=== PATIENT | male | born 1950 | race Caucasian/White ===

== ENCOUNTER 2018-03-22 18:07 | Emergency (ER) | payer OTHER ==
[2018-03-22] MEDS ORDERED: ONDANSETRON 4 MG/2 ML VIAL ONE (18:52)
[2018-03-22] MEDS ORDERED: MORPHINE 4 MG/ML SYR ONE (18:52)
--- NOTE | 2018-03-22 20:34 | EDPHYS ---
Physician Documentation [facility] Name: Brando Pizarro Age: 67 yrs Sex: Male : 1950 Arrival Date: 03/22/2018 Time: 18:11 Bed 5 Private MD: Nathen Yoon E ED Physician Abilio Danielson HPI: 03/22 19:00 This 67 yrs old Male presents to ER via EMS with complaints of Right Sided pm1 Jaw Pain. 19:00 The patient or guardian reports pain. The complaints affect the right jaw. Context of pm1 injury: resulted from Cancer. Onset: The symptoms/episode began/occurred 1 week(s) ago. Associated signs and symptoms: Pertinent negatives: shortness of breath, vomiting, dysphagia . Severity of symptoms: in the emergency department the symptoms are actually worse. The patient has experienced similar episodes in the past. The patient has been recently seen by a physician: Dr. Pat two days ago. Patient diagnosed with head and neck cancer two months ago. 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 MD Howard does not take his insurance so has seen Dr. Markham ENT, Dr. Guzman ENT, Dr. Ordoñez Oncology, Dr. Wayne Neurosurgery, and Dr Pat Oncology. Patient has pending immunotherapy with Dr. Ordoñez and Radiation therapy from Dr. Pat. Patient is presenting today with right jaw pain that started 1 week ago. He is currently taking methadone from Dr. Carrera for the right jaw pain. His went to work today so he missed a dose of his methadone. Patient without chest pain or shortness of breath, nausea, vomiting, or any chest pain equivalents. Historical: - Allergies: 18:13 Codeine; sg - PMHx: 18:13 Anxiety; Chronic pain; Diabetes - NIDDM; Hypertension; neuropathy; Cancer; sg - PSHx: 18:13 toe amputation; L shoulder repair; sg - Immunization history:: Adult Immunizations unknown. - Social history:: Smoking status: unknown. - Ebola Screening: : Patient negative for fever greater than or equal to 101.5 degrees Fahrenheit, and additional compatible Ebola Virus Disease symptoms Patient denies exposure to infectious person Patient denies travel to an Ebola-affected area in the 21 days before illness onset No symptoms or risks identified at this time. ROS: 19:00 Constitutional: Negative for fever, chills, and weight loss, Eyes: Negative for injury, pm1 pain, redness, and discharge. 19:00 Neck: Negative for injury, pain, and swelling, Cardiovascular: Negative for chest pain, palpitations, and edema, Respiratory: Negative for shortness of breath, cough, wheezing, and pleuritic chest pain, Abdomen/GI: Negative for abdominal pain, nausea, vomiting, diarrhea, and constipation, Back: Negative for injury and pain, : Negative for injury, bleeding, discharge, and swelling, MS/Extremity: Negative for injury and deformity, Skin: Negative for injury, rash, and discoloration, Neuro: Negative for headache, weakness, numbness, tingling, and seizure. 19:00 ENT: Positive for right jaw pain, Negative for drainage from ear(s), ear pain, sore throat, difficulty swallowing, difficulty handling secretions, hoarseness. Exam: 19:00 Constitutional: This is a well developed, well nourished patient who is awake, alert, pm1 and in no acute distress. Head/Face: Normocephalic, atraumatic. Eyes: Pupils equal round and reactive to light, extra-ocular motions intact. Lids and lashes normal. Conjunctiva and sclera are non-icteric and not injected. Cornea within normal limits. Periorbital areas with no swelling, redness, or edema. 19:00 Neck: Trachea midline, no thyromegaly or masses palpated, and no cervical lymphadenopathy. Supple, full range of motion without nuchal rigidity, or vertebral point tenderness. No Meningismus. Chest/axilla: Normal chest wall appearance and motion. Nontender with no deformity. No lesions are appreciated. Cardiovascular: Regular rate and rhythm with a normal S1 and S2. No gallops, murmurs, or rubs. Normal PMI, no JVD. No pulse deficits. Respiratory: Lungs have equal breath sounds bilaterally, clear to auscultation and percussion. No rales, rhonchi or wheezes noted. No increased work of breathing, no retractions or nasal flaring. Abdomen/GI: Soft, non-tender, with normal bowel sounds. No distension or tympany. No guarding or rebound. No evidence of tenderness throughout. Back: No spinal tenderness. No costovertebral tenderness. Full range of motion. Skin: Warm, dry with normal turgor. Normal color with no rashes, no lesions, and no evidence of cellulitis. MS/ Extremity: Pulses equal, no cyanosis. Neurovascular intact. Full, normal range of motion. 19:00 ENT: External ear(s): are unremarkable, Ear canal(s): are normal, TM's: are normal, Nose: is normal, Mouth: is normal, no drooling, (-) tongue elevation (-) trismus Posterior pharynx: is normal, airway is patent, no erythema, no exudate, no peritonsilar mass, no pooling of secretions, no swelling, no acute changes, Tenderness present to right periauricular area. Right jaw pain tenderness with lightly brushing back of hand against the skin and lam. 19:00 Neuro: Orientation: is normal, Motor: is normal, moves all fours, strength is 5/5 in all extremities. Vital Signs: 18:13 BP 147 / 73; Pulse 88; Resp 18; Pulse Ox 96% on R/A; sg 18:25 Temp 97.7; sg 18:38 BP 105 / 55; Pulse 70; Resp 17; Pulse Ox 100% on R/A; Weight 120.2 kg; Height 6 ft. 0 sg in. 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 pm1 20:18 Data reviewed: vital signs. Data interpreted: Pulse oximetry: on room air is 100 %. pm1 Interpretation: normal. Counseling: I had a detailed discussion with the patient and/or guardian regarding: the historical points, exam findings, and any diagnostic results supporting the discharge/admit diagnosis, the need for outpatient follow up, Oncologist - Dr. Ordoñez, to return to the emergency department if symptoms worsen or persist or if there are any questions or concerns that arise at home. 03/22 18:28 Order name: EKG; Complete Time: 18:29 pm1 03/22 18:28 Order name: EKG - Nurse/Tech; Complete Time: 18:31 pm1 03/22 18:28 Order name: IV Saline Lock; Complete Time: 18:31 pm1 Administered Medications: 18:45 Drug: morphine 4 mg Route: IVP; Site: right antecubital; sg 19:20 Follow up: Pain 9/10 Adult; Response: No adverse reaction; Pain is decreased ed1 18:45 Drug: Zofran 4 mg Route: IVP; Site: right antecubital; sg 19:20 Follow up: Response: No adverse reaction; Nausea is decreased ed1 Disposition: 03/22/18 20:33 Discharged to Home. Impression: Jaw pain. - Condition is Stable. - Discharge Instructions: Constipation, Adult, Metastatic Cancer. - Medication Reconciliation Form, Thank You Letter, Prescription Opioid Use form. - Follow up: Emergency Department; When: As needed; Reason: Worsening of condition. Follow up: Private Physician; When: 2 - 3 days; Reason: Recheck today's complaints, Continuance of care, Re-evaluation by your physician. - Problem is new. - Symptoms have improved. Addendum: 03/24/2018 07:14 Co-signature as Attending Physician, Abilio Danielson MD. r n Signatures: Fred Burnett RN RN Abilio Danielson MD MD rn Riggs, Erika, RN RN ed1 Travis Edgar, FERNANDA BRICK TESTER pm1 Corrections: (The following items were deleted from the chart) 03/22 20:56 20:33 03/22/2018 20:33 Discharged to Home. Impression: Jaw pain. Condition is Stable. ed1 Forms are Medication Reconciliation Form, Thank You Letter, Antibiotic Education, Prescription Opioid Use. Follow up: Emergency Department; When: As needed; Reason: Worsening of condition. Follow up: Private Physician; When: 2 - 3 days; Reason: Recheck today's complaints, Continuance of care, Re-evaluation by your physician. Problem is new. Symptoms have improved. pm1
--- NOTE | 2018-03-22 20:34 | ER ---
Nurse's Notes [facility] Name: Brando Pizarro Age: 67 yrs Sex: Male : 1950 Arrival Date: 03/22/2018 Time: 18:11 Bed 5 Private MD: Nathen Yoon E Diagnosis: Jaw pain Presentation: 03/22 18:15 Presenting complaint: EMS states: pt reports jaw pain that is a 22/10 on a pain scale, sg reports taking a methodone prior to EMS arrival for the pain, pt reports he has a cancer that has mets to the brain, eye and multiple other areas per pt, awaiting follow up appointment at [facility] for treatment care plan. Transition of care: patient was not received from another setting of care. Onset of symptoms was March 22, 2018. Risk Assessment: Do you want to hurt yourself or someone else? Patient reports no desire to harm self or others. Initial Sepsis Screen: Does the patient meet any 2 criteria? No. Patient's initial sepsis screen is negative. Does the patient have a suspected source of infection? No. Patient's initial sepsis screen is negative. Care prior to arrival: Glucose check: 258. 18:15 Method Of Arrival: EMS: [facility] sg 18:15 Acuity: YUMIKO 3 sg Historical: - Allergies: 18:13 Codeine; sg - PMHx: 18:13 Anxiety; Chronic pain; Diabetes - NIDDM; Hypertension; neuropathy; Cancer; sg - PSHx: 18:13 toe amputation; L shoulder repair; sg - Immunization history:: Adult Immunizations unknown. - Social history:: Smoking status: unknown. - Ebola Screening: : Patient negative for fever greater than or equal to 101.5 degrees Fahrenheit, and additional compatible Ebola Virus Disease symptoms Patient denies exposure to infectious person Patient denies travel to an Ebola-affected area in the 21 days before illness onset No symptoms or risks identified at this time. Screenin:14 Abuse screen: Denies threats or abuse. Denies injuries from another. Nutritional sv screening: No deficits noted. Tuberculosis screening: No symptoms or risk factors identified. Fall Risk None identified. Assessment: 18:17 General: Appears in no apparent distress. comfortable, well groomed, well developed, sg well nourished, Behavior is calm, cooperative, appropriate for age. Pain: Complains of pain in right jaw. Neuro: Level of Consciousness is awake, alert, obeys commands, Oriented to person, place, time, situation, Moves all extremities. Speech is normal, Facial symmetry appears normal, Reports seeing spots in the left and right eyes, has been going on now for several days. Cardiovascular: Patient's skin is warm and dry. Chest pain is denied. Respiratory: Airway is patent Respiratory effort is even, unlabored, Respiratory pattern is regular, symmetrical, Breath sounds are clear. GI: Abdomen is round obese, Reports nausea. : No signs and/or symptoms were reported regarding the genitourinary system. EENT: right eye noted to follow pen light slowly. Reports photophobia. Derm: Skin is pink, warm \\T\\ dry. Musculoskeletal: No deficits noted. 19:18 Reassessment: Patient appears in no apparent distress at this time. Patient and/or ed1 family updated on plan of care and expected duration. Pain level reassessed. Patient is alert, oriented x 3, equal unlabored respirations, skin warm/dry/pink. Pt states "My pain has lessened but it is still there. Also, do you think the doctor can give me something for constipation." Pt reports BM yesterday. Travis notified, no new orders received. 20:54 Reassessment: Patient appears in no apparent distress at this time. Patient and/or ed1 family updated on plan of care and expected duration. Pain level reassessed. Patient is alert, oriented x 3, equal unlabored respirations, skin warm/dry/pink. Patient states feeling better. Patient states symptoms have improved. Vital Signs: 18:13 BP 147 / 73; Pulse 88; Resp 18; Pulse Ox 96% on R/A; sg 18:25 Temp 97.7; sg 18:38 BP 105 / 55; Pulse 70; Resp 17; Pulse Ox 100% on R/A; Weight 120.2 kg; Height 6 ft. 0 sg in. 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 sg 18:11 Nathen Yoon MD is Private Physician. sg 18:12 Arm band placed on. sg 18:14 Travis Edgar NP is PHCP. pm1 18:14 Abilio Danielson MD is Attending Physician. pm1 18:14 Patient has correct armband on for positive identification. Bed in low position. sv court monitor on. Pulse ox on. NIBP on. Door closed. Head of bed elevated. 18:17 Triage completed. sg 18:30 Inserted saline lock: 20 gauge in right antecubital area, using aseptic technique. jb1 18:30 EKG done, by ED staff, reviewed by Travis Edgar NP. jb1 19:09 Es Bravo RN is Primary Nurse. ed1 20:54 No provider procedures requiring assistance completed. IV discontinued, intact, ed1 bleeding controlled, No redness/swelling at site. Pressure dressing applied. Administered Medications: 18:45 Drug: morphine 4 mg Route: IVP; Site: right antecubital; sg 19:20 Follow up: Pain 9/10 Adult; Response: No adverse reaction; Pain is decreased ed1 18:45 Drug: Zofran 4 mg Route: IVP; Site: right antecubital; sg 19:20 Follow up: Response: No adverse reaction; Nausea is decreased ed1 Outcome: 20:33 Discharge ordered by MD. pm1 20:54 Discharged to home ambulatory, with significant other. ed1 20:54 Condition: good 20:54 Discharge instructions given to patient, Instructed on discharge instructions, follow up and referral plans. Demonstrated understanding of instructions, follow-up care. 20:56 Patient left the ED. ed1 Signatures: Ravi Murphy jb1 Nallely Hall RN RN Fred Burnett RN RN Es Bravo RN RN ed1 Travis Edgar NP VASCULAR RADIOLOGIST pm1 Corrections: (The following items were deleted from the chart) 18:21 18:13 BP 147 / 73; Pulse 88bpm; Resp 18bpm; Pulse Ox 96% RA; sg sg 18:21 18:15 Care prior to arrival: None. sg sg
[2018-03-22 21:14] VITALS: BP 109/76; TEMP 97.2; O2SAT 99
--- NOTE | 2018-03-23 08:16 | EKG ---
Test Date: 2018-03-22 Test Time: 18:13:49 Boat Ride Operator: NAS MEASUREMENT RESULTS: Intervals: Rate: 74 VA: 164 QRSD: 112 QT: 428 QTc: 475 [place]: P: 32 VA: 164 QRS: -37 T: -74 INTERPRETIVE STATEMENTS: Normal sinus rhythm Left axis deviation ST & T wave abnormality, consider lateral ischemia Prolonged QT Abnormal ECG Compared to ECG 01/20/2016 07:44:28 ST (T wave) deviation now present Possible ischemia now present Ventricular premature complex(es) no longer present Electronically Signed On 03-23-18 08:09:11 SANITATION SUPERINTENDENT by Ralph Ya
== END 2018-03-22 20:56 | disposition home or self-care (01) ==
LOC: ER 18:07
DX: R68.84 Jaw pain (principal); C79.89 Secondary malignant neoplasm of other specified sites
CPT/HCPCS: 93005; 96374; 96375; 99284; J2405

== ENCOUNTER 2018-03-26 08:13 | Emergency (ER) | payer OTHER ==
[2018-03-26] MEDS ORDERED: NA CHLORIDE 0.9% 1,000 ML ONE (09:08)
[2018-03-26] MEDS ORDERED: FENTANYL CITR 100 MCG/2 ML ONE (09:18)
[2018-03-26] MEDS ORDERED: ONDANSETRON 4 MG/2 ML VIAL ONE (09:18)
--- NOTE | 2018-03-26 10:44 | ER ---
Nurse's Notes [facility] Name: Brando Pizarro Age: 67 yrs Sex: Male : 1950 Arrival Date: 03/26/2018 Time: 08:16 Bed 6 Private MD: Nathen Yoon E Diagnosis: Headache Presentation: 03/26 08:17 Presenting complaint: Patient states: "I am having head pain where my brain cancer is aa5 and back pain". Pt states "my pain pills were working and now they are not". Pt also reports vomiting. Pt reports being seen here a few days ago. 08:17 Method Of Arrival: Wheelchair aa5 08:17 Transition of care: patient was not received from another setting of care. Onset of aa5 symptoms was March 2018. Care prior to arrival: None. 08:17 Acuity: YUMIKO 3 aa5 10:57 Risk Assessment: Do you want to hurt yourself or someone else? Patient reports no bp desire to harm self or others. Initial Sepsis Screen: Does the patient meet any 2 criteria? No. Patient's initial sepsis screen is negative. Does the patient have a suspected source of infection? No. Patient's initial sepsis screen is negative. Triage Assessment: 08:24 General: Appears in no apparent distress. uncomfortable, Behavior is cooperative, bp appropriate for age, anxious. Pain: Complains of pain in head and back. Historical: - Allergies: 08:18 Codeine; aa5 - PMHx: 08:18 Anxiety; Chronic pain; Diabetes - NIDDM; Hypertension; neuropathy; Brain Cancer; aa5 - PSHx: 08:18 toe amputation; L shoulder repair; aa5 - Immunization history:: Adult Immunizations up to date. - Ebola Screening: : No symptoms or risks identified at this time. - Social history:: Smoking status: Patient/guardian denies using tobacco. Screenin:25 Abuse screen: Denies threats or abuse. Denies injuries from another. Nutritional bp screening: No deficits noted. Tuberculosis screening: No symptoms or risk factors identified. Fall Risk None identified. Assessment: 08:30 General: Appears in no apparent distress. uncomfortable, Behavior is cooperative, bp appropriate for age, anxious. Pain: Complains of pain in back and head. Neuro: Level of Consciousness is awake, alert, obeys commands, Oriented to person, place, time, situation, Appropriate for age. Cardiovascular: No deficits noted. Respiratory: No deficits noted. Airway Respiratory effort is even, unlabored, Respiratory pattern is regular, symmetrical. GI: No signs and/or symptoms were reported involving the gastrointestinal system. : No signs and/or symptoms were reported regarding the genitourinary system. EENT: No deficits noted. Derm: No deficits noted. Musculoskeletal: Circulation, motion, and sensation intact. Range of motion: intact in all extremities. 10:56 Reassessment: PT D/C HOME VIA W/C WITH FAMILY, DX WITH HEADACHE. bp Vital Signs: 08:31 BP 120 / 61; Pulse 75; Resp 16; Temp 97.6; Pulse Ox 100% on R/A; bp 09:30 BP 101 / 58; Pulse 70; Resp 14; Pulse Ox 96% ; bp 10:20 BP 109 / 75; Pulse 72; Resp 18; Pulse Ox 99% on R/A; ca1 ED Course: 08:16 Patient arrived in ED. mr 08:16 Nathen Yoon MD is Private Physician. mr 08:18 Dennis Marshall, JYOTHI is Primary Nurse. bp 08:18 Arm band placed on. aa5 08:24 Triage completed. aa5 08:25 Patient has correct armband on for positive identification. Bed in low position. Call bp light in reach. Side rails up X2. Adult w/ patient. 08:26 Travis Edgar NP is PHCP. pm1 08:26 Stevie Ochoa MD is Attending Physician. pm1 09:05 Inserted saline lock: 20 gauge in right antecubital area, using aseptic technique. bp Blood collected. 10:56 No provider procedures requiring assistance completed. IV discontinued, intact, bp bleeding controlled, No redness/swelling at site. Pressure dressing applied. Administered Medications: 09:04 Drug: NS 0.9% 1000 ml Route: IV; Rate: 1000 ml; Site: right antecubital; bp 10:00 Follow up: IV Status: Completed infusion; IV Intake: 1000ml bp 09:11 Drug: fentaNYL (PF) 50 mcg Route: IVP; Site: right antecubital; bp 10:56 Follow up: Response: Pain is decreased bp 09:11 Drug: Zofran 4 mg Route: IVP; Site: right antecubital; bp 10:56 Follow up: Response: No adverse reaction bp Intake: 10:00 IV: 1000ml; Total: 1000ml. bp Outcome: 10:44 Discharge ordered by . pm1 10:57 Discharged to home via wheelchair, with family. bp 10:57 Condition: stable 10:57 Discharge instructions given to patient, family, Instructed on discharge instructions, follow up and referral plans. medication usage, Demonstrated understanding of instructions, follow-up care, medications, Prescriptions given X 1. 10:58 Patient left the ED. bp Signatures: Lian Bunch mr HymanThu, RN RN aa5 Benton Pearl RN RN la1 Travis Edgar, FOUNDRY PATTERNMAKER FOUNDRY PATTERNMAKER pm1 Dennis Marshall RN RN bp Radha Welch RN RN ca1 Corrections: (The following items were deleted from the chart) 08:24 08:17 Presenting complaint: Patient states: "I am having head pain where my brain aa5 cancer is and back pain". Pt states "my pain pills were working and now they are not". Pt also reports vomiting. aa5 09:49 08:31 BP 120 / 61; Pulse 75bpm; Resp 16bpm; Pulse Ox 100% RA; la1 bp
--- NOTE | 2018-03-26 10:44 | EDPHYS ---
Physician Documentation [facility] Name: Brando Pizarro Age: 67 yrs Sex: Male : 1950 Arrival Date: 03/26/2018 Time: 08:16 Bed 6 Private MD: Nathen Yoon E ED Physician Stevie Ochoa HPI: 03/26 09:05 This 67 yrs old Male presents to ER via Wheelchair with complaints of Pain pm1 All Over. 09:05 The patient complains of pain to the right jaw and right base of the skull and right pm1 side of neck. The patient describes the headache as aching, constant. Onset: The symptoms/episode began/occurred 3 day(s) ago, and became worse this morning. Associated signs and symptoms: Pertinent negatives: dizziness, fever, nausea, neck stiffness, paresthesias, Photophobia rash, vomiting, weakness. Severity of symptoms: in the emergency department the pain is actually worse. Headache History: The patient has had previous headaches and this one is similar to previous episodes. The symptoms are alleviated by methadone the symptoms are aggravated by nothing. The patient has experienced similar episodes in the past, chronically. The patient has been recently seen at the [facility] Emergency Department, this week, for similar complaints. Patient with metastatic neck and head cancer and is taking methadone for his pain. Patient reports methadone has not been working for his pain for the past 3 days. Historical: - Allergies: 08:18 Codeine; aa5 - PMHx: 08:18 Anxiety; Chronic pain; Diabetes - NIDDM; Hypertension; neuropathy; Brain Cancer; aa5 - PSHx: 08:18 toe amputation; L shoulder repair; aa5 - Immunization history:: Adult Immunizations up to date. - Ebola Screening: : No symptoms or risks identified at this time. - Social history:: Smoking status: Patient/guardian denies using tobacco. ROS: 09:05 Constitutional: Negative for fever, chills, and weight loss, Eyes: Negative for injury, pm1 pain, redness, and discharge, ENT: Negative for injury, pain, and discharge, Cardiovascular: Negative for chest pain, palpitations, and edema. 09:05 Respiratory: Negative for shortness of breath, cough, wheezing, and pleuritic chest pain, Abdomen/GI: Negative for abdominal pain, nausea, vomiting, diarrhea, and constipation, Back: Negative for injury and pain, : Negative for injury, bleeding, discharge, and swelling, MS/Extremity: Negative for injury and deformity, Skin: Negative for injury, rash, and discoloration. 09:05 Neck: Positive for pain at rest, of the right trapezius, Negative for stiffness. 09:05 Neuro: Positive for headache, Negative for dizziness, numbness, tingling, weakness. Exam: 09:05 Constitutional: This is a well developed, well nourished patient who is awake, alert, pm1 and in no acute distress. Eyes: Pupils equal round and reactive to light, extra-ocular motions intact. Lids and lashes normal. Conjunctiva and sclera are non-icteric and not injected. Cornea within normal limits. Periorbital areas with no swelling, redness, or edema. ENT: Nares patent. No nasal discharge, no septal abnormalities noted. Tympanic membranes are normal and external auditory canals are clear. Oropharynx with no redness, swelling, or masses, exudates, or evidence of obstruction, uvula midline. Mucous membranes moist. Chest/axilla: Normal chest wall appearance and motion. Nontender with no deformity. No lesions are appreciated. Cardiovascular: Regular rate and rhythm with a normal S1 and S2. No gallops, murmurs, or rubs. No pulse deficits. Respiratory: Lungs have equal breath sounds bilaterally, clear to auscultation and percussion. No rales, rhonchi or wheezes noted. No increased work of breathing, no retractions or nasal flaring. Abdomen/GI: Soft, non-tender, with normal bowel sounds. No distension or tympany. No guarding or rebound. No evidence of tenderness throughout. Back: No spinal tenderness. No costovertebral tenderness. Full range of motion. Skin: Warm, dry with normal turgor. Normal color with no rashes, no lesions, and no evidence of cellulitis. MS/ Extremity: Pulses equal, no cyanosis. Neurovascular intact. Full, normal range of motion. 09:05 Head/face: Noted is no obvious of injury or deformity except tenderness, of the right ear and right jaw. 09:05 Neck: External neck: tenderness, of the right trapezius, C-spine: vertebral tenderness, is not appreciated. 09:05 Neuro: Orientation: is normal, Mentation: is normal, Motor: moves all fours, strength is normal, strength is 5/5 in all extremities, Sensation: is normal, no obvious gross deficits. Vital Signs: 08:31 BP 120 / 61; Pulse 75; Resp 16; Temp 97.6; Pulse Ox 100% on R/A; bp 09:30 BP 101 / 58; Pulse 70; Resp 14; Pulse Ox 96% ; bp 10:20 BP 109 / 75; Pulse 72; Resp 18; Pulse Ox 99% on R/A; ca1 MDM: 08:50 Patient medically screened. pm1 10:40 Data reviewed: vital signs. Data interpreted: Pulse oximetry: on room air is 99 %. pm1 Interpretation: normal. Counseling: I had a detailed discussion with the patient and/or guardian regarding: the historical points, exam findings, and any diagnostic results supporting the discharge/admit diagnosis, the need for outpatient follow up, Oncology, to return to the emergency department if symptoms worsen or persist or if there are any questions or concerns that arise at home. 10:40 ED course: Patient's pain improved with fentanyl. Patient feels ready to go home pm1 because pain at prior baseline level. Requested to have lactulose for constipation related to methadone. 03/26 08:59 Order name: IV Saline Lock; Complete Time: 09:04 pm1 Administered Medications: 09:04 Drug: NS 0.9% 1000 ml Route: IV; Rate: 1000 ml; Site: right antecubital; bp 10:00 Follow up: IV Status: Completed infusion; IV Intake: 1000ml bp 09:11 Drug: fentaNYL (PF) 50 mcg Route: IVP; Site: right antecubital; bp 10:56 Follow up: Response: Pain is decreased bp 09:11 Drug: Zofran 4 mg Route: IVP; Site: right antecubital; bp 10:56 Follow up: Response: No adverse reaction bp Disposition: 11:40 Co-signature as Attending Physician, Stevie Ochoa MD I agree with the assessment and 4 plan of care. Disposition: 03/26/18 10:44 Discharged to Home. Impression: Headache. - Condition is Stable. - Discharge Instructions: Constipation, Adult, General Headache Without Cause. - Prescriptions for Lactulose 10 gram/15 mL Oral Solution - take 30 milliliter by ORAL route once daily; 300 milliliter. - Medication Reconciliation Form, Thank You Letter, Prescription Opioid Use form. - Follow up: Emergency Department; When: As needed; Reason: Worsening of condition. Follow up: Private Physician; When: 2 - 3 days; Reason: Recheck today's complaints, Continuance of care, Re-evaluation by your physician. - Problem is new. - Symptoms have improved. Signatures: Thu Hyman RN RN aa5 Travis Edgar NP ASSISTANT PRESS OPERATOR pm1 Dennis Marshall RN RN bp Stevie Ochoa MD MD tw4 Corrections: (The following items were deleted from the chart) 10:58 10:44 03/26/2018 10:44 Discharged to Home. Impression: Headache. Condition is Stable. bp Forms are Medication Reconciliation Form, Thank You Letter, Antibiotic Education, Prescription Opioid Use. Follow up: Emergency Department; When: As needed; Reason: Worsening of condition. Follow up: Private Physician; When: 2 - 3 days; Reason: Recheck today's complaints, Continuance of care, Re-evaluation by your physician. Problem is new. Symptoms have improved. pm1
[2018-03-26 11:05] VITALS: TEMP 97.6
[2018-03-26 11:08] VITALS: BP 109/75; O2SAT 99
== END 2018-03-26 10:58 | disposition home or self-care (01) ==
LOC: ER 08:13
DX: R51 Headache (principal); I10 Essential (primary) hypertension; Z88.5 Allergy status to narcotic agent; Z85.841 Personal history of malignant neoplasm of brain
CPT/HCPCS: J2405; J3010; J7030

== ENCOUNTER 2018-04-03 10:32 | Observation (INO) | payer OTHER ==
--- NOTE | 2018-04-03 11:37 | ER ---
Nurse's Notes [facility] Name: Brando Pizarro Age: 67 yrs Sex: Male : 1950 Arrival Date: 04/03/2018 Time: 10:35 Bed 8 Private MD: Nathen Yoon E Diagnosis: Gastrointestinal hemorrhage, unspecified-upper;Weakness;Anemia, unspecified;Elevated white blood cell count;Pressure ulcer of buttock;Unspecified combined systolic (congestive) and diastolic (congestive) heart failure Presentation: 04/03 10:37 Presenting complaint: Patient states: low HBG-7.8 on Tuesday, lethargic, pale, SOB with sv exertion, generalized weakness. Transition of care: patient was not received from another setting of care. Onset of symptoms was March 31, 2018. Care prior to arrival: None. 10:37 Method Of Arrival: Wheelchair sv 10:37 Acuity: YUMIKO 3 sv 10:40 Note Pt is on immunotherapy. sv 10:50 Risk Assessment: Do you want to hurt yourself or someone else? Patient reports no ca1 desire to harm self or others. 10:50 Initial Sepsis Screen: Does the patient meet any 2 criteria? No. Patient's initial ca1 sepsis screen is negative. Does the patient have a suspected source of infection? Yes: Skin breakdown/wound. Historical: - Allergies: 10:40 Codeine; sv - PMHx: 10:40 Anxiety; brain cancer; Cancer; Chronic pain; Diabetes - NIDDM; Hypertension; neuropathy;sv - PSHx: 10:40 toe amputation; L shoulder repair; sv - Immunization history:: Adult Immunizations not up to date. - Social history:: Smoking status: Patient/guardian denies using tobacco. - Family history:: not pertinent. - Ebola Screening: : Patient denies exposure to infectious person Patient denies travel to an Ebola-affected area in the 21 days before illness onset. Screenin:50 Abuse screen: Denies threats or abuse. Denies injuries from another. Nutritional ca1 screening: No deficits noted. Tuberculosis screening: No symptoms or risk factors identified. Fall Risk Fall in past 12 months (25 points). IV access (20 points). Assessment: 10:50 General: Appears in no apparent distress. ill, Behavior is calm, cooperative, ca1 appropriate for age. Pain: Complains of pain in head Pain does not radiate. Pain currently is 7 out of 10 on a pain scale. Neuro: Level of Consciousness is awake, alert, obeys commands, Oriented to person, place, time, situation. Cardiovascular: Heart tones S1 S2 present Capillary refill is > 3 seconds. Respiratory: Airway is patent Trachea midline Respiratory effort is even, unlabored, Respiratory pattern is regular, symmetrical, Breath sounds are clear bilaterally. GI: Abdomen is flat, non-distended, Bowel sounds present X 4 quads. Abd is soft and non tender X 4 quads. : No signs and/or symptoms were reported regarding the genitourinary system. EENT: No signs and/or symptoms were reported regarding the EENT system. Derm: Skin is intact, Skin is pale, Skin temperature is warm. Musculoskeletal: Circulation, motion, and sensation intact. 11:49 Reassessment: Patient appears in no apparent distress at this time. Patient and/or ca1 family updated on plan of care and expected duration. Pain level reassessed. Patient is alert, oriented x 3, equal unlabored respirations, skin warm/dry/pink. at bedside. 12:30 Reassessment: Patient appears in no apparent distress at this time. Patient is alert, ca1 oriented x 3, equal unlabored respirations, skin warm/dry/pink. Patient complains of Headache and pain at bedsore. Notified provider. 13:10 Reassessment: Received call from blood bank stated they found unknown antibody and aa5 stated need for blood draw send off. Blood will be drawn by laborer heading. Dr. Howard notified and transfusion on hold. . 13:13 Reassessment: Wound dressing done. ca1 13:13 Derm: Decubitus located on sacrum approximately 1cm is stage I is draining none noted. ca1 14:01 Reassessment: 2nd set of blood cultures drawn and sent to lab. RBC consent form signed aa5 by patient (see pt's chart). 14:01 Neuro: Level of Consciousness is awake, alert, obeys commands, Oriented to person, aa5 place, time, situation. Respiratory: Airway is patent Respiratory effort is even, unlabored, Respiratory pattern is regular, symmetrical. Derm: Skin is dry, Skin is pale, Skin temperature is warm. 14:03 Reassessment: Patient complains of headache, informed provider. ca1 Vital Signs: 10:39 BP 123 / 65; Pulse 79; Resp 20; Temp 98.2; Pulse Ox 99% ; Weight 108.86 kg; Height 6 sv ft. 0 in. (182.88 cm); Pain 6/10; 11:30 BP 127 / 70; Pulse 76; Resp 18; Pulse Ox 98% on R/A; ca1 12:50 BP 118 / 69; Pulse 76; Resp 21; Pulse Ox 100% on R/A; ca1 13:00 BP 120 / 66; Pulse 75; Resp 19; Pulse Ox 95% on R/A; ca1 14:00 BP 125 / 69; Pulse 79; Resp 19; Pulse Ox 96% on R/A; ca1 14:42 BP 121 / 58; Pulse 74; Resp 19; Pulse Ox 98% on R/A; ca1 10:39 Body Mass Index 32.55 (108.86 kg, 182.88 cm) sv ED Course: 10:35 Patient arrived in ED. mr 10:36 Nathen Yoon MD is Private Physician. mr 10:39 Triage completed. sv 10:40 Arm band placed on. sv 10:43 Radha Welch, JYOTHI is Primary Nurse. ca1 10:50 Patient has correct armband on for positive identification. Placed in gown. Bed in low ca1 position. Call light in reach. Side rails up X2. monitoring coordinator on. Pulse ox on. NIBP on. Warm blanket given. 10:52 Jonah Howard MD is Attending Physician. julian 11:15 EKG done, by plating technician. reviewed by Jonah Howard MD. at1 11:26 Inserted saline lock: 20 gauge in right antecubital area, using aseptic technique. em1 Blood collected. 11:26 Initial lab(s) drawn, by ct, sent to lab. em1 11:30 Inserted saline lock: 20 gauge in left antecubital area, using aseptic technique. Blood ca1 collected. 11:34 Lolita Wayne MD is Hospitalizing Provider. julian 12:09 X-ray completed. Portable x-ray completed in exam room. Patient tolerated procedure jw2 well. 12:12 XRAY Chest (1 view) In Process Unspecified. EDMS 13:00 Notified ED physician of a critical lab result(s). Trop=0.76. iw 14:37 No provider procedures requiring assistance completed. Patient admitted, IV remains in ca1 place. Administered Medications: 11:35 Drug: ProTONIX 80 mg Route: IVP; Site: left antecubital; ca1 13:17 Follow up: Response: No adverse reaction ca1 11:50 Drug: ProTONIX 8 mg/hr Route: IV; Rate: 25 ml/hr; Site: left antecubital; ca1 13:16 Follow up: IV Status: Infusion continued upon admission ca1 12:40 Drug: fentaNYL (PF) 50 mcg Route: IVP; Site: right antecubital; ca1 14:03 Follow up: Response: No adverse reaction; Pain is unchanged, physician notified ca1 12:42 Drug: Zofran 4 mg Route: IVP; Site: right antecubital; ca1 14:34 Follow up: Response: No adverse reaction; Nausea is decreased ca1 12:45 Drug: Lasix 40 mg Route: IVP; Site: right antecubital; ca1 14:35 Follow up: Urine output 800 ml; Response: No adverse reaction ca1 14:05 Drug: fentaNYL (PF) 50 mcg Route: IVP; Site: right antecubital; ca1 15:01 Follow up: Response: No adverse reaction; Pain is decreased ca1 14:10 Drug: Cefepime 1 grams Route: IVPB; Rate: 200 ml/hr; Infused Over: 30 mins; Site: right ca1 antecubital; 14:35 Follow up: Response: No adverse reaction; IV Status: IVP per pharmacy protocol. ca1 14:20 Drug: vancoMYCIN 1 grams Route: IVPB; Infused Over: 2 hrs; Site: right antecubital; ca1 14:35 Follow up: Response: No adverse reaction; IV Status: Infusion continued upon admission ca1 Output: 14:35 Urine: 800ml; Total: 800ml. ca1 Outcome: 11:35 Decision to Hospitalize by Provider. julian 14:59 Admitted to Med/surg accompanied by tech, via stretcher, room 207, with chart, Report ca1 called to Kaelyn Jones RN 14:59 Condition: stable 14:59 Instructed on the need for admit. 15:09 Patient left the ED. ca1 Signatures: Dispatcher [employer] EDNallely Sorensen RN RN sv Anderson, Corey, MD MD cha Rivera, Lian mr Kennedi Rodriguez RN RN iw Martinez, Eric em1 Thu Hyman RN RN aa5 Swathi Conrad, toggler EKG Tat1 Sammie Wadsworth jw2 Radha Welch RN RN ca1 Corrections: (The following items were deleted from the chart) 14:16 14:01 Reassessment: Patient is alert, oriented x 3, equal unlabored respirations, skin aa5 warm/dry/pink. 2nd set of blood cultures drawn and sent to lab. RBC consent form signed by patient (see pt's chart). aa5 14:52 13:13 Reassessment: Wound dressing done. ca1 ca1
--- NOTE | 2018-04-03 11:37 | EDPHYS ---
Physician Documentation [facility] Name: Brando Pizarro Age: 67 yrs Sex: Male : 1950 Arrival Date: 04/03/2018 Time: 10:35 Bed 8 Private MD: Nathen Yoon E ED Physician Jonah Howard HPI: 04/03 11:28 This 67 yrs old Male presents to ER via Wheelchair with complaints of julian Abnormal Lab Results. 11:28 The patient presents to the emergency department with rectal bleeding, a moderate julian amount, melena, with multiple such episodes. Onset: The symptoms/episode began/occurred 3 day(s) ago. Abdominal pain: none is appreciated. Modifying factors: The symptoms are alleviated by nothing, the symptoms are aggravated by nothing. weakness. The patient presents with generalized weakness. Modifying factors: The symptoms are alleviated by closing eyes, lying down. Severity of symptoms: At their worst the symptoms were moderate in the emergency department the symptoms are unchanged. Historical: - Allergies: 10:40 Codeine; sv - PMHx: 10:40 Anxiety; brain cancer; Cancer; Chronic pain; Diabetes - NIDDM; Hypertension; neuropathy;sv - PSHx: 10:40 toe amputation; L shoulder repair; sv - Immunization history:: Adult Immunizations not up to date. - Social history:: Smoking status: Patient/guardian denies using tobacco. - Family history:: not pertinent. - Ebola Screening: : Patient denies exposure to infectious person Patient denies travel to an Ebola-affected area in the 21 days before illness onset. ROS: 11:28 Constitutional: Negative for fever, chills, and weight loss, Eyes: Negative for injury, julian pain, redness, and discharge, ENT: Negative for injury, pain, and discharge, Neck: Negative for injury, pain, and swelling, Cardiovascular: Negative for chest pain, palpitations, and edema, Respiratory: Negative for shortness of breath, cough, wheezing, and pleuritic chest pain, Abdomen/GI: Negative for abdominal pain, nausea, vomiting, diarrhea, and constipation, : Negative for injury, bleeding, discharge, and swelling, Neuro: Negative for headache, weakness, numbness, tingling, and seizure, Psych: Negative for depression, anxiety, suicide ideation, homicidal ideation, and hallucinations, Allergy/Immunology: Negative for hives, rash, and allergies, Endocrine: Negative for neck swelling, polydipsia, polyuria, polyphagia, and marked weight changes, Hematologic/Lymphatic: Negative for swollen nodes, abnormal bleeding, and unusual bruising. 11:28 Abdomen/GI: Positive for black/tarry stool, rectal bleeding. 11:28 Back: Positive for 11:28 Skin: Positive for pallor. Exam: 11:28 Constitutional: This is a well developed, well nourished patient who is awake, alert, julian and in no acute distress. Head/Face: Normocephalic, atraumatic. ENT: Nares patent. No nasal discharge, no septal abnormalities noted. Tympanic membranes are normal and external auditory canals are clear. Oropharynx with no redness, swelling, or masses, exudates, or evidence of obstruction, uvula midline. Mucous membranes moist. Neck: Trachea midline, no thyromegaly or masses palpated, and no cervical lymphadenopathy. Supple, full range of motion without nuchal rigidity, or vertebral point tenderness. No Meningismus. Chest/axilla: Normal chest wall appearance and motion. Nontender with no deformity. No lesions are appreciated. Cardiovascular: Regular rate and rhythm with a normal S1 and S2. No gallops, murmurs, or rubs. Normal PMI, no JVD. No pulse deficits. Respiratory: Lungs have equal breath sounds bilaterally, clear to auscultation and percussion. No rales, rhonchi or wheezes noted. No increased work of breathing, no retractions or nasal flaring. Back: No spinal tenderness. No costovertebral tenderness. Full range of motion. Male : Normal genitalia with no discharge or lesions. MS/ Extremity: Pulses equal, no cyanosis. Neurovascular intact. Full, normal range of motion. Neuro: Awake and alert, GCS 15, oriented to person, place, time, and situation. Cranial nerves II-XII grossly intact. Motor strength 5/5 in all extremities. Sensory grossly intact. Cerebellar exam normal. Normal gait. Psych: Awake, alert, with orientation to person, place and time. Behavior, mood, and affect are within normal limits. 11:28 Abdomen/GI: Inspection: abdomen appears normal, Bowel sounds: normal, Palpation: abdomen is soft and non-tender, Rectal exam: rectal tone normal, Stool: guaiac positive, black, hemorrhoid(s), are not appreciated, mass, is not appreciated, swelling, is not appreciated, tenderness, is not appreciated, Liver: no appreciated palpable abnormalities, Hernia: not appreciated. Vital Signs: 10:39 BP 123 / 65; Pulse 79; Resp 20; Temp 98.2; Pulse Ox 99% ; Weight 108.86 kg; Height 6 sv ft. 0 in. (182.88 cm); Pain 6/10; 11:30 BP 127 / 70; Pulse 76; Resp 18; Pulse Ox 98% on R/A; ca1 12:50 BP 118 / 69; Pulse 76; Resp 21; Pulse Ox 100% on R/A; ca1 13:00 BP 120 / 66; Pulse 75; Resp 19; Pulse Ox 95% on R/A; ca1 14:00 BP 125 / 69; Pulse 79; Resp 19; Pulse Ox 96% on R/A; ca1 14:42 BP 121 / 58; Pulse 74; Resp 19; Pulse Ox 98% on R/A; ca1 10:39 Body Mass Index 32.55 (108.86 kg, 182.88 cm) sv MDM: 10:52 Patient medically screened. [facility] 12:35 Data reviewed: vital signs, nurses notes, lab test result(s), EKG, radiologic studies, julian plain films. 04/03 11:12 Order name: Occult Blood--Ancillary; Complete Time: 14:06 04/03 11:27 Order name: Basic Metabolic Panel; Complete Time: 14:06 [facility] 04/03 11:27 Order name: CBC with Diff; Complete Time: 12:30 [facility] 04/03 11:27 Order name: LFT's; Complete Time: 14:06 [facility] 04/03 11:27 Order name: Magnesium; Complete Time: 14:06 [facility] 04/03 11:27 Order name: NT PRO-BNP; Complete Time: 14:06 [facility] 04/03 11:27 Order name: PT-INR; Complete Time: 12:53 [facility] 04/03 11:27 Order name: Troponin (emerg Dept Use Only); Complete Time: 14:06 [facility] 04/03 11:27 Order name: Lipase; Complete Time: 14:06 [facility] 04/03 11:27 Order name: Type And Screen [facility] 04/03 11:31 Order name: Platelet Function Analysis; Complete Time: 14:06 [facility] 04/03 12:24 Order name: Antibody Identification [facility] 04/03 12:34 Order name: Blood Culture Adult (2) [facility] 04/03 12:34 Order name: Procalcitonin [facility] 04/03 11:27 Order name: XRAY Chest (1 view); Complete Time: 12:30 [facility] 04/03 11:27 Order name: EKG; Complete Time: 11:28 [facility] 04/03 11:27 Order name: Cardiac monitoring; Complete Time: 11:28 [facility] 04/03 12:34 Order name: Lactate [facility] 04/03 12:36 Order name: ABO/RH no charge; Complete Time: 12:53 [facility] 04/03 12:47 Order name: Wound Culture [facility] 04/03 12:49 Order name: CONS Physician Consult [facility] 04/03 13:05 Order name: Sendout Antibody ID [facility] 04/03 11:27 Order name: EKG - Nurse/Tech; Complete Time: 11:28 [facility] 04/03 11:27 Order name: IV Saline Lock; Complete Time: 11:50 [facility] 04/03 11:27 Order name: Labs collected and sent; Complete Time: 11:50 [facility] 04/03 11:27 Order name: O2 Per Protocol; Complete Time: 11:28 [facility] 04/03 11:27 Order name: O2 Sat Monitoring; Complete Time: 11:28 [facility] 04/03 11:27 Order name: IV - Large Bore; Complete Time: 11:53 [facility] 04/03 12:34 Order name: Wound dressing; Complete Time: 13:11 [facility] Administered Medications: 11:35 Drug: ProTONIX 80 mg Route: IVP; Site: left antecubital; ca1 13:17 Follow up: Response: No adverse reaction ca1 11:50 Drug: ProTONIX 8 mg/hr Route: IV; Rate: 25 ml/hr; Site: left antecubital; ca1 13:16 Follow up: IV Status: Infusion continued upon admission ca1 12:40 Drug: fentaNYL (PF) 50 mcg Route: IVP; Site: right antecubital; ca1 14:03 Follow up: Response: No adverse reaction; Pain is unchanged, physician notified ca1 12:42 Drug: Zofran 4 mg Route: IVP; Site: right antecubital; ca1 14:34 Follow up: Response: No adverse reaction; Nausea is decreased ca1 12:45 Drug: Lasix 40 mg Route: IVP; Site: right antecubital; ca1 14:35 Follow up: Urine output 800 ml; Response: No adverse reaction ca1 14:05 Drug: fentaNYL (PF) 50 mcg Route: IVP; Site: right antecubital; ca1 15:01 Follow up: Response: No adverse reaction; Pain is decreased ca1 14:10 Drug: Cefepime 1 grams Route: IVPB; Rate: 200 ml/hr; Infused Over: 30 mins; Site: right ca1 antecubital; 14:35 Follow up: Response: No adverse reaction; IV Status: IVP per pharmacy protocol. ca1 14:20 Drug: vancoMYCIN 1 grams Route: IVPB; Infused Over: 2 hrs; Site: right antecubital; ca1 14:35 Follow up: Response: No adverse reaction; IV Status: Infusion continued upon admission ca1 Disposition: 04/03/18 11:35 Hospitalization ordered by Lolita Wayne for Inpatient Admission. Preliminary diagnosis are Gastrointestinal hemorrhage, unspecified - upper, Weakness, Anemia, unspecified, Elevated white blood cell count, Pressure ulcer of buttock, Unspecified combined systolic (congestive) and diastolic (congestive) heart failure. - Bed requested for Telemetry/MedSurg (Inpatient). - Status is Inpatient Admission. ca1 - Condition is Fair. - Problem is new. - Symptoms have improved. UTI on Admission? No Signatures: Dispatcher [employer] EDMS Kirsten Preston Stephanie, JYOTHI RN Jonah Hernandez MD MD cha Acob, Cheryl, RN RN ca1 Corrections: (The following items were deleted from the chart) 12:36 11:35 Hospitalization Ordered by Lolita Wayne MD for Inpatient Admission. Preliminary julian diagnosis is Gastrointestinal hemorrhage, unspecified - upper; Weakness. Bed requested for Telemetry/MedSurg (Inpatient). Status is Inpatient Admission. Condition is Fair. Problem is new. Symptoms have improved. UTI on Admission? No. julian 12:54 12:36 04/03/2018 11:35 Hospitalization Ordered by Lolita Wayne MD for Inpatient julian Admission. Preliminary diagnosis is Gastrointestinal hemorrhage, unspecified - upper; Weakness; Anemia, unspecified; Elevated white blood cell count; Pressure ulcer of buttock. Bed requested for Telemetry/MedSurg (Inpatient). Status is Inpatient Admission. Condition is Fair. Problem is new. Symptoms have improved. UTI on Admission? No. julian 13:38 12:54 04/03/2018 11:35 Hospitalization Ordered by Lolita Wayne MD for Inpatient bd Admission. Preliminary diagnosis is Gastrointestinal hemorrhage, unspecified - upper; Weakness; Anemia, unspecified; Elevated white blood cell count; Pressure ulcer of buttock; Unspecified combined systolic (congestive) and diastolic (congestive) heart failure. Bed requested for Telemetry/MedSurg (Inpatient). Status is Inpatient Admission. Condition is Fair. Problem is new. Symptoms have improved. UTI on Admission? No. julian 15:09 13:38 04/03/2018 11:35 Hospitalization Ordered by Lolita Wayne MD for Inpatient ca1 Admission. Preliminary diagnosis is Gastrointestinal hemorrhage, unspecified - upper; Weakness; Anemia, unspecified; Elevated white blood cell count; Pressure ulcer of buttock; Unspecified combined systolic (congestive) and diastolic (congestive) heart failure. Bed requested for Telemetry/MedSurg (Inpatient). Status is Inpatient Admission. Condition is Fair. Problem is new. Symptoms have improved. UTI on Admission? No. bd
[2018-04-03] MEDS ORDERED: PANTOPRAZOLE 40 MG INJ ONE (11:41)
[2018-04-03] MEDS ORDERED: PANTOPRAZOLE INJ 80 MG in NA CHLORIDE 0.9% 250 ML IV ONE (11:45)
[2018-04-03 12:10] LABS: Absolute Lymphocytes (CBC) 4.6 K/uL (0.7-4.9); Absolute Neutrophil 8.7 K/uL (1.8-8.0); Basophils % 0.6 % (0-1.3); Eosinophils % 0.9 % (0-4.4); Lymphocytes % 31.8 % (15.3-44.8); MPV 8.7 fL (7.6-11.3); Monocytes % 7.1 % (3.3-12.3); RBC Red Blood Cell Count 2.98 M/uL (4.33-5.43)
--- NOTE | 2018-04-03 12:23 | RAD REPORT ---
EXAM DESCRIPTION: RAD - Chest Single View - 04/03/2018 12:11 pm CLINICAL HISTORY: COUGH Chest pain. COMPARISON: Chest Single View dated 08/07/2015; CHEST PA AND LAT 2 VIEW dated 06/12/2014; CHEST SINGLE V IEW dated 01/16/2014; CHEST SINGLE VIEW dated 01/16/2014 FINDINGS: Portable technique limits examination quality. Mild interstitial pulmonary edema is present. Trace pleural fluid is present bilaterally. The heart i s moderately enlarged in size. No displaced fractures. IMPRESSION: Mild to moderate CHF versus volume overload pattern.
[2018-04-03 12:38] LABS: Protime INR 1.23
[2018-04-03] MEDS ORDERED: ONDANSETRON 4 MG/2 ML VIAL ONE (12:53)
[2018-04-03] MEDS ORDERED: FENTANYL CITR 100 MCG/2 ML ONE (12:53)
[2018-04-03] MEDS ORDERED: FUROSEMIDE 40 MG/4 ML VIAL ONE (12:53)
[2018-04-03 12:54] LABS: Albumin 2.6 g/dL (3.4-5.0); Bilirubin Direct 0.1 mg/dL (0-0.2); Bilirubin Total 0.3 mg/dL (0.2-1.0); Magnesium 1.8 mg/dL (1.8-2.4); Potassium 4.5 mmol/L (3.5-5.1); Protein, Total 6.5 g/dL (6.4-8.2)
[2018-04-03 13:00] LABS: Troponin (Emerg Dept Use Only) 0.76 ng/mL (0.0-0.045)
[2018-04-03] MEDS ORDERED: CEFEPIME/SWI 1gm 1 GM/10 ML SYR IV ONE (13:15)
[2018-04-03] MEDS ORDERED: VANCOMYCIN 1 GM/250 ML BAG ONE (14:32)
[2018-04-03] MEDS ORDERED: ACETAMINOPHEN 500 MG TAB PO PRN (15:39)
[2018-04-03] MEDS ORDERED: ONDANSETRON 4 MG/2 ML VIAL IV PRN (15:39)
[2018-04-03] MEDS ORDERED: NA CHLORIDE 0.9% 1,000 ML IV SCH (15:39)
[2018-04-03 15:56] VITALS: O2SAT 97; BMI 32.5
[2018-04-03] MEDS ORDERED: INFLUENZA VACCINE (for 3y+) 0.5 ML DOSE IMVAC ONE (16:00)
[2018-04-03 16:18] VITALS: TEMP 98.2
[2018-04-03 16:25] VITALS: BP 121/58
--- NOTE | 2018-04-03 17:30 | P.SSS ---
Patient History Date of Service: 04/03/18 History of Present Illness: 67-year-old male with significant past medical history of diabetes PAD PVD hypertension hyperlipidemia who presented to the ED complaining of having generalized weakness. Was seen by primary care doctor's office had lab work done which was consistent with hemoglobin of 7.8 thus was sent over to the hospital for further workup. Patient stated that he has been just feeling dizzy for past couple of days and has noted that he had this redness in his rectal area for past couple of days as well. No fever chills noted at the house. Aside from dizziness no other complaints to offer. In the ER patient was found to have hemoglobin of 8.4 along with rectal cellulitis. Patient was admitted to the hospital for observation. And GI consultation GI saw the patient here in the hospital and agreed with discharge home with outpatient workup along with oral antibiotics for perirectal cellulitis Allergies codeine Allergy (Mild, Verified 04/03/18 15:43) Nausea/Vomiting Home Medications: Alprazolam 1 mg PO BEDTIME 01/15/14 Clopidogrel Bisulfate [Clopidogrel] 75 mg PO DAILY 01/15/14 Glimepiride 4 mg PO BID 01/15/14 Metformin HCl 1 mg PO BID 01/15/14 Simvastatin 20 mg PO BEDTIME 01/15/14 Amlodipine [Norvasc*] 10 mg PO DAILY 10/25/15 Lisinopril/Hydrochlorothiazide [Zestoretic 20-25 mg Tablet] 1 each PO DAILY Clindamycin HCl 300 mg PO DAILY #10 capsule 04/03/18 - Past Medical/Surgical History Has patient received pneumonia vaccine in the past: No Diabetic: Yes -: Diabetes -: htn -: cholesterol -: anxiety -: arthritis lower back -: carotid artery stent -: knee sx -: right great toe amputation 09/30/15 -: left 2nd toe amputation -: right 4th toe amputation - Family History Mother -: Diabetes Father -: Other (see notes) Notes: heart failure - Social History Smoking Status: Former smoker Alcohol use: Yes CD- Drugs: No Caffeine use: Yes Place of Residence: Home Review of Systems 10-point ROS is otherwise unremarkable Physical Examination - Vital Signs Temperature: 98.2 F Blood Pressure: 121/58 Pulse: 74 Respirations: 19 - Physical Exam General: Alert, In no apparent distress HEENT: Atraumatic, PERRLA, Mucous membr. moist/pink, EOMI, Sclerae nonicteric Neck: Supple, 2+ carotid pulse no bruit, No LAD, Without JVD or thyroid abnormality Respiratory: Clear to auscultation bilaterally, Normal air movement Cardiovascular: Regular rate/rhythm, Normal S1 S2 Gastrointestinal: Normal bowel sounds, No tenderness Musculoskeletal: No tenderness Integumentary: Skin breakdown Neurological: Normal speech, Normal strength at 5/5 x4 extr, Normal tone Lymphatics: No axilla or inguinal lymphadenopathy - Studies Laboratory Data (last 24 hrs) 04/03/18 11:15: PT 14.6 H, INR 1.23 04/03/18 11:15: WBC 14.5 H, Hgb 8.3 L, Hct 26.0 L, Plt Count 467 H 04/03/18 11:15: Sodium 144, Potassium 4.5, BUN 16, Creatinine 1.13, Glucose 89, Magnesium 1.8, Total Bilirubin 0.3, AST 13 L, ALT 21, Alkaline Phosphatase 90, Lipase 134 Microbiology Data (last 24 hrs): 04/03/18 11:12 Stool Occult Blood - Final - Diagnosis (Problem(s)) (1) Anemia Current Visit: Yes Status: Acute Plan: Acute anemia most likely secondary to iron deficiency versus acute blood -hemoglobin the PCPs office 7.8 hemoglobin here in the hospital in 8.4. -GI consultants recommended outpatient EGD and colonoscopy -patient remained stable while here in the hospital negative for hematemesis for stool occult blood -Dc home to follow up with PCP in about 1-2 days post discharge and GI in about 1-2 days post discharge to schedule for a EGD and colonoscopy. (2) Rectal cellulitis Current Visit: Yes Status: Acute Plan: rectal cellulitis wound cultures pending at this time. Will discharge home on clindamycin followup with wound cultures post discharge by PCP (3) Diabetes mellitus Current Visit: No Status: Chronic Qualifiers: Diabetes mellitus type: type 2 Diabetes mellitus termite exterminator insulin use: without termite exterminator use Diabetes mellitus complication status: without complication Qualified Code(s): E11.9 - Type 2 diabetes mellitus without complications (4) Hyperlipidemia Onset Date: 01/16/14 Current Visit: No Status: Chronic Qualifiers: Hyperlipidemia type: unspecified Qualified Code(s): E78.5 - Hyperlipidemia , unspecified (5) Hypertension Onset Date: 01/16/14 Current Visit: No Status: Chronic Qualifiers: Hypertension type: essential hypertension (6) Obesity (BMI 30.0-34.9) Current Visit: No Status: Chronic (7) PAD (peripheral artery disease) Current Visit: No Status: Chronic (8) PVD (peripheral vascular disease) Onset Date: 10/27/15 Current Visit: No Status: Chronic - Disposition Disposition: ROUTINE DISCHARGE Condition: GOOD Diet: Regular Activity: Ad denisse
--- NOTE | 2018-04-03 20:51 | EKG ---
Test Date: 2018-04-03 Test Time: 11:01:57 Headwaiter/Headwaitress: SHAW MEASUREMENT RESULTS: Intervals: Rate: 75 WI: 166 QRSD: 118 QT: 412 QTc: 460 [place]: P: 26 WI: 166 QRS: 70 T: -79 INTERPRETIVE STATEMENTS: Normal sinus rhythm Low voltage QRS Cannot rule out Anterior infarct, age undetermined ST & T wave abnormality, consider lateral ischemia Abnormal ECG Compared to ECG 03/22/2018 18:13:49 Low QRS voltage now present Myocardial infarct finding now present Left-axis deviation no longer present Prolonged QT interval no longer present ST (T wave) deviation still present Possible ischemia still present Electronically Signed On 04-03-18 20:48:02 HERBARIUM CURATOR by Ralph Ya
== END 2018-04-03 19:39 | disposition home or self-care (01) ==
LOC: ER 10:32 → ERHOLD 13:01 → 2ND 14:57
PROVIDERS: ADMIT Family Medicine; ATTEND Family Medicine
DX: D64.9 Anemia, unspecified (principal); K61.1 Rectal abscess; E11.9 Type 2 diabetes mellitus without complications; E78.5 Hyperlipidemia, unspecified; I10 Essential (primary) hypertension; I73.9 Peripheral vascular disease, unspecified; Z89.411 Acquired absence of right great toe; Z89.422 Acquired absence of other left toe(s); Z89.421 Acquired absence of other right toe(s); Z87.891 Personal history of nicotine dependence; E66.9 Obesity, unspecified; Z68.32 Body mass index [BMI] 32.0-32.9, adult
CPT/HCPCS: 36415; 71045; 80048; 80076; 82272; 83605 ×2; 83690; 83735; 83880; 84145; 84484; 85025; 85576 ×2; 85610; 86850; 86870; 86900; 86901; 86922 ×2; 87040 ×2; 87070; 87077 ×2; 87186 ×2; 87205 ×2; 93005; 96365; 96367; 96375; 99285; C9113 ×2; G0378 ×2; J0692; J1940; J2405; J3010; J3370; J7030

== ENCOUNTER 2018-08-30 16:38 | Inpatient (IN) | payer OTHER ==
[2018-08-30 18:23] LABS: Absolute Lymphocytes (CBC) 0.8 K/uL (0.7-4.9); Basophils % 0.7 % (0-1.3); Eosinophils % 0.3 % (0-4.4); Hematocrit 34.3 % (39.6-49.0); Lymphocytes % 7.8 % (15.3-44.8); MPV 8.6 fL (7.6-11.3); Monocytes % 13.6 % (3.3-12.3); RBC Red Blood Cell Count 4.54 M/uL (4.33-5.43)
[2018-08-30] MEDS ORDERED: FENTANYL CITR 100 MCG/2 ML ONE (18:25)
[2018-08-30] MEDS ORDERED: ACETAMINOPHEN 500 MG TAB ONE (18:26)
[2018-08-30] MEDS ORDERED: CLINDAMYCIN 600MG/D5W 600 MG/50 ML BAG IV ONE (18:26)
[2018-08-30] MEDS ORDERED: ONDANSETRON 4 MG/2 ML VIAL ONE (18:26)
--- NOTE | 2018-08-30 18:40 | P.HP ---
Certification for Inpatient Patient admitted to: Inpatient With expected LOS: >2 Midnights Patient will require the following post-hospital care: None Practitioner: I am a practitioner with admitting privileges, knowledge of patient current condition, hospital course, and medical plan of care. Services: Services provided to patient in accordance with Admission requirements found in Title 42 Section 412.3 of the Code of Federal Regulations Patient History Date of Service: 08/30/18 Primary Care Provider: Dr. Yoon; Surgery-Dr. Montanez Reason for admission: Left foot cellulitis History of Present Illness: 67-year-old male presented to the emergency room with worsening left foot cellulitis. [facility]. Patient seen yesterday for chronic left lateral 5th metatarsal region ulcer at the clinic. It was debrided by surgery. Patient was placed on antibiotic therapy. He was told that if he had more pain, erythema and swelling that he would require hospital admission for IV antibiotic therapy. This morning he noted increasing fever, pain to the region. Increased swelling and erythema noted. Patient has prior amputations to several toes bilaterally. In the ER patient evaluated. CBC, BMP and x-ray pending at this time. Due to worsening symptoms and possible underlying gangrene patient was admitted for IV treatment. Case was discussed with surgery by the ER physician. Patient placed on antibiotic therapy. When I saw the patient ER, he appeared stable. Patient with underlying diabetes , hypertension, peripheral vascular disease. 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 Chemotherapy currently on hold due to chronic wound. Allergies codeine Allergy (Mild, Verified 04/03/18 15:43) Nausea/Vomiting Home medications list reviewed: Yes Home Medications: Alprazolam 1 mg PO BEDTIME 01/15/14 Clopidogrel Bisulfate [Clopidogrel] 75 mg PO DAILY 01/15/14 Glimepiride 4 mg PO DAILY 01/15/14 Metformin HCl 1 mg PO DAILY 01/15/14 Carvedilol [Coreg] 6.25 mg PO BID 08/30/18 Hydrocodone 10/APAP 325 [[place] 10/325] 1 tab PO SEECOM PRN 08/30/18 Methadone HCl [Dolophine] 10 mg PO DIRECTED PRN 08/30/18 Metolazone [Zaroxolyn] 2.5 mg PO SEECOM 08/30/18 PARoxetine HCl [Paxil] 20 mg PO DAILY 08/30/18 Pantoprazole [Protonix Tab] 40 mg PO BID 08/30/18 Torsemide [Demadex] 20 mg PO DAILY 08/30/18 - Past Medical/Surgical History Diabetic: Yes -: Diabetes mellitus type 2, [id number] -: Squamous cell head/neck cancer -: Hypertension -: Hyperlipidemia -: GERD -: Peripheral vascular disease -: Carotid arterial disease -: carotid artery stent -: knee sx -: right great toe amputation 09/30/15 -: left 2nd toe amputation -: right 4th toe amputation Psychosocial/ Personal History: Patient is - Family History Family History: Reviewed- Non-Contributory - Family History Mother -: Diabetes Father -: Other (see notes) Notes: heart failure - Social History Smoking Status: Former smoker Alcohol use: No CD- Drugs: No Caffeine use: Yes Place of Residence: Home Review of Systems General: Fever, Chills, As per HPI Eyes: Unremarkable ENT: Unremarkable Respiratory: Unremarkable Cardiovascular: Unremarkable Gastrointestinal: Unremarkable Genitourinary: Unremarkable Musculoskeletal: Pedal edema, As per HPI Integumentary: As per HPI Neurological: Unremarkable Lymphatics: Unremarkable Physical Examination - Physical Exam General: Alert, In no apparent distress, Oriented x3, Cooperative HEENT: Atraumatic, Normocephalic, PERRLA, Mucous membr. moist/pink Neck: Supple Respiratory: Clear to auscultation bilaterally, Normal air movement Cardiovascular: Normal pulses, Regular rate/rhythm Gastrointestinal: Normal bowel sounds, Soft and benign, Non-distended, No tenderness, No masses, No rebound, No guarding Musculoskeletal: Other (Pain to the left foot noted.) Integumentary: Other (Erythema, swelling noted to the left 5th digit and metatarsal region. Ulcer noted to the distal metatarsal region. Area around the size of a quarter.) Neurological: Normal speech, Normal strength at 5/5 x4 extr, Normal tone, Normal affect Assessment and Plan - Plan Impression: Left foot cellulitis with diabetic foot ulcer to the 5th metatarsal region likely gangrene with possible osteomyelitis Diabetes mellitus type 2, non-insulin dependent Hypertension Peripheral vascular disease Carotid arterial disease GERD Plan: Patient will be admitted for IV antibiotic treatment. Will start cefepime and vancomycin. Blood cultures to be obtained. Patient will have x-ray and MRI of the lower extremity to further evaluate. Patient had recent vascular study done at [facility]. He reports severe PVD. Will get results of this. Surgery is aware of the patient. Patient may require surgical intervention. Await further recommendation. Will monitor Accu-Cheks. Will provide sliding scale. Will restart blood pressure medication. Will start DVT prophylaxis- Lovenox. Will continue with Plavix. Will continue to reassess. Will provide medication for pain. Discharge Plan: Home Plan to discharge in: Greater than 2 days - Advance Directives Does patient have a Living Will: No Does patient have a Durable POA for Healthcare: No - Code Status/Comfort Care Code Status Assessed: Yes (Patient is full code) Time Spent Managing Pts Care (In Minutes): 55
[2018-08-30 18:43] LABS: Potassium 3.7 mmol/L (3.5-5.1)
--- NOTE | 2018-08-30 18:43 | RAD REPORT ---
EXAM DESCRIPTION: RAD - Foot Left 3 View - 08/30/2018 6:32 pm CLINICAL HISTORY: Left Foot pain FINDINGS: Ulceration involves the soft tissue of the lateral forefoot. Air within the soft tissues m ay be related to the ulceration or infection. No bony destructive lesion is seen. Amputation involves second phalanx Large plantar calcaneal spur
--- NOTE | 2018-08-30 18:46 | EDPHYS ---
Physician Documentation [facility] Name: Brando Pizarro Age: 67 yrs Sex: Male : 1950 Arrival Date: 08/30/2018 Time: 16:40 Bed 30 Private MD: Nathen Yoon E; Sinha, Anil ED Physician Bebo Sheth HPI: 08/30 17:51 This 67 yrs old Male presents to ER via Wheelchair with complaints of Wound jr8 Check. 17:51 Patient presents to ED for recheck of: cellulitis. The affected area is on the left jr8 foot. Previous treatment: Previous recheck: the patient's last recheck was 1 day(s) ago. Progress: The patient reports increased fever, pain, redness. The patient has experienced similar episodes in the past, a few times. The patient has been recently seen by a physician:. Patient has been undergoing treatment for chronic left foot wound. Stated that surgeon started to noticed beginning of gangrene. Started running fever today and told to come to ED . Historical: - Allergies: 16:46 Codeine; aj - Home Meds: 17:13 alprazolam 1 mg Oral tab as needed [Active]; carvedilol 6.25 mg oral tab 1 tab every 12 ca1 hours [Active]; pantoprazole 40 mg oral TbEC 1 tab 2 times per day [Active]; spironolactone 50 mg Oral tab 1 tab once daily [Active]; torsemide 20 mg oral tab 1 tab once daily [Active]; clopidogrel 75 mg oral tab 1 tab once daily [Active]; glimepiride 4 mg oral tab 1 tab once daily [Active]; metformin 1,000 mg oral tab 1 tab daily [Active]; metolazone 2.5 mg oral tab 1 tab Twice a week, Tuesday and Tuesday AM [Active]; methadone 10 mg Oral tab as needed [Active]; hydrocodone-acetaminophen 10-325 mg Oral tab as needed [Active]; paroxetine HCl 20 mg oral tab 1 tab as needed [Active]; Senokot S Oral [Active]; Centrum Silver oral oral [Active]; magnesium oxide 500 mg Oral cap [Active]; 17:16 Cipro 500 mg Oral tab 1 tab every 12 hours [Active]; doxycycline hyclate 100 mg Oral ca1 tab 1 tab every 12 hours [Active]; - PMHx: 17:13 Anxiety; brain cancer; Cancer; Chronic pain; Diabetes - NIDDM; Hypertension; neuropathy;ca1 - PSHx: 17:13 toe amputation; L shoulder repair; ca1 - Immunization history:: Last tetanus immunization: up to date Flu vaccine is not up to date. - Social history:: Smoking status: Patient/guardian denies using tobacco, the patient reports quitting approximately 4 years ago. - Ebola Screening: : Patient negative for fever greater than or equal to 101.5 degrees Fahrenheit, and additional compatible Ebola Virus Disease symptoms Patient denies exposure to infectious person Patient denies travel to an Ebola-affected area in the 21 days before illness onset. ROS: 17:59 Eyes: Negative for injury, pain, redness, and discharge, ENT: Negative for injury, jr8 pain, and discharge, Neck: Negative for injury, pain, and swelling, Cardiovascular: Negative for chest pain, palpitations, and edema, Respiratory: Negative for shortness of breath, cough, wheezing, and pleuritic chest pain, Abdomen/GI: Negative for abdominal pain, nausea, vomiting, diarrhea, and constipation, Back: Negative for injury and pain, MS/Extremity: Negative for injury and deformity, Neuro: Negative for headache, weakness, numbness, tingling, and seizure. 17:59 Skin: Positive for erythema, ulceration, of the left foot. Exam: 17:59 Eyes: Pupils equal round and reactive to light, extra-ocular motions intact. Lids and jr8 lashes normal. Conjunctiva and sclera are non-icteric and not injected. Cornea within normal limits. Periorbital areas with no swelling, redness, or edema. ENT: Nares patent. No nasal discharge, no septal abnormalities noted. Tympanic membranes are normal and external auditory canals are clear. Oropharynx with no redness, swelling, or masses, exudates, or evidence of obstruction, uvula midline. Mucous membranes moist. Neck: Trachea midline, no thyromegaly or masses palpated, and no cervical lymphadenopathy. Supple, full range of motion without nuchal rigidity, or vertebral point tenderness. No Meningismus. Cardiovascular: Regular rate and rhythm with a normal S1 and S2. No gallops, murmurs, or rubs. Normal PMI, no JVD. No pulse deficits. Respiratory: Lungs have equal breath sounds bilaterally, clear to auscultation and percussion. No rales, rhonchi or wheezes noted. No increased work of breathing, no retractions or nasal flaring. Abdomen/GI: Soft, non-tender, with normal bowel sounds. No distension or tympany. No guarding or rebound. No evidence of tenderness throughout. Back: No spinal tenderness. No costovertebral tenderness. Full range of motion. MS/ Extremity: Pulses equal, no cyanosis. Neurovascular intact. Full, normal range of motion. Neuro: Awake and alert, GCS 15, oriented to person, place, time, and situation. Cranial nerves II-XII grossly intact. Motor strength 5/5 in all extremities. Sensory grossly intact. Cerebellar exam normal. Normal gait. 17:59 Skin: Patient has foul smelling open wound to lateral left foot. Previous amputations noted. Mild erythema surrounds the wound . Vital Signs: 16:46 BP 121 / 57; Pulse 82; Resp 19; Temp 100.8; Pulse Ox 97% on R/A; Weight 92.99 kg; aj Height 6 ft. 0 in. (182.88 cm); 17:15 BP 118 / 54; Pulse 68; Resp 16 S; Pulse Ox 98% on R/A; ca1 18:21 BP 118 / 52; Pulse 67; Resp 18 S; Temp 99.1(O); Pulse Ox 98% on R/A; ca1 19:32 BP 116 / 62; Pulse 61; Resp 17 S; Temp 99(O); Pulse Ox 98% on R/A; ca1 20:42 BP 113 / 63; Pulse 62; Resp 19 S; Temp 98.9(O); Pulse Ox 99% on R/A; ca1 16:46 Body Mass Index 27.80 (92.99 kg, 182.88 cm) aj MDM: 17:18 Patient medically screened. 8 18:01 Data reviewed: vital signs, nurses notes, lab test result(s), radiologic studies, plain jr8 films. Data interpreted: Pulse oximetry: on room air is 97 %. Interpretation: normal. 18:44 Counseling: I had a detailed discussion with the patient and/or guardian regarding: the jr8 historical points, exam findings, and any diagnostic results supporting the discharge/admit diagnosis, lab results, radiology results, the need for further work-up and treatment in the hospital. ED course: Dr. Montanez consulted and wants patient admitted to medicine and will see patient in the AM . 08/30 17:40 Order name: CBC with Diff; Complete Time: 18:45 8 08/30 17:40 Order name: Basic Metabolic Panel; Complete Time: 18:45 8 08/30 17:40 Order name: Blood Culture Adult (2) 8 08/30 17:59 Order name: XRAY Foot LEFT 3 View; Complete Time: 18:45 8 08/30 17:40 Order name: IV; Complete Time: 18:10 jr8 Administered Medications: 18:30 Drug: Tylenol 1000 mg Route: PO; ca1 21:05 Follow up: Response: No adverse reaction; Pain is decreased ca1 19:00 Drug: vancoMYCIN 1 grams Route: IVPB; Infused Over: 2 hrs; Site: left antecubital; ca1 19:52 Follow up: Response: No adverse reaction; IV Status: Infusion continued upon admission ca1 20:43 Follow up: IV Status: Infusion continued upon admission ca1 21:04 Follow up: IV Status: Completed infusion ca1 19:00 Drug: NS 0.9% 1000 ml Route: IV; Rate: 75 ml/hr; Site: left antecubital; ca1 19:52 Follow up: IV Status: Infusion continued upon admission ca1 20:43 Follow up: IV Status: Infusion continued upon admission ca1 19:01 Not Given (Patient Refused): fentaNYL (PF) 50 mcg IVP once ca1 19:01 Not Given (Patient Refused): Zofran 4 mg IVP once; over 2 minutes ca1 21:04 Drug: Clindamycin 600 mg Route: IVPB; Infused Over: 30 mins; Site: left antecubital; ca1 21:04 Follow up: IV Status: Infusion continued upon admission ca1 Disposition: 08/31 10:24 Co-signature as Attending Physician, Bebo Sheth MD I agree with the assessment and kdr plan of care. Disposition: 08/30/18 18:45 Hospitalization ordered by Guero Akbar for Inpatient Admission. Preliminary diagnosis are Unspecified open wound, left foot, Cellulitis of left lower limb. - Bed requested for Telemetry/MedSurg (Inpatient). - Status is Inpatient Admission. fc - Condition is Stable. - Problem is new. - Symptoms are unchanged. UTI on Admission? No Signatures: Dispatcher [employer] EDMS Swathi Henry, RN RN Bebo Sheth MD MD [facility] Marina Vargas RN RN Matty Vuong PA PA jr8 Evelin Garcia RN RN Radha Welch RN RN ca1 Corrections: (The following items were deleted from the chart) 08/30 19:12 18:45 Hospitalization Ordered by Guero Akbar DO for Inpatient Admission. Preliminary diagnosis is Unspecified open wound, left foot; Cellulitis of left lower limb. Bed requested for Telemetry/MedSurg (Inpatient). Status is Inpatient Admission. Condition is Stable. Problem is new. Symptoms are unchanged. UTI on Admission? No. jr8 21:27 19:12 08/30/2018 18:45 Hospitalization Ordered by Guero Akbar DO for Inpatient Admission. Preliminary diagnosis is Unspecified open wound, left foot; Cellulitis of left lower limb. Bed requested for Telemetry/MedSurg (Inpatient). Status is Inpatient Admission. Condition is Stable. Problem is new. Symptoms are unchanged. UTI on Admission? No. cg
--- NOTE | 2018-08-30 18:46 | ER ---
Nurse's Notes [facility] Name: Brando Pizarro Age: 67 yrs Sex: Male : 1950 Arrival Date: 08/30/2018 Time: 16:40 Bed 30 Private MD: Nathen Yoon E; Rudy Montanez Diagnosis: Unspecified open wound, left foot;Cellulitis of left lower limb Presentation: 08/30 16:45 Presenting complaint: Patient states: Wound to right foot for 1 month that is getting aj worse, reports fever. Care prior to arrival: None. 16:45 Acuity: YUMIKO 3 aj 17:03 Transition of care: patient was not received from another setting of care. Onset of ca1 symptoms was August 30, 2018 at 13:00. Risk Assessment: Do you want to hurt yourself or someone else? Patient reports no desire to harm self or others. Initial Sepsis Screen: Does the patient meet any 2 criteria? No. Patient's initial sepsis screen is negative. Does the patient have a suspected source of infection? No. Patient's initial sepsis screen is negative. 17:03 Method Of Arrival: Wheelchair ca1 Triage Assessment: 16:46 General: Appears in no apparent distress. comfortable, Behavior is calm, cooperative, aj appropriate for age. Pain: Complains of pain in left foot. Respiratory: Airway is patent Respiratory effort is even, unlabored, Respiratory pattern is regular, symmetrical. Derm: Skin is intact, is healthy with good turgor, Skin is pink, warm \T\ dry. normal, Wound noted left foot Wound is patient reports purulent drainage which has increased to left foot wound. Historical: - Allergies: 16:46 Codeine; aj - Home Meds: 17:13 alprazolam 1 mg Oral tab as needed [Active]; carvedilol 6.25 mg oral tab 1 tab every 12 ca1 hours [Active]; pantoprazole 40 mg oral TbEC 1 tab 2 times per day [Active]; spironolactone 50 mg Oral tab 1 tab once daily [Active]; torsemide 20 mg oral tab 1 tab once daily [Active]; clopidogrel 75 mg oral tab 1 tab once daily [Active]; glimepiride 4 mg oral tab 1 tab once daily [Active]; metformin 1,000 mg oral tab 1 tab daily [Active]; metolazone 2.5 mg oral tab 1 tab Twice a week, Tuesday and Tuesday AM [Active]; methadone 10 mg Oral tab as needed [Active]; hydrocodone-acetaminophen 10-325 mg Oral tab as needed [Active]; paroxetine HCl 20 mg oral tab 1 tab as needed [Active]; Senokot S Oral [Active]; Centrum Silver oral oral [Active]; magnesium oxide 500 mg Oral cap [Active]; 17:16 Cipro 500 mg Oral tab 1 tab every 12 hours [Active]; doxycycline hyclate 100 mg Oral ca1 tab 1 tab every 12 hours [Active]; - PMHx: 17:13 Anxiety; brain cancer; Cancer; Chronic pain; Diabetes - NIDDM; Hypertension; neuropathy;ca1 - PSHx: 17:13 toe amputation; L shoulder repair; ca1 - Immunization history:: Last tetanus immunization: up to date Flu vaccine is not up to date. - Social history:: Smoking status: Patient/guardian denies using tobacco, the patient reports quitting approximately 4 years ago. - Ebola Screening: : Patient negative for fever greater than or equal to 101.5 degrees Fahrenheit, and additional compatible Ebola Virus Disease symptoms Patient denies exposure to infectious person Patient denies travel to an Ebola-affected area in the 21 days before illness onset. Screenin:02 Abuse screen: Denies threats or abuse. Denies injuries from another. Nutritional ca1 screening: No deficits noted. Tuberculosis screening: No symptoms or risk factors identified. Fall Risk Fall in past 12 months (25 points). Ambulatory Aid- Crutches/Cane/Walker (15 pts). Assessment: 17:02 General: Appears in no apparent distress. comfortable, Behavior is calm, cooperative, ca1 appropriate for age. General: Reports fever for 0-12 hours. Pain: Complains of pain in left foot Pain currently is 9 out of 10 on a pain scale. Pain began 1 day ago. Neuro: Level of Consciousness is awake, alert, obeys commands, Oriented to person, place, time, situation. Cardiovascular: Heart tones S1 S2 present Capillary refill < 3 seconds Patient's skin is warm and dry. Respiratory: Airway is patent Respiratory effort is even, unlabored, Respiratory pattern is regular, symmetrical, Breath sounds are clear bilaterally. GI: Abdomen is flat, non-distended, Bowel sounds present X 4 quads. Abd is soft and non tender X 4 quads. : No deficits noted. No signs and/or symptoms were reported regarding the genitourinary system. EENT: No deficits noted. No signs and/or symptoms were reported regarding the EENT system. Derm: Skin is healthy with good turgor, Skin is pink, warm \T\ dry. Wound noted ball of left foot. Musculoskeletal: Circulation, motion, and sensation intact. Capillary refill < 3 seconds, Range of motion: intact in all extremities. 18:15 Reassessment: Dr. Akbar at bedside. ca1 18:15 Reassessment: Patient appears in no apparent distress at this time. Patient and/or ca1 family updated on plan of care and expected duration. Pain level reassessed. Patient is alert, oriented x 3, equal unlabored respirations, skin warm/dry/pink. 19:03 Reassessment: Patient appears in no apparent distress at this time. Patient is alert, ca1 oriented x 3, equal unlabored respirations, skin warm/dry/pink. Pt eating dinner with significant other. 19:49 Reassessment: Patient appears in no apparent distress at this time. Patient is alert, ca1 oriented x 3, equal unlabored respirations, skin warm/dry/pink. 19:49 Reassessment: Called for report. ER nurse has to hang phone to give report to EMS for ca1 another pt. 20:35 Reassessment: Patient appears in no apparent distress at this time. Patient and/or ca1 family updated on plan of care and expected duration. Pain level reassessed. Patient is alert, oriented x 3, equal unlabored respirations, skin warm/dry/pink. Dressing 4x4 and kerlix on affected leg. Vital Signs: 16:46 BP 121 / 57; Pulse 82; Resp 19; Temp 100.8; Pulse Ox 97% on R/A; Weight 92.99 kg; aj Height 6 ft. 0 in. (182.88 cm); 17:15 BP 118 / 54; Pulse 68; Resp 16 S; Pulse Ox 98% on R/A; ca1 18:21 BP 118 / 52; Pulse 67; Resp 18 S; Temp 99.1(O); Pulse Ox 98% on R/A; ca1 19:32 BP 116 / 62; Pulse 61; Resp 17 S; Temp 99(O); Pulse Ox 98% on R/A; ca1 20:42 BP 113 / 63; Pulse 62; Resp 19 S; Temp 98.9(O); Pulse Ox 99% on R/A; ca1 16:46 Body Mass Index 27.80 (92.99 kg, 182.88 cm) aj ED Course: 16:40 Patient arrived in ED. as 16:40 Nathen Yoon MD is Private Physician. as 16:40 Rudy Montanez MD is Private Physician. as 16:45 Triage completed. aj 16:46 Arm band placed on left wrist. Patient placed in an exam room. aj 16:48 Radha Welch, JYOTHI is Primary Nurse. ca1 17:02 Patient has correct armband on for positive identification. Bed in low position. Call ca1 light in reach. Side rails up X 1. Pulse ox on. NIBP on. Door closed. Lights dimmed. 17:18 Matty Vuong PA is PHCP. jr8 17:18 Bebo Sheth MD is Attending Physician. jr8 18:05 Initial lab(s) drawn, by ar, sent to lab. First set of blood cultures drawn by me. lt1 18:09 Inserted saline lock: 20 gauge in left antecubital area, using aseptic technique. lt1 18:10 Basic Metabolic Panel Sent. lt1 18:10 CBC with Diff Sent. lt1 18:31 XRAY Foot LEFT 3 View In Process Unspecified. EDMS 18:39 Second set of blood cultures drawn by ar. lt1 18:42 Blood Culture Adult (2) Sent. lt1 18:44 Guero Akbar DO is Hospitalizing Provider. jr8 19:50 No provider procedures requiring assistance completed. Patient admitted, IV remains in ca1 place. Administered Medications: 18:30 Drug: Tylenol 1000 mg Route: PO; ca1 21:05 Follow up: Response: No adverse reaction; Pain is decreased ca1 19:00 Drug: vancoMYCIN 1 grams Route: IVPB; Infused Over: 2 hrs; Site: left antecubital; ca1 19:52 Follow up: Response: No adverse reaction; IV Status: Infusion continued upon admission ca1 20:43 Follow up: IV Status: Infusion continued upon admission ca1 21:04 Follow up: IV Status: Completed infusion ca1 19:00 Drug: NS 0.9% 1000 ml Route: IV; Rate: 75 ml/hr; Site: left antecubital; ca1 19:52 Follow up: IV Status: Infusion continued upon admission ca1 20:43 Follow up: IV Status: Infusion continued upon admission ca1 19:01 Not Given (Patient Refused): fentaNYL (PF) 50 mcg IVP once ca1 19:01 Not Given (Patient Refused): Zofran 4 mg IVP once; over 2 minutes ca1 21:04 Drug: Clindamycin 600 mg Route: IVPB; Infused Over: 30 mins; Site: left antecubital; ca1 21:04 Follow up: IV Status: Infusion continued upon admission ca1 Outcome: 18:45 Decision to Hospitalize by Provider. jrSonya 20:41 Admitted to Tele accompanied by tech, via wheelchair, room 409, with chart, Report ca1 called to Cristina Pratt RN 20:41 Condition: stable 20:41 Instructed on the need for admit. 21:27 Patient left the ED. fc Signatures: Dispatcher [employer] Swathi Tariq RN RN aj Chretien, Felicia, RN RN Eulalia Douglas Josh, PA PA jr8 Radha Welch RN RN ca1 Sabrina Scruggs lt1 Corrections: (The following items were deleted from the chart) 19:51 19:32 BP 116 / 62; Pulse 58bpm; Resp 17bpm; Spontaneous; Pulse Ox 98% RA; Temp 99F ca1 Oral; ca1 20:37 17:02 Derm: Skin is intact, is healthy with good turgor, Skin is pink, warm \T\ dry. ca1 ca1
[2018-08-30] MEDS ORDERED: VANCOMYCIN 1.75 GM in NA CHLORIDE 0.9% 500 ML IVPB SCH (19:00)
[2018-08-30] MEDS ORDERED: NA CHLORIDE 0.9% 1,000 ML ONE (19:04)
[2018-08-30] MEDS: INSULIN -REGULAR HUMAN 50 UNIT/0.5 ML ML SQ SCH (21:30)
[2018-08-30] MEDS ORDERED: TRAMADOL HCL 50 MG TAB PO PRN (21:30)
[2018-08-30] MEDS ORDERED: CEFEPIME 1 GM/VIAL IV SCH (21:30)
[2018-08-30] MEDS ORDERED: ONDANSETRON 4 MG/2 ML VIAL IV PRN (21:30)
[2018-08-30] MEDS ORDERED: ACETAMINOPHEN 500 MG TAB PO PRN (21:30)
[2018-08-30] MEDS ORDERED: VANCOMYCIN 1 GM/VIAL ONE (22:15)
[2018-08-30] MEDS ORDERED: NA CHLORIDE 0.9% 500 ML ONE (22:22)
[2018-08-30] MEDS: MORPHINE 2 MG/ML SYR IV PRN (22:23)
[2018-08-30] MEDS ORDERED: CEFEPIME 1 GM/100 ML BAG IV ONE (22:30)
[2018-08-30] MEDS: VANCOMYCIN 1.75 GM in NA CHLORIDE 0.9% 500 ML IVPB SCH (23:00)
[2018-08-30 23:21] LABS: Urine Appearance CLEAR; Urine Bilirubin NEGATIVE (NEG); Urine Blood NEGATIVE (NEG); Urine Color YELLOW; Urine Glucose NEGATIVE (NEG); Urine Protein NEGATIVE (NEG); Urine Urobilinogen 0.2 mg/dL (0.2-1.0)
[2018-08-30 23:24] LABS: Urine Microscopic Reflex NO UMIC
[2018-08-31] MEDS: HYDROCODONE/APAP 7.5/325 MG TAB PO PRN ×3 (00:59→12:35)
[2018-08-31 02:31] VITALS: BMI 27.8
[2018-08-31] MEDS: MORPHINE 2 MG/ML SYR IV PRN ×2 (03:42→11:24)
[2018-08-31 05:27] LABS: Absolute Lymphocytes (CBC) 0.6 K/uL (0.7-4.9); Basophils % 0.7 % (0-1.3); Eosinophils % 1.3 % (0-4.4); Hematocrit 32.3 % (39.6-49.0); Lymphocytes % 6.7 % (15.3-44.8); MPV 8.6 fL (7.6-11.3); Monocytes % 13.9 % (3.3-12.3); RBC Red Blood Cell Count 4.27 M/uL (4.33-5.43)
[2018-08-31 05:41] LABS: Magnesium 1.6 mg/dL (1.8-2.4); Potassium 3.5 mmol/L (3.5-5.1)
[2018-08-31] MEDS ORDERED: MAGNESIUM SULFATE 1 gm IVPB 1 GM/100 ML BAG IV ONE (05:46)
[2018-08-31] MEDS ORDERED: POTASSIUM CL SA 10 MEQ TAB PO ONE (05:47)
[2018-08-31] MEDS: PANTOPRAZOLE 40MG TABLET PO SCH (06:23)
[2018-08-31] MEDS: SENOSIDES 8.6 MG TAB PO PRN ×2 (06:23→18:20)
[2018-08-31] MEDS: INSULIN -REGULAR HUMAN 50 UNIT/0.5 ML ML SQ SCH ×4 (07:30→20:33)
[2018-08-31] MEDS ORDERED: NA CHLORIDE 0.9% 250 ML IV ONE (07:51)
[2018-08-31] MEDS: CARVEDILOL 6.25 MG TAB PO SCH ×2 (08:00→16:49)
[2018-08-31] MEDS: CLOPIDOGREL 75 MG TABLET PO SCH (09:00)
[2018-08-31] MEDS: TORSEMIDE 20 MG TAB PO SCH (09:00)
[2018-08-31] MEDS ORDERED: VANCOMYCIN 1 GM in NA CHLORIDE 0.9% 500 ML IVPB SCH (09:00)
[2018-08-31] MEDS: SPIRONOLACTONE 25 MG TABLET PO SCH (09:00)
[2018-08-31] MEDS: COLLAGENASE 30 GM OINTMENT TOP SCH (11:23)
[2018-08-31] MEDS: ENOXAPARIN 40 MG/0.4 ML SQ SCH (11:24)
[2018-08-31] MEDS: CEFEPIME/SWI 1gm 10 ML IV SCH ×2 (11:24→20:27)
[2018-08-31] MEDS: VANCOMYCIN 1.75 GM in NA CHLORIDE 0.9% 500 ML IVPB SCH ×2 (11:28→22:33)
--- NOTE | 2018-08-31 11:42 | RAD REPORT ---
EXAM DESCRIPTION: MRIFoot Left Wo Cont08/31/2018 11:10 am CLINICAL HISTORY: Left foot pain and swelling COMPARISON: August 30, 2018 x-ray TECHNIQUE: Axial, sagittal and coronal magnetic resonance imaging of the left foot was obtained. FINDINGS: Lateral soft tissue ulceration involves the forefoot. Abnormal signal is present within the fifth metatarsal head consistent with osteomyelitis. Air is present within the adjacent soft tissues. IMPRESSION: Osteomyelitis involving the fifth metatarsal Air within the adjacent soft tissues may indicate additional infection
--- NOTE | 2018-08-31 11:51 | RAD REPORT ---
EXAM DESCRIPTION: US - Upper Lower Extrem Art Multi - 08/31/2018 10:34 am CLINICAL HISTORY: Soft tissue wound pending surgery, peripheral arterial disease, leg pain COMPARISON: None. TECHNIQUE: Velocity values and waveforms were obtained along the length of each lower extremity. Vis ual inspection of the lower extremity arterial tree performed. FINDINGS: No occlusion or focal flow restricting lesion identifiable. There is significant lower ext remity peripheral arterial atherosclerotic calcifications in each leg. Monophasic waveform patterns were seen along the length of each lower extremity suggesting patient guzman s significant disease in the iliac vasculature as well. Right common femoral artery peak velocity value was 165 cm/second. Superficial femoral artery velocit ies range from 46-107 cm/second. The popliteal artery velocity was 87 cm/second. Right posterior tibi al artery velocity reached 179 cm/second with a dorsalis pedis artery velocity value of 37 cm/second. Left common femoral artery velocity was 93 cm/second. Left superficial femoral artery velocities were significantly elevated with values ranging from 114-219 cm/second. Left popliteal artery velocity wa s 76 cm/second with the posterior tibial and dorsalis pedis artery values ranging from 41-49 cm/secon d. IMPRESSION: Significant bilateral lower extremity peripheral arterial disease is present and the pat ient likely has significant iliac atherosclerotic disease as well. No occluded stent or occluded artery. No focal flow restricting lesion identifiable. Atherosclerotic changes in velocity values indicate the most significant disease is in the left super ficial femoral artery.
--- NOTE | 2018-08-31 14:36 | CON ---
Date of Consultation: 08/30/2018 Reason: Cellulitis of the left leg. History Of Present Illness: The patient is a 67-year-old gentleman, whom I saw in the wound healing center on Tuesday with cellulitis of the left leg. He had a necrotic wound, which we debrided, and c ultures were sent, and he was started on oral antibiotics, Cipro and doxy, and he was advised that sh ould he have fever to contact us and be admitted for IV antibiotics as I was concerned that oral anti biotic may not be enough for the patient. He started having fevers yesterday. He contacted us at [facility], and I was contacted and advised the patient to go to the emergency room. He had a workup done. He does have cellulitis with elevated procalcitonin, and he was admitted for IV a ntibiotics, and I was consulted. He has no purulent discharge. He feels better today. No more feve rs today, but he had fever yesterday up to 101 and 102. No groin pain. He did have some arterial Do ppler done in April in [place], the result of which we do not know, but he was told that he had ve ry poor circulation. No sore throat, runny nose, cough, headaches, or dizziness. No chest pain. Review of Systems: Otherwise unremarkable. Past Medical History: Medical history is significant for diabetes; squamous cell cancer of the head and neck, he is being treated with immunotherapy right now; hypertension; hyperlipidemia; GERD; carot id arterial disease; peripheral vascular disease. Past Surgical History: Carotid artery stent placement, knee surgery, right great toe amputation, lef t second toe amputation, right fourth toe amputation. Allergies: CODEINE. Social History: The patient used to smoke in the past, does not anymore. Does not drink alcohol. Family History: Significant for diabetes and heart disease. Physical Examination: Vital Signs: Currently stable. He is afebrile. General: He is awake, alert, oriented x3. Head and Neck: Cranial nerves 2 through 12 grossly within normal limits. No neck masses. No JVD. Throat clear. Neck is supple. Chest: Clear. Heart: S1, S2. Abdomen: Soft. Extremities: Diminished dorsalis pedis and posterior tibial pulses. The left fifth toe appears to b e a little blue. There is a wound on the plantar aspect of the fifth metatarsal head, approximately 3 x 4 cm, half of it has more necrosis of the soft tissue. There is no purulent discharge. There is surrounding erythema, warmth, edema in the foot and in the leg as well. Laboratory Data: White count is 8.2. There is a left shift. Chemistry shows procalcitonin of 0.73. Magnesium is low, being replaced. Glucose is elevated. His x-ray of the foot shows no bony involv ement. Ulceration is seen in the lateral forefoot. Air within the soft tissue may be related to the ulceration or infection. No bony destructive lesion is seen. A large plantar calcaneal spur. Assessment: A 67-year-old gentleman with severe peripheral vascular disease, cellulitis, and possibl e bone infection of left lower extremity with severe peripheral vascular disease. Recommendations: We will await MRI results as well as arterial Doppler results. We will hold the Pl avix, and we will proceed with debridement of the necrotic tissue. Possibly the patient needs an amp utation of the fifth toe. We will await the Doppler studies before making that determination. Plan of care was discussed in detail with the patient and . /MODL Voice ID: [id number] Report ID: [id number]
--- NOTE | 2018-08-31 14:57 | P.PN ---
Subjective Date of Service: 08/31/18 Primary Care Provider: Dr. Yoon; Surgery-Dr. Montanez Chief Complaint: Left foot cellulitis Subjective: Other (Patient stable this morning.) Physical Examination - Vital Signs Temperature: 97.0 F Blood Pressure: 97/47 Pulse: 58 Respirations: 18 Pulse Ox (%): 98 - Physical Exam General: Alert, In no apparent distress, Oriented x3, Cooperative HEENT: Atraumatic Neck: Supple Respiratory: Clear to auscultation bilaterally, Normal air movement Cardiovascular: Normal pulses, Regular rate/rhythm Gastrointestinal: Normal bowel sounds, Soft and benign, Non-distended Neurological: Other (No significant change to the left lower extremity) - Studies Laboratory Data (last 24 hrs) 08/30/18 18:05: Sodium 130 L, Potassium 3.7, BUN 17, Creatinine 0.94, Glucose 123 H 08/30/18 18:05: WBC 10.6, Hgb 11.2 L, Hct 34.3 L, Plt Count 244 Medications List Reviewed: Yes Assessment & Plan Discharge Plan: Home Plan to discharge in: Greater than 2 days Physician Review Additional Text: Impression: Left foot cellulitis with diabetic foot ulcer to the 5th metatarsal region likely gangrene with osteomyelitis Diabetes mellitus type 2, non-insulin dependent Hypertension Peripheral vascular disease, severe Carotid arterial disease GERD Plan: MRI shows osteomyelitis of the 5th metatarsal region. Arterial Doppler shows severe PVD without obstruction. Surgery plans for 5th metatarsal head amputation tomorrow. Continue with his medications for diabetes, hypertension. Plavix currently on hold in preparation for surgery. Continue to adjust medication. Continue to monitor lab closely. Hold blood pressure medication if systolic less than 120. Will provide medication for pain. Will reassess tomorrow. Time Spent Managing Pts Care (In Minutes): 55
[2018-08-31] MEDS ORDERED: GLUCAGON 1 MG/VIAL IM PRN (16:21)
[2018-08-31] MEDS ORDERED: D50W 25 GM/50 ML SYRINGE IV PRN (16:21)
[2018-08-31] MEDS ORDERED: BISACODYL 10 MG RECTAL SUPP PR ONE (21:54)
[2018-09-01 05:08] LABS: Absolute Lymphocytes (CBC) 0.7 K/uL (0.7-4.9); Basophils % 0.6 % (0-1.3); Hematocrit 31.9 % (39.6-49.0); Lymphocytes % 8.3 % (15.3-44.8); MPV 8.5 fL (7.6-11.3); Monocytes % 12.7 % (3.3-12.3); RBC Red Blood Cell Count 4.22 M/uL (4.33-5.43)
[2018-09-01 05:15] LABS: BUN Blood Urea Nitrogen 12 mg/dL (7-18); Bicarbonate 28 mmol/L (21-32); Glucose Level 125 mg/dL (74-106); Magnesium 1.6 mg/dL (1.8-2.4); Potassium 3.3 mmol/L (3.5-5.1); Sodium Level 135 mmol/L (136-145)
[2018-09-01] MEDS: PANTOPRAZOLE 40MG TABLET PO SCH (05:20)
[2018-09-01] MEDS ORDERED: MAGNESIUM SULFATE 1 gm IVPB 1 GM/100 ML BAG IV ONE ×3 (06:06→12:00)
[2018-09-01] MEDS: INSULIN -REGULAR HUMAN 50 UNIT/0.5 ML ML SQ SCH ×4 (07:30→21:00)
[2018-09-01] MEDS: CARVEDILOL 6.25 MG TAB PO SCH ×2 (08:00→16:48)
[2018-09-01] MEDS ORDERED: NA CHLORIDE 0.9% 1,000 ML ONE (08:30)
[2018-09-01] MEDS: ENOXAPARIN 40 MG/0.4 ML SQ SCH (09:00)
[2018-09-01] MEDS: KCL 20 MEQ/100 mL IVPB 20 MEQ/100 ML BAG IV SCH ×2 (09:00→11:00)
[2018-09-01] MEDS: COLLAGENASE 30 GM OINTMENT TOP SCH (09:00)
[2018-09-01] MEDS: SPIRONOLACTONE 25 MG TABLET PO SCH (09:00)
[2018-09-01] MEDS: TORSEMIDE 20 MG TAB PO SCH (09:00)
[2018-09-01] MEDS ORDERED: BUPIVACAINE 0.5% PF 10 ML VIAL ONE (09:01)
[2018-09-01] MEDS: CEFEPIME/SWI 1gm 10 ML IV SCH ×2 (09:15→21:36)
[2018-09-01] MEDS ORDERED: MIDAZOLAM HCL 2 MG/2 ML INJ ONE (09:20)
[2018-09-01] MEDS ORDERED: PROPOFOL 200 MG/20 ML VIAL IV ONE (09:22)
[2018-09-01] MEDS ORDERED: LIDOCAINE 2% MPF 5 ML VIAL ONE (09:22)
--- NOTE | 2018-09-01 09:52 | P.OP ---
Preoperative diagnosis: Osteo L 5th Toe and infected wound L Foot Postoperative diagnosis: Same Primary procedure: L 5th Toe T-M Amputation, Excision Of Infected wound Anesthesia: Gen Estimated blood loss: min Specimen: L 5th Toe and infected wound Findings: as above Complications: None Transferred to: Recovery Room Condition: Good
[2018-09-01] MEDS ORDERED: COLLAGENASE 30 GM OINTMENT TOP ONE (09:58)
[2018-09-01] MEDS ORDERED: KETOROLAC 30 MG/ML INJ ONE (09:58)
--- NOTE | 2018-09-01 10:43 | P.PN ---
Subjective Date of Service: 09/01/18 Primary Care Provider: Dr. Yoon; Surgery-Dr. Montanez Chief Complaint: Left foot cellulitis Subjective: Doing well (Patient NPO for surgery today) Physical Examination - Vital Signs Temperature: 98.2 F Blood Pressure: 120/53 Pulse: 58 Respirations: 16 Pulse Ox (%): 97 - Physical Exam General: Alert, In no apparent distress, Oriented x3, Cooperative HEENT: Atraumatic Neck: Supple Respiratory: Clear to auscultation bilaterally, Normal air movement Cardiovascular: Normal pulses, Regular rate/rhythm Gastrointestinal: Normal bowel sounds, Soft and benign, Non-distended - Studies Medications List Reviewed: Yes Assessment & Plan Discharge Plan: Home Plan to discharge in: Greater than 2 days Physician Review Additional Text: Impression: Left foot cellulitis with diabetic foot ulcer to the 5th metatarsal region likely gangrene with osteomyelitis Diabetes mellitus type 2, non-insulin dependent Hypertension Peripheral vascular disease, severe Carotid arterial disease GERD Plan: Left foot cellulitis with diabetic foot ulcer to the 5th metatarsal region likely gangrene with osteomyelitis, recent wound culture positive for Klebsiella : Patient NPO for surgical intervention. Patient likely to have amputation of 5th metatarsal. Await recommendations by surgery. Continue IV antibiotic therapy at this time. Will have physical therapy assess patient likely tomorrow. Will need to determine if patient will require long-term IV antibiotic therapy after surgery or oral medication. Will discuss plan of care after surgery with surgeon. Diabetes mellitus type 2, non-insulin dependent: Continue sliding scale. Will monitor and adjust appropriately. Hypertension: Continue with medication. Will monitor and adjust appropriately. Peripheral vascular disease, severe: Restart Plavix if okay with surgery. Carotid arterial disease: Continue as above. GERD: Continue with medication. Time Spent Managing Pts Care (In Minutes): 55
[2018-09-01] MEDS: POTASSIUM 25 MEQ EFFERV TAB PO ONE ×2 (12:05→12:48)
[2018-09-01] MEDS: VANCOMYCIN 1.75 GM in NA CHLORIDE 0.9% 500 ML IVPB SCH ×2 (12:44→23:00)
[2018-09-01] MEDS ORDERED: POTASSIUM CL SA 10 MEQ TAB PO ONE (14:25)
--- NOTE | 2018-09-01 20:35 | OP ---
Date of Procedure: 09/01/2018 Surgeon: Rudy Montanez MD Preoperative Diagnoses: Osteomyelitis left fifth toe transmetatarsal region and infected wound, left foot. Postoperative Diagnoses: Osteomyelitis left fifth toe transmetatarsal region and infected wound, lef t foot. Procedure: Left fifth toe transmetatarsal amputation and excision of infected wound, left foot, 4 x 4 cm to subcutaneous tissue. Estimated Blood Loss: Minimal. Specimen: Necrotic tissue and left fifth toe. Finding: As above. Anesthesia: General. Complications: None. Disposition: The patient tolerated the procedure in stable condition, was taken to Recovery in good general condition. Procedure In Detail: The patient was brought to the OR and placed in supine position. General anest hesia was begun. The patient was prepped and draped in usual sterile fashion. Marcaine 0.5% was inf iltrated locally and then 15 blade sharp dissection proceeded around the base of the left fifth toe a nd to include the infected ulcer that was approximately 4 x 4 cm down through the subcutaneous tissue until the midshaft of the fifth metatarsal bone was identified and freed from surrounding tissue wit h sharp and blunt dissection. Then, a bone cutter was used to excise the bone and then sent to Patho logy. Cultures done. Wound irrigated. Bleeding controlled with cautery. Rongeur used to smooth ou t the rough edges and rasp used as well and then collagenase, wet-to-dry, normal saline, dressing julian nge applied. The patient tolerated the procedure well in stable condition, taken to Recovery in good gen eral condition. /MODL Voice ID: [id number] Report ID: [id number]
[2018-09-02] MEDS ORDERED: MELATONIN 3 MG TABLET PO ONE ×2 (00:30→22:50)
[2018-09-02] MEDS: PANTOPRAZOLE 40MG TABLET PO SCH (05:37)
[2018-09-02 06:10] LABS: Absolute Lymphocytes (CBC) 0.6 K/uL (0.7-4.9); Basophils % 1.1 % (0-1.3); Eosinophils % 1.5 % (0-4.4); Hematocrit 32.1 % (39.6-49.0); Lymphocytes % 10.3 % (15.3-44.8); MPV 8.2 fL (7.6-11.3); RBC Red Blood Cell Count 4.17 M/uL (4.33-5.43)
[2018-09-02 06:17] LABS: BUN Blood Urea Nitrogen 13 mg/dL (7-18); Bicarbonate 29 mmol/L (21-32); Glucose Level 176 mg/dL (74-106); Magnesium 1.9 mg/dL (1.8-2.4); Potassium 3.8 mmol/L (3.5-5.1); Sodium Level 139 mmol/L (136-145)
[2018-09-02] MEDS: INSULIN -REGULAR HUMAN 50 UNIT/0.5 ML ML SQ SCH ×4 (07:30→21:00)
[2018-09-02] MEDS: COLLAGENASE 30 GM OINTMENT TOP SCH (09:00)
[2018-09-02] MEDS ORDERED: POTASSIUM CL SA 10 MEQ TAB PO ONE (09:00)
[2018-09-02] MEDS: CEFEPIME/SWI 1gm 10 ML IV SCH ×2 (09:24→21:16)
[2018-09-02] MEDS: ENOXAPARIN 40 MG/0.4 ML SQ SCH (09:24)
[2018-09-02] MEDS: SENOSIDES 8.6 MG TAB PO PRN (09:25)
[2018-09-02] MEDS: TORSEMIDE 20 MG TAB PO SCH (09:25)
[2018-09-02] MEDS: CLOPIDOGREL 75 MG TABLET PO SCH (09:25)
[2018-09-02] MEDS: SPIRONOLACTONE 25 MG TABLET PO SCH (09:26)
[2018-09-02] MEDS: CARVEDILOL 6.25 MG TAB PO SCH ×2 (09:26→17:19)
[2018-09-02] MEDS ORDERED: FLEET ENEMA ADULT PR PRN (09:30)
[2018-09-02] MEDS ORDERED: MAGNESIUM CITRATE 300 ML BOT PO SCH (10:00)
[2018-09-02] MEDS: VANCOMYCIN 1.75 GM in NA CHLORIDE 0.9% 500 ML IVPB SCH ×2 (10:39→23:00)
--- NOTE | 2018-09-02 11:21 | P.PN ---
Subjective Date of Service: 09/02/18 Primary Care Provider: Dr. Yoon; Surgery-Dr. Montanez Chief Complaint: Left foot cellulitis Subjective: Other (Patient reports constipation.) Physical Examination - Vital Signs Temperature: 97.6 F Blood Pressure: 142/63 Pulse: 61 Respirations: 20 Pulse Ox (%): 7 - Physical Exam General: Alert, In no apparent distress, Oriented x3, Cooperative HEENT: Atraumatic Neck: Supple Respiratory: Clear to auscultation bilaterally, Normal air movement Cardiovascular: Normal pulses, Regular rate/rhythm Gastrointestinal: Normal bowel sounds, Soft and benign, Non-distended, No masses , No rebound, No guarding Musculoskeletal: Other (Bandage in place to the left lower extremity) Neurological: Normal speech, Normal strength at 5/5 x4 extr, Normal tone, Normal affect - Studies Medications List Reviewed: Yes Assessment & Plan Discharge Plan: Home Plan to discharge in: 48 Hours Physician Review Additional Text: Impression: Left foot cellulitis with diabetic foot ulcer to the 5th metatarsal region secondary to osteomyelitis, status post left 5th toe amputation with excision of infected wound Diabetes mellitus type 2, non-insulin dependent Hypertension Peripheral vascular disease, severe Carotid arterial disease GERD Constipation Anemia likely iron deficiency Plan: Left foot cellulitis with diabetic foot ulcer to the 5th metatarsal region secondary to osteomyelitis, status post left 5th toe amputation with excision of infected wound, recent wound culture positive for Klebsiella: Continue with IV antibiotic therapy. Case discussed at length with surgery yesterday and today. Will continue with current wound care. Will have physical therapy ambulate patient and make recommendations. On Tuesday social work will help arrange for wound VAC and follow up with surgery as an outpatient. Patient can be discharged on Tuesday with oral antibiotic therapy if okay with surgery. Diabetes mellitus type 2, non-insulin dependent: Continue sliding scale. Will monitor and adjust appropriately. Hypertension: Continue with medication. Will monitor and adjust appropriately. Peripheral vascular disease, severe: Restart Plavix. Carotid arterial disease: Continue as above. GERD: Continue with medication. Constipation: Will provide Mag citrate. Will give enema p.r. in if required. Anemia likely iron deficiency.: Will check iron and B12 studies. Patient may require iron supplementation. Time Spent Managing Pts Care (In Minutes): 55
--- NOTE | 2018-09-02 12:39 | PN ---
Date of Progress Note: 09/02/2018 Subjective: Patient is awake, alert, complaining of constipation. No pain with his foot. Vital sig ns stable, afebrile. Dressings clean, dry, and intact. Cultures are pending. White count is normal . H and H are stable. Assessment: Status post left fifth toe transmetatarsal amputation and excision of infected wound. Recommendations: Continue wound care and antibiotics as ordered. Check cultures. Adjust antibiotic s accordingly. As far as constipation is concerned, medical management at this point. /MODL Voice ID: [id number] Report ID: [id number]
[2018-09-02 20:18] VITALS: O2SAT 98
[2018-09-03] MEDS: MORPHINE 2 MG/ML SYR IV PRN (01:34)
[2018-09-03 05:32] LABS: Absolute Lymphocytes (CBC) 0.7 K/uL (0.7-4.9); Basophils % 1.4 % (0-1.3); Eosinophils % 1.6 % (0-4.4); Hematocrit 32.4 % (39.6-49.0); Monocytes % 13.1 % (3.3-12.3); RBC Red Blood Cell Count 4.33 M/uL (4.33-5.43)
[2018-09-03 06:14] LABS: BUN Blood Urea Nitrogen 11 mg/dL (7-18); Bicarbonate 31 mmol/L (21-32); Glucose Level 136 mg/dL (74-106); Magnesium 1.6 mg/dL (1.8-2.4); Potassium 3.4 mmol/L (3.5-5.1); Sodium Level 140 mmol/L (136-145); Transferrin 207 mg/dL (200-360)
[2018-09-03] MEDS: PANTOPRAZOLE 40MG TABLET PO SCH (06:25)
[2018-09-03] MEDS ORDERED: ALPRAZOLAM 1 MG TABLET PO PRN (07:15)
[2018-09-03] MEDS: INSULIN -REGULAR HUMAN 50 UNIT/0.5 ML ML SQ SCH ×2 (07:30→11:30)
[2018-09-03] MEDS ORDERED: METOLAZONE 2.5 MG TABLET PO SCH (09:00)
[2018-09-03] MEDS: ENOXAPARIN 40 MG/0.4 ML SQ SCH (09:00)
[2018-09-03] MEDS ORDERED: POTASSIUM CL SA 10 MEQ TAB PO ONE ×2 (09:00)
[2018-09-03] MEDS ORDERED: MAGNESIUM SULFATE 1 gm IVPB 1 GM/100 ML BAG IV ONE (09:00)
[2018-09-03] MEDS: CARVEDILOL 6.25 MG TAB PO SCH (09:22)
[2018-09-03] MEDS: CLOPIDOGREL 75 MG TABLET PO SCH (09:23)
[2018-09-03] MEDS: TORSEMIDE 20 MG TAB PO SCH (09:23)
[2018-09-03] MEDS: SPIRONOLACTONE 25 MG TABLET PO SCH (09:23)
[2018-09-03] MEDS: CEFEPIME/SWI 1gm 10 ML IV SCH (09:24)
[2018-09-03] MEDS: COLLAGENASE 30 GM OINTMENT TOP SCH (09:25)
--- NOTE | 2018-09-03 10:31 | P.DS ---
Admission Date: 08/30/18 Discharge Date: 09/03/18 Primary Care Provider: Dr. Yoon; Surgery-Dr. Montanez Disposition: DC HOME/HOME HEALTH CARE Discharge Condition: GOOD Reason for Admission: Left foot cellulitis Consultations: Surgery-Dr. Montanez Procedures: MRI foot: FINDINGS: Lateral soft tissue ulceration involves the forefoot. Abnormal signal is present within the fifth metatarsal head consistent with osteomyelitis. Air is present within the adjacent soft tissues. IMPRESSION: Osteomyelitis involving the fifth metatarsal Air within the adjacent soft tissues may indicate additional infection Arterial doppler: FINDINGS: No occlusion or focal flow restricting lesion identifiable. There is significant lower extremity peripheral arterial atherosclerotic calcifications in each leg. Monophasic waveform patterns were seen along the length of each lower extremity suggesting patient has significant disease in the iliac vasculature as well. Right common femoral artery peak velocity value was 165 cm/second. Superficial femoral artery velocities range from 46-107 cm/second. The popliteal artery velocity was 87 cm/second. Right posterior tibial artery velocity reached 179 cm /second with a dorsalis pedis artery velocity value of 37 cm/second. Left common femoral artery velocity was 93 cm/second. Left superficial femoral artery velocities were significantly elevated with values ranging from 114-219 cm/second. Left popliteal artery velocity was 76 cm/second with the posterior tibial and dorsalis pedis artery values ranging from 41-49 cm/second. IMPRESSION: Significant bilateral lower extremity peripheral arterial disease is present and the patient likely has significant iliac atherosclerotic disease as well. No occluded stent or occluded artery. No focal flow restricting lesion identifiable. Atherosclerotic changes in velocity values indicate the most significant disease is in the left superficial femoral artery. Surgery: Date of procedure: 09/01/2018 Surgeon: Dr. Montanez Preop diagnosis: Osteomyelitis left 5th toe an infected left foot wound Postop diagnosis: Same Prior in procedure: Left 5th toe(toe/metatarsal) amputation, excision of infected wound Specimen sent for pathology. Medical Problem List: Left foot cellulitis with diabetic foot ulcer to the 5th metatarsal region secondary to osteomyelitis, status post left 5th toe amputation with excision of infected wound Diabetes mellitus type 2, non-insulin dependent Hypertension Severe bilateral lower extremity peripheral arterial disease most significant to left superficial femoral artery Carotid arterial disease GERD Chronic Constipation Anemia with iron deficiency History of head/neck cancer Chronic pain Depression with anxiety Brief History of Present Illness: 67-year-old male presented to the emergency room with worsening left foot cellulitis. [facility] by surgery. Patient seen yesterday for chronic left lateral 5th metatarsal region ulcer at the clinic. It was debrided by surgery. Patient was placed on antibiotic therapy. He was told that if he had more pain, erythema and swelling that he would require hospital admission for IV antibiotic therapy. This morning he noted increasing fever, pain to the region. Increased swelling and erythema noted. Patient has prior amputations to several toes bilaterally. In the ER patient evaluated. CBC, BMP and x-ray pending at this time. Due to worsening symptoms and possible underlying gangrene patient was admitted for IV treatment. Case was discussed with surgery by the ER physician. Patient placed on antibiotic therapy. When I saw the patient ER, he appeared stable. Patient with underlying diabetes , hypertension, peripheral vascular disease. 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 Chemotherapy currently on hold due to chronic wound. Hospital Course: Patient presented with left foot cellulitis and chronic wound to the 5th metatarsal region. Patient recently had it debrided with [facility]. No improvement noted. Patient was admitted for IV antibiotic treatment and further evaluation. MRI shows osteomyelitis of the metatarsal region. Arterial Doppler shows significant bilateral lower extremity peripheral arterial disease. Surgery recommended intervention- amputation. Patient had 5th toe and metatarsal amputation with excision of infected wound. Patient tolerated procedure well. Wound culture positive for Klebsiella. Patient able to ambulate well. Wound VAC was to be arranged on Tuesday but patient preferred to go home. This was discussed in detail with surgery who agrees with discharge today. Wound VAC likely to be arranged as an outpatient. At discharge he will continue with current wound care. Patient will follow up with surgery at the [facility] in 1 week. Patient will continue with Augmentin 875 mg 1 pill twice daily for 10 days. Fall precaution in place. Patient with diabetes mellitus type 2, non-insulin dependent. This has remained stable. At discharge he will continue with glimepiride 4 mg daily and metformin 1000 mg daily. Recommendation is to maintain blood sugars less than 140 fasting and less than 200 meals. Further adjustment can be done by his PCP. Patient with hypertension. This has remained stable. At discharge he will continue with carvedilol 6.25 mg 1 pill twice daily. Patient will also continue with his other medications including Zaroxolyn 2.5 mg as scheduled, Aldactone 50 mg daily and Demadex 2 mg daily. Recommend to maintain blood pressures less 150/80. Further adjustment can be done by his PCP. Patient with severe bilateral lower extremity peripheral vascular disease. Patient will continue with Plavix 75 mg daily. Recommend to follow up with cardiology as an outpatient to further evaluate. Patient may require future intervention. Patient with GERD. Patient will continue with Protonix 40 mg 1 pill twice daily. Patient with depression and anxiety. At discharge he will continue with his medications of Paxil 20 mg daily and alprazolam 1 mg at bedtime. Further adjustment can be done by his PCP. Patient with underlying head and neck cancer. Patient takes chronic pain medication for this. Patient seen by oncology as an outpatient. Recommend follow up with oncology. Patient will continue with hydrocodone and methadone as directed. Patient to follow up with oncology/pain management to further address. Patient with chronic constipation. This is likely from has chronic pain medication. Patient may continue with medication over the counter as needed. Patient may continue with stool softener daily. Patient with chronic anemia related to iron deficiency. Patient will continue with multi vitamin daily. Vital Signs/Physical Exam: Temp Pulse Resp BP Pulse Ox 97.1 F 60 17 165/70 H 90 L 09/03/18 08:00 09/03/18 09:29 09/03/18 08:00 09/03/18 09:29 09/03/18 08:00 General: Alert, In no apparent distress, Oriented x3, Cooperative HEENT: Atraumatic Neck: Supple Respiratory: Clear to auscultation bilaterally, Normal air movement Cardiovascular: Normal pulses, Regular rate/rhythm Gastrointestinal: Normal bowel sounds, Soft and benign, Non-distended Integumentary: Other (Status post left metatarsal toe amputation. Bandage in the) Neurological: Normal speech, Normal strength at 5/5 x4 extr, Normal tone, Normal affect Laboratory Data at Discharge: WBC 5.8 K/uL (4.3-10.9) 09/03/18 05:14 Hgb 11.0 g/dL (13.6-17.9) L 09/03/18 05:14 Hct 32.4 % (39.6-49.0) L 09/03/18 05:14 Plt Count 242 K/uL (152-406) 09/03/18 05:14 Sodium 140 mmol/L (136-145) 09/03/18 05:14 Potassium 3.4 mmol/L (3.5-5.1) L 09/03/18 05:14 BUN 11 mg/dL (7-18) 09/03/18 05:14 Creatinine 0.69 mg/dL (0.55-1.3) 09/03/18 05:14 Glucose 136 mg/dL (74-106) H 09/03/18 05:14 Magnesium 1.6 mg/dL (1.8-2.4) L 09/03/18 05:14 Home Medications: Alprazolam 1 mg PO BEDTIME 01/15/14 Clopidogrel Bisulfate [Clopidogrel] 75 mg PO DAILY 01/15/14 Glimepiride 4 mg PO DAILY 01/15/14 Metformin HCl 1 mg PO DAILY 01/15/14 Carvedilol [Coreg*] 6.25 mg PO BID 08/30/18 Hydrocodone 10/APAP 325 [Alpha 10/325*] 1 tab PO SEECOM PRN 08/30/18 Magnesium Oxide [Magnesium] 500 mg PO DAILY 08/30/18 Methadone HCl [Methadone HCl*] 10 mg PO DIRECTED PRN 08/30/18 Metolazone [Zaroxolyn] 2.5 mg PO SEECOM 08/30/18 Multivit-Min/FA/Lycopen/Lutein [Centrum Silver Men Tablet] 1 each PO DAILY 08/30 PARoxetine HCl [Paxil*] 20 mg PO DAILY 08/30/18 Pantoprazole [Protonix Tab*] 40 mg PO BID 08/30/18 Senosides [Senokot*] 1 tab PO BID PRN 08/30/18 Spironolactone 50 mg PO DAILY 08/30/18 Torsemide [Demadex*] 20 mg PO DAILY 08/30/18 Amoxicillin/Potassium Clav [Augmentin 875-125 Tablet] 1 each PO BID #20 tablet 09/03/18 Collagenase [Santyl Ointment*] 1 appl TOP DAILY #1 tube 09/03/18 New Medications: Amoxicillin/Potassium Clav [Augmentin 875-125 Tablet] 1 each PO BID #20 tablet Collagenase [Santyl Ointment*] 1 appl TOP DAILY #1 tube Patient Discharge Instructions: 1. Recommend follow up with PCP in 1 week to follow up this hospitalization. 2. Patient presented with left foot cellulitis and chronic wound to the 5th metatarsal region. Patient recently had it debrided with surgery-[facility]. No improvement noted. Patient was admitted for IV antibiotic treatment and further evaluation. MRI shows osteomyelitis of the metatarsal region. Arterial Doppler shows significant bilateral lower extremity peripheral arterial disease. Surgery recommended intervention-amputation. Patient had 5th toe and metatarsal amputation with excision of infected wound. Patient tolerated procedure well. Wound culture positive for Klebsiella. Patient able to ambulate well. Wound VAC was to be arranged on Tuesday but patient preferred to go home. This was discussed in detail with surgery who agrees with discharge today. Wound VAC likely to be arranged as an outpatient. At discharge he will continue with current wound care. Patient will follow up with surgery [facility] the [facility] in 1 week. Patient will continue with Augmentin 875 mg 1 pill twice daily for 10 days[address] Fall precaution in place. 3. Patient with diabetes mellitus type 2, non-insulin dependent. This has remained stable. At discharge he will continue with glimepiride 4 mg daily and metformin 1000 mg daily. Recommendation is to maintain blood sugars less than 140 fasting and less than 200 meals. Further adjustment can be done by his PCP. 4. Patient with hypertension. This has remained stable. At discharge he will continue with carvedilol 6.25 mg 1 pill twice daily. Patient will also continue with his other medications including Zaroxolyn 2.5 mg as scheduled, Aldactone 50 mg daily and Demadex 2 mg daily. Recommend to maintain blood pressures less 150/ 80. Further adjustment can be done by his PCP. 5. Patient with severe bilateral lower extremity peripheral vascular disease. Patient will continue with Plavix 75 mg daily. Recommend to follow up with cardiology as an outpatient to further evaluate. Patient may require future intervention. 6. Patient with GERD. Patient will continue with Protonix 40 mg 1 pill twice daily. 7. Patient with depression and anxiety. At discharge he will continue with his medications of Paxil 20 mg daily and alprazolam 1 mg at bedtime. Further adjustment can be done by his PCP. 8. Patient with underlying head and neck cancer. Patient takes chronic pain medication for this. Patient seen by oncology as an outpatient. Recommend follow up with oncology. Patient will continue with hydrocodone and methadone as directed. Patient to follow up with oncology/pain management to further address. 9. Patient with chronic constipation. This is likely from has chronic pain medication. Patient may continue with medication over the counter as needed. Patient may continue with stool softener daily. 10. Patient with chronic anemia related to iron deficiency. Patient will continue with multi vitamin daily. Diet: ADA Activity: Fall precautions Time spent managing pt's care (in minutes): 55
[2018-09-03] MEDS ORDERED: VANCOMYCIN 1.75 GM in NA CHLORIDE 0.9% 500 ML IVPB SCH (17:00)
[2018-09-03] MEDS ORDERED: ALPRAZOLAM 1 MG TABLET PO SCH (21:00)
[2018-09-06 14:38] VITALS: BP 124/58; TEMP 97.6
== END 2018-09-03 12:22 | disposition home health service (06) | DRG 617 ==
LOC: ER 16:38 → ERHOLD 18:21 → 4TH 20:46
PROVIDERS: ADMIT Family Medicine; ATTEND Family Medicine
PROC: 0Y6Y0Z0 Detachment at Left 5th Toe, Complete, Open Approach (ICD-10-PCS; principal; 2018-09-01 09:00)
DX: E11.69 Type 2 diabetes mellitus with other specified complication (principal); M86.9 Osteomyelitis, unspecified; L03.116 Cellulitis of left lower limb; B96.1 Klebsiella pneumoniae [K. pneumoniae] as the cause of diseases classified elsewhere; E11.51 Type 2 diabetes mellitus with diabetic peripheral angiopathy without gangrene; E11.628 Type 2 diabetes mellitus with other skin complications; E11.621 Type 2 diabetes mellitus with foot ulcer; L97.529 Non-pressure chronic ulcer of other part of left foot with unspecified severity; C44.92 Squamous cell carcinoma of skin, unspecified; E11.40 Type 2 diabetes mellitus with diabetic neuropathy, unspecified; I10 Essential (primary) hypertension; D50.9 Iron deficiency anemia, unspecified; K21.9 Gastro-esophageal reflux disease without esophagitis; E78.5 Hyperlipidemia, unspecified; F41.9 Anxiety disorder, unspecified; G89.29 Other chronic pain; K59.09 Other constipation; F41.8 Other specified anxiety disorders; Z87.891 Personal history of nicotine dependence; Z89.422 Acquired absence of other left toe(s); Z89.421 Acquired absence of other right toe(s); Z89.411 Acquired absence of right great toe; Z88.5 Allergy status to narcotic agent
CPT/HCPCS: 36415; 80048; 80202; 81003; 82607; 82728; 82962; 83036; 83540; 83735; 84132; 84145; 84466; 85025; 87040; 87070; 87075; 87077; 87185; 87186; 87205; 88305; 88311; 93923; 96365; 96375; 97163; 99285; J0692; J1650; J2250; J2270; J2405; J2704; J3010; J3475; J3590; J7030

== ENCOUNTER 2019-06-30 11:49 | Emergency (ER) | payer OTHER ==
--- NOTE | 2019-06-30 12:56 | ER ---
Nurse's Notes [facility] Name: Brando Pizarro Age: 68 yrs Sex: Male : 1950 Arrival Date: 06/30/2019 Time: 11:51 Bed 4 Private MD: Nathen Yoon E Diagnosis: Acute upper respiratory infection, unspecified;Zoster [herpes zoster]-left back, hip, groin Presentation: 06/29 12:02 Chief complaint: Patient states: Rash to left side of groin area for 2 days. Fever 101 ll1 last night. + weakness. No cough/travel. sent him in. Coronavirus screen: Proceed with normal triage. Patient denies a cough. Patient denies shortness of breath or difficulty breathing. Patient reports a measured and/or subjective temperature greater than 100.4F. Patient denies travel on a cruise ship or to a country the [facility] currently lists as an affected area. Patient denies contact with known and/or suspected case of COVID-19. Ebola Screen: Patient denies travel to an Ebola-affected area in the 21 days before illness onset. Initial Sepsis Screen: Does the patient meet any 2 criteria? Temp <36.0*C (96.8*F)) or > 38.3*C (100.9*F). No. Patient's initial sepsis screen is negative. Risk Assessment: Do you want to hurt yourself or someone else? Patient reports no desire to harm self or others. Onset of symptoms was June 29, 2019. 12:02 Method Of Arrival: Ambulatory ll1 12:02 Acuity: YUMIKO 3 ll1 Historical: - Allergies: 12:04 Codeine; ll1 - PMHx: 12:04 brain cancer; neuropathy; Hypertension; Diabetes - NIDDM; Cancer; Chronic pain; Anxiety;ll1 - PSHx: 12:04 L shoulder repair; ll1 - Social history:: Patient/guardian denies using alcohol, street drugs, tobacco products. Screenin:12 Abuse screen: Denies threats or abuse. Nutritional screening: No deficits noted. em Tuberculosis screening: No symptoms or risk factors identified. Fall Risk None identified. Assessment: 12:15 General: Appears in no apparent distress. uncomfortable, Behavior is calm, cooperative, em appropriate for age, Reports fever for 2-3 days. Pain: Complains of pain in left gluteus kim, left femoral area and left hip Pain currently is 9 out of 10 on a pain scale. Neuro: Level of Consciousness is awake, alert, obeys commands, Oriented to person, place, time, situation, Appropriate for age. Cardiovascular: Capillary refill < 3 seconds Patient's skin is warm and dry. Respiratory: Airway is patent Respiratory effort is even, unlabored, Respiratory pattern is regular, symmetrical, Denies shortness of breath. Derm: Rash noted that is red, vesicular, on left gluteus kim, left femoral area and left hip. Musculoskeletal: Capillary refill < 3 seconds, Range of motion: intact in all extremities. Vital Signs: 12:02 BP 141 / 68; Pulse 63; Resp 18; Temp 98.8; Pulse Ox 99% ; Pain 9/10; ll1 ED Course: 11:51 Patient arrived in ED. am2 11:51 Nathen Yoon MD is Private Physician. am2 11:54 Jonah Howard MD is Attending Physician. [facility] 11:58 Tima Sandra, JYOTHI is Primary Nurse. em 12:03 Triage completed. ll1 12:04 Arm band placed on Patient placed in an exam room, on a stretcher. ll1 12:12 Patient has correct armband on for positive identification. Bed in low position. Call em light in reach. 12:54 Nathen Yoon MD is Referral Physician. [facility] 13:09 No provider procedures requiring assistance completed. Patient did not have IV access em during this emergency room visit. Administered Medications: 13:06 Drug: Valtrex 1000 mg Route: PO; em 13:09 Follow up: Response: Medication administered at discharge. em 13:06 Drug: Gabapentin 300 mg Route: PO; em 13:09 Follow up: Response: Medication administered at discharge. em 13:06 Drug: Doxycycline 100 mg Route: PO; em 13:09 Follow up: Response: Medication administered at discharge. em Outcome: 12:56 Discharge ordered by . [facility] 13:09 Discharged to home ambulatory. em 13:09 Condition: good 13:09 Discharge instructions given to patient, Instructed on discharge instructions, follow up and referral plans. medication usage, Demonstrated understanding of instructions, follow-up care, medications, Prescriptions given X 3. 13:10 Patient left the ED. em Signatures: Jonah Howard MD MD cha Munoz, Edgar, RN RN Swathi Jackson am2 Nancie Brandt, RN RN ll1
--- NOTE | 2019-06-30 12:57 | EDPHYS ---
Physician Documentation [facility] Name: Brando Pizarro Age: 68 yrs Sex: Male : 1950 Arrival Date: 06/30/2019 Time: 11:51 Bed 4 Private MD: Nathen Yoon E ED Physician Jonah Howard HPI: 06/29 12:46 This 68 yrs old Male presents to ER via Ambulatory with complaints of Fever, julian General Weakness, Rash. 12:46 The patient reports fever, that was measured at 101 degrees Fahrenheit. Onset: The julian symptoms/episode began/occurred 2 day(s) ago. Modifying factors: there are no obvious modifying factors. Associated signs and symptoms: Pertinent positives: cough, with clear sputum. Severity of symptoms: At their worst the symptoms were mild in the emergency department the symptoms are unchanged. The patient has not experienced similar symptoms in the past. Historical: - Allergies: 12:04 Codeine; ll1 - PMHx: 12:04 brain cancer; neuropathy; Hypertension; Diabetes - NIDDM; Cancer; Chronic pain; Anxiety;ll1 - PSHx: 12:04 L shoulder repair; ll1 - Social history:: Patient/guardian denies using alcohol, street drugs, tobacco products. ROS: 12:48 Constitutional: Negative for fever, chills, and weight loss, Eyes: Negative for injury, julian pain, redness, and discharge, ENT: Negative for injury, pain, and discharge, Neck: Negative for injury, pain, and swelling, Cardiovascular: Negative for chest pain, palpitations, and edema, Abdomen/GI: Negative for abdominal pain, nausea, vomiting, diarrhea, and constipation, Back: Negative for injury and pain, : Negative for injury, bleeding, discharge, and swelling, Skin: Negative for injury, rash, and discoloration, Neuro: Negative for headache, weakness, numbness, tingling, and seizure, Psych: Negative for depression, anxiety, suicide ideation, homicidal ideation, and hallucinations, Allergy/Immunology: Negative for hives, rash, and allergies, Endocrine: Negative for neck swelling, polydipsia, polyuria, polyphagia, and marked weight changes. 12:48 Respiratory: Positive for cough, with no reported sputum. 12:48 MS/extremity: Positive for pain, rash, of the left hip, left gluteal fold, left inner thigh and left upper thigh. Exam: 12:48 Constitutional: This is a well developed, well nourished patient who is awake, alert, julian and in no acute distress. Head/Face: Normocephalic, atraumatic. Eyes: Pupils equal round and reactive to light, extra-ocular motions intact. Lids and lashes normal. Conjunctiva and sclera are non-icteric and not injected. Cornea within normal limits. Periorbital areas with no swelling, redness, or edema. ENT: Nares patent. No nasal discharge, no septal abnormalities noted. Tympanic membranes are normal and external auditory canals are clear. Oropharynx with no redness, swelling, or masses, exudates, or evidence of obstruction, uvula midline. Mucous membranes moist. Neck: Trachea midline, no thyromegaly or masses palpated, and no cervical lymphadenopathy. Supple, full range of motion without nuchal rigidity, or vertebral point tenderness. No Meningismus. Chest/axilla: Normal chest wall appearance and motion. Nontender with no deformity. No lesions are appreciated. Cardiovascular: Regular rate and rhythm with a normal S1 and S2. No gallops, murmurs, or rubs. Normal PMI, no JVD. No pulse deficits. Respiratory: Lungs have equal breath sounds bilaterally, clear to auscultation and percussion. No rales, rhonchi or wheezes noted. No increased work of breathing, no retractions or nasal flaring. Abdomen/GI: Soft, non-tender, with normal bowel sounds. No distension or tympany. No guarding or rebound. No evidence of tenderness throughout. Back: No spinal tenderness. No costovertebral tenderness. Full range of motion. Male : Normal genitalia with no discharge or lesions. Neuro: Awake and alert, GCS 15, oriented to person, place, time, and situation. Cranial nerves II-XII grossly intact. Motor strength 5/5 in all extremities. Sensory grossly intact. Cerebellar exam normal. Normal gait. Psych: Awake, alert, with orientation to person, place and time. Behavior, mood, and affect are within normal limits. 12:48 Skin: rash a moderate rash is noted, zoster, on the left hip, left gluteal fold, left inner thigh and left upper thigh. Vital Signs: 12:02 BP 141 / 68; Pulse 63; Resp 18; Temp 98.8; Pulse Ox 99% ; Pain 9/10; ll1 MDM: 11:54 Patient medically screened. [facility] 12:49 Data reviewed: vital signs, nurses notes. [facility] 12:53 Differential diagnosis: impetigo, viral Infection, bacterial infection, bronchitis, julian pneumonia. Differential Diagnosis: Bronchitis Influenza Viral Syndrome Pneumonia Other shingles. 12:59 ED course: dw case with oncologist, no labs, treat with vatrex, gabapentin and [facility] doxycycline. will see this week. 06/29 12:46 Order name: PO challenge; Complete Time: 12:48 julian Administered Medications: 13:06 Drug: Valtrex 1000 mg Route: PO; em 13:09 Follow up: Response: Medication administered at discharge. em 13:06 Drug: Gabapentin 300 mg Route: PO; em 13:09 Follow up: Response: Medication administered at discharge. em 13:06 Drug: Doxycycline 100 mg Route: PO; em 13:09 Follow up: Response: Medication administered at discharge. em Disposition: 06/30/19 12:56 Discharged to Home. Impression: Acute upper respiratory infection, unspecified, Zoster [herpes zoster] - left back, hip, groin. - Condition is Stable. - Discharge Instructions: Shingles, Upper Respiratory Infection, Adult, Shingles, [id number], Upper Respiratory Infection, Adult, [id number], Cough, Adult, [id number], Cough, Adult. - Prescriptions for gabapentin 300 mg Oral capsule - take 1 capsule by ORAL route 2 times per day; 30 capsule. Valtrex 1 g Oral Tablet - take 1 tablet by ORAL route every 8 hours for 7 days; 21 tablet. Doxycycline Hyclate 100 mg Oral Tablet - take 1 tablet by ORAL route every 12 hours; 20 tablet. - Medication Reconciliation Form, Thank You Letter, Antibiotic Education, Prescription Opioid Use form. - Follow up: Private Physician; When: 2 - 3 days; Reason: Recheck today's complaints, Continuance of care, Re-evaluation by your physician. Follow up: Nathen Yoon MD; When: 2 - 3 days; Reason: Recheck today's complaints, Continuance of care, Re-evaluation by your physician. - Problem is new. - Symptoms have improved. Signatures: Jonah Howard MD MD cha Munoz, Edgar RN RN Rikki, Lynsay, RN RN ll1 Corrections: (The following items were deleted from the chart) 13:10 12:56 06/30/2019 12:56 Discharged to Home. Impression: Acute upper respiratory em infection, unspecified; Zoster [herpes zoster] - left back, hip, groin. Condition is Stable. Forms are Medication Reconciliation Form, Thank You Letter, Antibiotic Education, Prescription Opioid Use. Follow up: Private Physician; When: 2 - 3 days; Reason: Recheck today's complaints, Continuance of care, Re-evaluation by your physician. Follow up: Nathen Yoon; When: 2 - 3 days; Reason: Recheck today's complaints, Continuance of care, Re-evaluation by your physician. Problem is new. Symptoms have improved. julian
[2019-06-30] MEDS ORDERED: VALACYCLOVIR 500 MG TAB ONE (13:09)
[2019-06-30] MEDS ORDERED: GABAPENTIN 300 MG CAP ONE (13:09)
[2019-06-30] MEDS ORDERED: DOXYCYCLINE 100 MG CAP PO ONE (13:09)
[2019-06-30 13:24] VITALS: BP 141/68; TEMP 98.8; O2SAT 99
== END 2019-06-30 13:10 | disposition home or self-care (01) ==
LOC: ER 11:49
DX: B02.9 Zoster without complications (principal); J06.9 Acute upper respiratory infection, unspecified; I10 Essential (primary) hypertension; Z88.5 Allergy status to narcotic agent; Z85.841 Personal history of malignant neoplasm of brain
CPT/HCPCS: 99283

== ENCOUNTER 2020-07-20 17:56 | Inpatient (IN) | payer OTHER ==
[2020-07-20 18:56] LABS: Absolute Lymphocytes (CBC) 0.6 K/uL (0.7-4.9); Basophils % 0.6 % (0-1.3); Hematocrit 31.3 % (39.6-49.0); Lymphocytes % 4.3 % (15.3-44.8); MPV 8.4 fL (7.6-11.3)
[2020-07-20 18:59] LABS: Protime INR 1.28
[2020-07-20 19:04] LABS: Albumin 3.1 g/dL (3.4-5.0); Bilirubin Direct 0.3 mg/dL (0-0.2); Bilirubin Total 0.6 mg/dL (0.2-1.0); CKMB Creatine Kinase MB 2.6 ng/mL (0.3-3.6); Magnesium 1.6 mg/dL (1.8-2.4); Potassium 3.7 mmol/L (3.5-5.1); Protein, Total 6.8 g/dL (6.4-8.2); Troponin (Emerg Dept Use Only) 0.11 ng/mL (0.0-0.045)
[2020-07-20] MEDS ORDERED: METHYLPREDNISOLONE 125 MG INJ ONE (19:04)
--- NOTE | 2020-07-20 19:04 | RAD REPORT ---
EXAM DESCRIPTION: RAD - Chest Single View - 07/20/2020 6:39 pm CLINICAL HISTORY: CONGESTION, shortness of breath COMPARISON: March 2018 TECHNIQUE: AP portable chest image was obtained 07/20/2020 6:39 pm . FINDINGS: Interstitial and alveolar opacities scattered in the lung mistry similar to comparison. Ca rdiomegaly is present with vascular engorgement. Trachea is midline. Right costophrenic angle bluntin g is present. No pneumothorax. No acute bony abnormality seen. No acute aortic findings suspected. IMPRESSION: Mild to moderate CHF/volume overload pattern similar to the 2019 comparison.
[2020-07-20] MEDS ORDERED: LEVALBUTEROL 1.25 MG/3 ML NEB ONE (19:05)
[2020-07-20] MEDS ORDERED: DIAZEPAM 10 MG/2 ML INJ SYRINGE ONE (19:05)
[2020-07-20] MEDS ORDERED: CEFTRIAXONE/SWI 1gm 1 GM/10 ML SYR ONE (19:05)
[2020-07-20] MEDS ORDERED: KETOROLAC 30 MG/ML INJ ONE (19:05)
[2020-07-20] MEDS ORDERED: NA CHLORIDE 0.9% 1,000 ML ONE (19:05)
--- NOTE | 2020-07-20 19:31 | RAD REPORT ---
EXAM DESCRIPTION: CT - Head Brain Wo Cont - 07/20/2020 7:14 pm CLINICAL HISTORY: PAIN, headache COMPARISON: Head Brain Wo Cont dated 01/20/2016 TECHNIQUE: Axial 5 mm thick images of the head were obtained without IV contrast. All CT scans are performed using dose optimization technique as appropriate and may include automated exposure control or mA/KV adjustment according to patient size. FINDINGS: No intracranial hemorrhage, mass, edema or shift of mid-line structures. No acute infarcti on changes seen. No cortical edema or sulcal effacement. Atrophy chronic ischemic changes match the 2 016 comparison. Ventricles are in proportion to the volume loss. Arterial and physiologic calcificati ons are present. Mastoid air cells and visualized portions of the paranasal sinuses are clear. No acute bony findings. IMPRESSION: Negative non-contrast CT head examination for acute finding As detailed above, no significant changes have occurred since the 2015 study.
--- NOTE | 2020-07-20 19:40 | RAD REPORT ---
EXAM DESCRIPTION: CT - Thorax Wo Con - 07/20/2020 7:16 pm CLINICAL HISTORY: DYSPNEA COMPARISON: Chest Single View dated 07/20/2020 TECHNIQUE: Axial 5 mm thick images of the chest were obtained without IV contrast. All CT scans are performed using dose optimization technique as appropriate and may include automated exposure control or mA/KV adjustment according to patient size. FINDINGS: A 2.3 centimeter low-density mass is seen along the posterior aspect of a low-lying thyroi d gland. This is believed to be exophytic thyroid nodule. This can be monitored on subsequent imaging . The nodule is far too deep for fine-needle aspiration. No prior imaging is available to establish w hether this is a stable nodule. A 13 millimeter spiculated nodule is present in the inferior aspect of the right upper lobe near the minor fissure (image 32/65). A 2.8 centimeter right middle lobe mass or nodule abuts the major fissur e. A few additional much smaller nodular densities are present. Small hilar lymph nodes may be diffic ult to distinguish from vasculature due to the absence of contrast. Small bilateral pleural effusions are present. There is partial atelectasis in each posterior gutter. No pneumothorax. No abnormal mediastinal or hilar masses or lymphadenopathy seen. No gross aortic or pulmonary artery finding suspected. Mild cardiomegaly is seen. No pericardial thickening or effusion. No chest wall mass. A 19 millimeter left axillary region lymph node is seen showing some characterist ics suspicious for an a more aggressive lymph node. IMPRESSION: Lung masses are present as detailed. Largest is 2.8 cm in size. Findings are concerning for pulmonary metastatic disease. Small bilateral pleural effusions. Patient has nonspecific mediastinal and hilar lymph nodes difficu lt to fully evaluate in the absence of contrast. A 19 millimeter suspicious left axillary lymph node.
--- NOTE | 2020-07-20 20:01 | EDPHYS ---
Physician Documentation [facility] Name: Brando Pizarro Age: 69 yrs Sex: Male : 1950 Arrival Date: 07/20/2020 Time: 17:57 Bed 4 Private MD: ED Physician Zaid Reed HPI: 07/20 18:17 This 69 yrs old Male presents to ER via EMS with complaints of Shortness Of ma2 Breath. 18:17 The patient has shortness of breath at rest. Onset: The symptoms/episode began/occurred ma2 gradually, 1 day(s) ago. Associated signs and symptoms: Pertinent negatives: productive cough, fever, loss of consciousness, nausea. Severity of symptoms: At their worst the symptoms were moderate in the emergency department the symptoms are unchanged. The patient has experienced similar episodes in the past. hx o0f stave 4 lung ca on chemotherpay here with sob, ems states spo2 was 88, . Historical: - Allergies: 18:11 Codeine; jd3 - PMHx: 18:11 Anxiety; neuropathy; Diabetes - NIDDM; brain cancer; Hypertension; Cancer; Chronic jd3 pain; stage 4 lung cancer; - PSHx: 18:11 L shoulder repair; brain cancer removed; Heart stents; jd3 - Immunization history:: Adult Immunizations up to date, Client reports receiving the 2nd dose of the Covid vaccine. - Social history:: Smoking status: Patient/guardian denies using tobacco, but has a distant history of tobacco abuse, Patient/guardian denies using alcohol, street drugs, The patient lives with family. - Family history:: not pertinent. ROS: 18:17 Constitutional: Negative for fever, chills, and weight loss. ma2 18:17 All other systems are negative. Exam: 18:17 Constitutional: This is a well developed, well nourished patient who is awake, alert, ma2 and in no acute distress. Head/Face: Normocephalic, atraumatic. Eyes: Pupils equal round and reactive to light, extra-ocular motions intact. Lids and lashes normal. Conjunctiva and sclera are non-icteric and not injected. Cornea within normal limits. Periorbital areas with no swelling, redness, or edema. ENT: Nares patent. No nasal discharge, no septal abnormalities noted. Tympanic membranes are normal and external auditory canals are clear. Oropharynx with no redness, swelling, or masses, exudates, or evidence of obstruction, uvula midline. Mucous membranes moist. Neck: Trachea midline, no thyromegaly or masses palpated, and no cervical lymphadenopathy. Supple, full range of motion without nuchal rigidity, or vertebral point tenderness. No Meningismus. Chest/axilla: Normal chest wall appearance and motion. Nontender with no deformity. No lesions are appreciated. Cardiovascular: Regular rate and rhythm with a normal S1 and S2. No gallops, murmurs, or rubs. Normal PMI, no JVD. No pulse deficits. Respiratory: Lungs have equal breath sounds bilaterally, clear to auscultation and percussion. No rales, rhonchi or wheezes noted. No increased work of breathing, no retractions or nasal flaring. Abdomen/GI: Soft, non-tender, with normal bowel sounds. No distension or tympany. No guarding or rebound. No evidence of tenderness throughout. Back: No spinal tenderness. No costovertebral tenderness. Full range of motion. Skin: Warm, dry with normal turgor. Normal color with no rashes, no lesions, and no evidence of cellulitis. MS/ Extremity: Pulses equal, no cyanosis. Neurovascular intact. Full, normal range of motion. Neuro: Awake and alert, GCS 15, oriented to person, place, time, and situation. Cranial nerves II-XII grossly intact. Motor strength 5/5 in all extremities. Sensory grossly intact. Cerebellar exam normal. Normal gait. Vital Signs: 18:12 BP 158 / 75; Pulse 80; Resp 23 S; Temp 97.5(TE); Pulse Ox 100% on R/A; Weight 158.76 kg [facility] (R); Height 6 ft. 0 in. (182.88 cm) (R); Pain 8/10; 20:23 BP 140 / 80; Pulse 59; Resp 18; Pulse Ox 92% ; ea 21:00 BP 132 / 70; Pulse 56; Resp 18; Pulse Ox 100% on R/A; ea 22:16 BP 140 / 75; Pulse 55; Resp 19; Temp 97.6; Pulse Ox 98% ; ea 18:12 Body Mass Index 47.47 (158.76 kg, 182.88 cm) [facility] MDM: 18:14 Patient medically screened. [facility] 19:54 Data reviewed: vital signs, nurses notes, lab test result(s), EKG, radiologic studies, pkl CT scan, plain films. ED course: Talked to Benton Pearl ( [employer] ETL DEVELOPER ). Admit to Dr. Deluna. 07/20 18:17 Order name: Blood Culture Adult (2) [facility] 07/20 18:17 Order name: BMP [facility] 07/20 18:17 Order name: CBC with Diff [facility] 07/20 18:17 Order name: Ckmb [facility] 07/20 18:17 Order name: CPK; Complete Time: 19:38 [facility] 07/20 18:17 Order name: D-Dimer; Complete Time: 19:38 [facility] 07/20 18:17 Order name: Hepatic Function; Complete Time: 19:38 [facility] 07/20 18:17 Order name: Lipase; Complete Time: 19:38 [facility] 07/20 18:17 Order name: Magnesium; Complete Time: 19:38 [facility] 07/20 18:17 Order name: NT PRO-BNP; Complete Time: 19:38 [facility] 07/20 18:17 Order name: PT-INR; Complete Time: 19:38 [facility] 07/20 18:17 Order name: Ptt, Activated; Complete Time: 19:38 [facility] 07/20 18:17 Order name: Troponin (emerg Dept Use Only); Complete Time: 19:38 [facility] 07/20 18:18 Order name: Blood Culture [facility] 07/20 18:18 Order name: Basic Metabolic Panel; Complete Time: 19:38 [facility] 07/20 18:18 Order name: CBC with Automated Diff; Complete Time: 21:58 [facility] 07/20 18:18 Order name: CKMB Creatine Kinase MB; Complete Time: 19:38 [facility] 07/20 20:13 Order name: Urine Microscopic Only la1 07/20 21:25 Order name: COVID-19 : Document "Date of Symptom Onset" if Symptomatic. [facility] 07/20 21:50 Order name: CBC Smear Scan; Complete Time: 21:58 [facility] 07/20 22:12 Order name: CORONAVIRUS [facility] 07/20 22:52 Order name: SARS-COV-2 RT PCR [facility] 07/21 02:02 Order name: Glucose, Ancillary Testing [facility] 07/21 02:34 Order name: Urine Dipstick-Ancillary [facility] 07/21 05:51 Order name: CBC with Automated Diff EDPR 07/21 06:12 Order name: Comprehensive Metabolic Panel [facility] 07/21 06:12 Order name: Magnesium EDPR 07/21 06:55 Order name: Hemoglobin A1c EDPR 07/20 18:17 Order name: CT Head Brain wo Cont; Complete Time: 19:38 ma2 07/20 18:17 Order name: XRAY CXR (1 view); Complete Time: 19:38 ma2 07/20 18:17 Order name: EKG; Complete Time: 18:18 ma2 07/20 18:17 Order name: Cardiac monitoring; Complete Time: 18:39 ma2 07/20 18:17 Order name: EKG - Nurse/Tech; Complete Time: 18:39 ma2 07/20 18:17 Order name: IV Saline Lock; Complete Time: 18:39 ma2 07/20 18:17 Order name: Labs collected and sent; Complete Time: 18:39 ma2 07/20 18:17 Order name: O2 Per Protocol; Complete Time: 18:39 ma2 07/20 18:17 Order name: O2 Sat Monitoring; Complete Time: 18:39 ma2 07/20 19:12 Order name: Thorax Wo Con; Complete Time: 19:51 EDPR 07/20 20:13 Order name: Urine Dipstick-Ancillary (obtain specimen); Complete Time: 02:37 la1 07/20 20:33 Order name: Extrem Venous W Compression Quoc US la1 Administered Medications: 19:03 Drug: Valium (diazepam) 5 mg Route: IVP; Site: right wrist; jd3 22:27 Follow up: Response: No adverse reaction ea 19:04 Drug: Rocephin (cefTRIAXone) 1 grams Route: IV; Rate: calculated rate; Site: right jd3 wrist; 22:27 Follow up: IV Status: Completed infusion ea 19:04 Drug: NS 0.9% 1000 ml Route: IV; Rate: 75 ml/hr; Site: right wrist; jd3 07/21 07:56 Follow up: IV Status: Infusion continued upon admission [facility] 07/20 19:04 Drug: TORadol (ketorolac) 30 mg Route: IVP; Site: right wrist; jd3 22:28 Follow up: Response: No adverse reaction ea 19:05 Drug: SOLU-Medrol (methylPrednisoLONE) 125 mg Route: IVP; Site: right wrist; jd3 22:28 Follow up: Response: No adverse reaction ea 19:05 Drug: Xopenex (levalbuterol) 1.25 mg Route: Inhalation; jd3 07/21 07:57 Follow up: Response: No adverse reaction ll1 07/20 20:12 Drug: Lasix (furosemide) 40 mg Route: IVP; Site: right forearm; ea 22:27 Follow up: Response: No adverse reaction ea 20:12 Drug: Lovenox (enoxaparin) 1 mg/kg Route: Sub-Q; Site: abdomen; ea 22:26 Follow up: Response: No adverse reaction ea 20:47 Drug: AZITHromycin 500 mg Route: IVPB; Infused Over: 1 hrs; Site: right wrist; ea 22:27 Follow up: Response: No adverse reaction; IV Status: Completed infusion ea Disposition: 07/20/20 20:00 Hospitalization ordered by Shanae Deluna for Inpatient Admission. Preliminary diagnosis is Acute dyspnea. Hypoxia. Congestive heart failure. Stage 4 lung cancer. Elevated Troponin. - Bed requested for Telemetry/MedSurg (Inpatient). - Status is Inpatient Admission. ll1 - Condition is Stable. - Problem is new. - Symptoms are unchanged. Signatures: Dispatcher [employer] EDPR Kirsten Preston Pin, MD MD pk Benton Pearl, METAL FLOORING INSTALLER-C METAL FLOORING INSTALLER-Cla1 Alexandria Nava RN RN ea Davies, Jonathon, RN RN jd3 Alzahri, Mohammad, MD MD dc2 Saloni Guido 2 Nancie Brandt RN RN ll1 Corrections: (The following items were deleted from the chart) 19:12 18:18 Chest For PE Angio+CT.RAD.BRZ ordered. EDPR EDMS 21:28 20:00 Hospitalization Ordered by Shanae Deluna MD for Inpatient Admission. Preliminary mw2 diagnosis is Acute dyspnea. Hypoxia. Congestive heart failure. Stage 4 lung cancer. Elevated Troponin. Bed requested for Telemetry/MedSurg (Inpatient). Status is Inpatient Admission. Condition is Stable. Problem is new. Symptoms are unchanged. pk 07/21 07:10 07/20 21:28 07/20/2020 20:00 Hospitalization Ordered by Shanae Deluna MD for Inpatient bd Admission. Preliminary diagnosis is Acute dyspnea. Hypoxia. Congestive heart failure. Stage 4 lung cancer. Elevated Troponin. Bed requested for [facility] ER HOLD. Status is Inpatient Admission. Condition is Stable. Problem is new. Symptoms are unchanged. mw2 07/21 07:56 07:10 07/20/2020 20:00 Hospitalization Ordered by Shanae Deluna MD for Inpatient ll1 Admission. Preliminary diagnosis is Acute dyspnea. Hypoxia. Congestive heart failure. Stage 4 lung cancer. Elevated Troponin. Bed requested for Telemetry/MedSurg (Inpatient). Status is Inpatient Admission. Condition is Stable. Problem is new. Symptoms are unchanged. bd
--- NOTE | 2020-07-20 20:01 | ER ---
Nurse's Notes [facility] Name: Brando Pizarro Age: 69 yrs Sex: Male : 1950 Arrival Date: 07/20/2020 Time: 17:57 Bed 4 Private MD: Diagnosis: Acute dyspnea. Hypoxia. Congestive heart failure. Stage 4 lung cancer. Elevated Troponin Presentation: 07/20 18:04 Chief complaint: EMS states: "pt reported with stage 4 lung cancer reporting jd3 increasingly shortness of breath since last night. on our arrival the pt had an O2 level in the lower 80's. we place him on Non-rebreather and it went up to 100%. other than the shortness of breath the pt is reporting a headache.". Coronavirus screen: difficulty breathing, Client presents with at least one sign or symptom that may indicate coronavirus-19. Standard/surgical mask placed on the client. Provider contacted for isolation considerations. Ebola Screen: Patient negative for fever greater than or equal to 101.5 degrees Fahrenheit, and additional compatible Ebola Virus Disease symptoms. Initial Sepsis Screen: Does the patient meet any 2 criteria? No. Patient's initial sepsis screen is negative. Does the patient have a suspected source of infection? No. Patient's initial sepsis screen is negative. Risk Assessment: Do you want to hurt yourself or someone else? Patient reports no desire to harm self or others. Onset of symptoms was July 19, 2020. 18:04 Method Of Arrival: EMS: [facility] jd3 18:04 Acuity: [id number] 3 jd3 Triage Assessment: 18:15 Respiratory: Onset: The symptoms/episode began/occurred yesterday, the patient has jd3 moderate shortness of breath. Historical: - Allergies: 18:11 Codeine; jd3 - PMHx: 18:11 Anxiety; neuropathy; Diabetes - NIDDM; brain cancer; Hypertension; Cancer; Chronic jd3 pain; stage 4 lung cancer; - PSHx: 18:11 L shoulder repair; brain cancer removed; Heart stents; jd3 - Immunization history:: Adult Immunizations up to date, Client reports receiving the 2nd dose of the Covid vaccine. - Social history:: Smoking status: Patient/guardian denies using tobacco, but has a distant history of tobacco abuse, Patient/guardian denies using alcohol, street drugs, The patient lives with family. - Family history:: not pertinent. Screenin:15 Abuse screen: Denies threats or abuse. Nutritional screening: No deficits noted. jd3 Tuberculosis screening: No symptoms or risk factors identified. Fall Risk Ambulatory Aid- None/Bed Rest/Nurse Assist (0 pts). Gait- Normal/Bed Rest/Wheelchair (0 pts) Mental Status- Oriented to own ability (0 pts). Total Huizar Fall Scale indicates No Risk (0-24 pts). Assessment: 18:13 General: Appears in no apparent distress. uncomfortable, Behavior is calm, cooperative, jd3 appropriate for age. Pain: Complains of pain in head Quality of pain is described as aching, pressure. Neuro: Level of Consciousness is awake, alert, obeys commands, Oriented to person, place, time, situation. Cardiovascular: Capillary refill < 3 seconds Patient's skin is warm and dry. Rhythm is regular. Respiratory: Reports shortness of breath at rest Airway is patent Respiratory effort is even, labored, Respiratory pattern is symmetrical, tachypnea Breath sounds are diminished bilaterally. GI: No signs and/or symptoms were reported involving the gastrointestinal system. : No signs and/or symptoms were reported regarding the genitourinary system. EENT: No signs and/or symptoms were reported regarding the EENT system. Derm: Skin is intact, Skin is dry, Skin is normal, Skin temperature is warm. Musculoskeletal: Circulation, motion, and sensation intact. Range of motion: intact in all extremities. 19:50 General: Appears in no apparent distress. Behavior is calm, cooperative, appropriate ea for age. Pain: Denies pain. Neuro: Level of Consciousness is awake, alert, obeys commands, Oriented to person, place, time, situation. Cardiovascular: Patient's skin is warm and dry. Respiratory: Airway is patent Respiratory effort is even, unlabored, Respiratory pattern is symmetrical, tachypnea. Derm: Skin is pink, warm \\T\\ dry. 20:50 Reassessment: Patient and/or family updated on plan of care and expected duration. Pain ea level reassessed. Patient is alert, oriented x 3, equal unlabored respirations, skin warm/dry/pink. 21:30 Reassessment: Patient and/or family updated on plan of care and expected duration. Pain ea level reassessed. Patient is alert, oriented x 3, equal unlabored respirations, skin warm/dry/pink. 22:25 Reassessment: Patient and/or family updated on plan of care and expected duration. Pain ea level reassessed. Patient is alert, oriented x 3, equal unlabored respirations, skin warm/dry/pink. Vital Signs: 18:12 BP 158 / 75; Pulse 80; Resp 23 S; Temp 97.5(TE); Pulse Ox 100% on R/A; Weight 158.76 kg jd3 (R); Height 6 ft. 0 in. (182.88 cm) (R); Pain 8/10; 20:23 BP 140 / 80; Pulse 59; Resp 18; Pulse Ox 92% ; ea 21:00 BP 132 / 70; Pulse 56; Resp 18; Pulse Ox 100% on R/A; ea 22:16 BP 140 / 75; Pulse 55; Resp 19; Temp 97.6; Pulse Ox 98% ; ea 18:12 Body Mass Index 47.47 (158.76 kg, 182.88 cm) jd3 ED Course: 17:57 Patient arrived in ED. am2 17:58 Travis Edgar NP is PHCP. pm1 17:58 Shanae Siegel MD is Attending Physician. pm1 18:03 Cristopher Davidson RN is Primary Nurse. jd3 18:09 Triage completed. jd3 18:13 Arm band placed on. jd3 18:15 Patient has correct armband on for positive identification. Bed in low position. Call jd3 light in reach. Side rails up X2. Adult w/ patient. aircraft line assembler on. Pulse ox on. NIBP on. 18:38 XRAY CXR (1 view) In Process Unspecified. EDMS 19:14 CT Head Brain wo Cont In Process Unspecified. EDMS 19:16 Thorax Wo Con In Process Unspecified. EDMS 19:18 Primary Nurse role handed off by Cristopher Davidson RN mw2 19:35 Attending Physician role handed off by Shanae Siegel MD pkl 19:35 Zaid Reed MD is Attending Physician. pkl 19:56 Alexandria Nava, JYOTHI is Primary Nurse. ea 19:56 Shanae Dleuna MD is Hospitalizing Provider. pkl 22:22 Ultrasound completed. Patient tolerated well. Notified ED Physician sg3 22:25 No provider procedures requiring assistance completed. Patient admitted, IV remains in ea place. Administered Medications: 19:03 Drug: Valium (diazepam) 5 mg Route: IVP; Site: right wrist; jd3 22:27 Follow up: Response: No adverse reaction ea 19:04 Drug: Rocephin (cefTRIAXone) 1 grams Route: IV; Rate: calculated rate; Site: right [facility] wrist; 22:27 Follow up: IV Status: Completed infusion ea 19:04 Drug: NS 0.9% 1000 ml Route: IV; Rate: 75 ml/hr; Site: right wrist; d3 07/21 07:56 Follow up: IV Status: Infusion continued upon admission [facility] 07/20 19:04 Drug: TORadol (ketorolac) 30 mg Route: IVP; Site: right wrist; jd3 22:28 Follow up: Response: No adverse reaction ea 19:05 Drug: SOLU-Medrol (methylPrednisoLONE) 125 mg Route: IVP; Site: right wrist; jd3 22:28 Follow up: Response: No adverse reaction ea 19:05 Drug: Xopenex (levalbuterol) 1.25 mg Route: Inhalation; [facility] 07/21 07:57 Follow up: Response: No adverse reaction [facility] 07/20 20:12 Drug: Lasix (furosemide) 40 mg Route: IVP; Site: right forearm; ea 22:27 Follow up: Response: No adverse reaction ea 20:12 Drug: Lovenox (enoxaparin) 1 mg/kg Route: Sub-Q; Site: abdomen; ea 22:26 Follow up: Response: No adverse reaction ea 20:47 Drug: AZITHromycin 500 mg Route: IVPB; Infused Over: 1 hrs; Site: right wrist; ea 22:27 Follow up: Response: No adverse reaction; IV Status: Completed infusion ea Outcome: 20:00 Decision to Hospitalize by Provider. pkl 22:25 Admitted to ER Hold. [facility]. ea 22:25 Condition: stable 22:25 Instructed on the need for admit, Demonstrated understanding of instructions. 07/21 07:56 Patient left the ED. [facility] Signatures: Dispatcher [employer] EDMS Zaid Reed MD MD pkl Travis Edgar, RECYCLE COORDINATOR RECYCLE COORDINATOR pm1 Swathi Castillo am2 Alexandria Nava, RN RN april Davidson, Cristopher RN RN jd3 Julio César, Toyin sg3 Shanae Siegel MD MD in2 DuttonSaloni 2 Nancie Brandt RN RN ll1
[2020-07-20] MEDS ORDERED: FUROSEMIDE 40 MG/4 ML VIAL ONE (20:18)
[2020-07-20] MEDS ORDERED: ENOXAPARIN 100 MG/ML SYR SQ ONE (20:18)
[2020-07-20] MEDS ORDERED: AZITHROMYCIN 500 MG INJ IVPB ONE (21:00)
[2020-07-20] MEDS ORDERED: NA CHLORIDE 0.9% 250 ML ONE (21:00)
--- NOTE | 2020-07-20 21:34 | P.HP ---
Certification for Inpatient Patient admitted to: Inpatient With expected LOS: >2 Midnights Patient will require the following post-hospital care: None Practitioner: I am a practitioner with admitting privileges, knowledge of patient current condition, hospital course, and medical plan of care. Services: Services provided to patient in accordance with Admission requirements found in Title 42 Section 412.3 of the Code of Federal Regulations Patient History Date of Service: 07/20/20 Reason for admission: Dyspnea, hypoxia History of Present Illness: 69-year-old male with history of diabetes mellitus type 2, hypertension, stage IV lung cancer presents emergency department for shortness of breath. Patient reports that shortness breath began last night, orthopnea. Upon arrival to the emergency department patient noted to be hypoxic, labs in the emergency department reveal white blood cell count 13.6 hemoglobin 9.8 hematocrit 31.3 D-dimer 1561 creatinine 1.68 GFR 41 glucose 281, troponin 0.11. BNP 76402 chest x-ray demonstrates mild to moderate CHF/volume overload pattern CT head brain without any acute findings CT chest without contrast due to patient's renal function demonstrates lung masses, small bilateral pleural effusions, 19 mm left axillary lymph node. There is some concern for pulmonary embolism given patient's cancer history, elevated D-dimer BNP and troponin, ultrasound lower extremities currently pending, V/Q scan ordered for the morning. Allergies codeine Allergy (Mild, Verified 08/31/18 02:41) Nausea/Vomiting cetuximab Allergy (Verified 08/31/18 02:41) Nausea/Vomiting Home Medications: Alprazolam 1 mg PO BEDTIME 01/15/14 Clopidogrel Bisulfate [Clopidogrel] 75 mg PO DAILY 01/15/14 Glimepiride 4 mg PO DAILY 01/15/14 Metformin HCl 1 mg PO DAILY 01/15/14 Hydrocodone 10/APAP 325 [[place] 10/325*] 1 tab PO SEECOM PRN 08/30/18 Magnesium Oxide [Magnesium] 500 mg PO DAILY 08/30/18 Methadone HCl [Methadone HCl*] 10 mg PO DIRECTED PRN 08/30/18 Metolazone [Zaroxolyn] 2.5 mg PO SEECOM 08/30/18 Multivit-Min/FA/Lycopen/Lutein [Centrum Silver Men Tablet] 1 each PO DAILY 08/30/18 PARoxetine HCL [Paxil*] 20 mg PO DAILY 08/30/18 Pantoprazole [Protonix Tab*] 40 mg PO BID 08/30/18 Senosides [Senokot*] 1 tab PO BID PRN 08/30/18 Spironolactone 50 mg PO DAILY 08/30/18 Torsemide [Demadex*] 20 mg PO DAILY 08/30/18 carvediloL [Coreg*] 6.25 mg PO BID 08/30/18 Amoxicillin/Potassium Clav [Augmentin 875-125 Tablet] 1 each PO BID #20 tablet 09/03/18 Collagenase [Santyl Ointment*] 1 appl TOP DAILY #1 tube 09/03/18 - Past Medical/Surgical History Diabetic: Yes -: Diabetes mellitus type 2, [id number] -: Squamous cell head/neck cancer -: Hypertension -: Hyperlipidemia -: GERD -: Peripheral vascular disease -: Carotid arterial disease -: Stage IV lung cancer -: carotid artery stent -: knee sx -: right great toe amputation 09/30/15 -: left 2nd toe amputation -: right 4th toe amputation Psychosocial/ Personal History: Patient is - Family History Mother -: Diabetes Father -: Other (see notes) Notes: heart failure - Social History Smoking Status: Former smoker Alcohol use: No CD- Drugs: No Caffeine use: No Review of Systems 10-point ROS is otherwise unremarkable Respiratory: Cough, Shortness of Breath Cardiovascular: Orthopnea Physical Examination - Physical Exam General: Alert, In no apparent distress HEENT: Atraumatic, PERRLA, Mucous membr. moist/pink Neck: Supple, 2+ carotid pulse no bruit, No LAD Respiratory: Clear to auscultation bilaterally, Normal air movement, Crackles/rales, Expiratory wheezes (Mild expiratory wheezing noted) Cardiovascular: Regular rate/rhythm, Normal S1 S2 Gastrointestinal: Normal bowel sounds, No tenderness Musculoskeletal: No tenderness Integumentary: No rashes Neurological: Normal speech, Normal strength at 5/5 x4 extr, Normal tone, Normal affect - Studies Laboratory Data (last 24 hrs) 07/20/20 18:30: PT 14.7 H, INR 1.28, APTT 24.2 L 07/20/20 18:30: WBC 13.60 H, Hgb 9.8 L, Hct 31.3 L, Plt Count 246 07/20/20 18:30: Sodium 137, Potassium 3.7, BUN 15, Creatinine 1.68 H, Glucose 281 H, Magnesium 1.6 L, Total Bilirubin 0.6, AST 13 L, ALT 16, Alkaline Phosphatase 88, Lipase 88 Assessment and Plan - Plan Assessment Dyspnea, hypoxia, NSTEMI rule out PE vs. ACS vs. Acute heart failure Acute kidney injury Stage IV lung cancer Diabetes mellitus type 2 Hypertension Plan Dyspnea, hypoxia, NSTEMI rule out PE vs. ACS vs. Acute heart failure: Monitor on telemetry, trend troponins, patient given full dose Lovenox in the emergency department, will continue this. Cardiology consulted, will obtain echocardiogram. DVT study lower extremities pending, will obtain V/Q scan in the morning to rule out pulmonary embolism as patient does have history of cancer. Continue with IV Lasix 40 mg IV b.i.d.. Continue with full-dose Lovenox for DVT prophylaxis. Acute kidney injury: Likely multifactorial, patient with stage IV cancer on oral chemo, appears to be overloaded. Will continue with IV Lasix, consult nephrology as necessary. Stage IV lung cancer: Patient currently on oral chemotherapy, was previously told he has 3 months to live, CT chest without contrast does demonstrate metastatic disease. Supplemental oxygen as needed, continue as planned above Diabetes mellitus type 2: A.c. HS Accu-Cheks, sliding scale insulin therapy. A1c. Hypertension: Continue home medications as appropriate. Discharge Plan: Home Plan to discharge in: Greater than 2 days - Advance Directives Does patient have a Living Will: No Does patient have a Durable POA for Healthcare: No - Code Status/Comfort Care Code Status Assessed: Yes (Full code) Critical Care: No Time Spent Managing Pts Care (In Minutes): 55
[2020-07-20 21:50] LABS: Anisocytosis 1+; Blood Morphology Comment NOTED (NOT SEEN); Platelet Estimate ADEQ; Poikilocytosis 3+; White Blood Cell Scan OK (OK)
[2020-07-21] MEDS: INSULIN -REGULAR HUMAN 50 UNIT/0.5 ML ML SQ SCH ×5 (00:54→20:19)
[2020-07-21] MEDS ORDERED: ACETAMINOPHEN 500 MG TAB PO PRN (00:54)
[2020-07-21] MEDS ORDERED: ENOXAPARIN 100 MG/ML SYR SQ SCH (00:54)
[2020-07-21] MEDS ORDERED: ONDANSETRON 4 MG/2 ML VIAL IV PRN (00:54)
[2020-07-21] MEDS ORDERED: INSULIN -REGULAR HUMAN 50 UNIT/0.5 ML ML ONE (02:23)
[2020-07-21] MEDS ORDERED: ACETAMINOPHEN 500 MG TAB ONE (02:28)
[2020-07-21 02:34] LABS: Urine Blood Negative (Negative); Urine Glucose 2+ (Negative); Urine Protein Negative (Negative)
[2020-07-21 03:02] LABS: Urine Bacteria <20 /HPF (NONE SEEN); Urine RBC NONE SEEN /HPF (NONE SEEN)
[2020-07-21 03:21] VITALS: BMI 33.9
[2020-07-21 05:47] LABS: Absolute Lymphocytes (CBC) 0.5 K/uL (0.7-4.9); Basophils % 0.5 % (0-1.3); Hematocrit 32.8 % (39.6-49.0); Lymphocytes % 6.3 % (15.3-44.8); MPV 8.4 fL (7.6-11.3); RBC Red Blood Cell Count 4.05 M/uL (4.33-5.43)
[2020-07-21 06:12] LABS: Albumin 3.3 g/dL (3.4-5.0); Bilirubin Total 0.5 mg/dL (0.2-1.0); Magnesium 1.8 mg/dL (1.8-2.4); Potassium 4.3 mmol/L (3.5-5.1); Protein, Total 7.2 g/dL (6.4-8.2)
[2020-07-21] MEDS ORDERED: CEFTRIAXONE 1 GM/NS 50 ML 1 GM/50 ML BAG IV SCH (09:00)
[2020-07-21] MEDS ORDERED: ENOXAPARIN 80 MG/0.8 ML SQ SCH (09:00)
[2020-07-21] MEDS ORDERED: FUROSEMIDE 20 MG/ 2ML VIAL IV SCH (09:00)
[2020-07-21] MEDS ORDERED: TRAMADOL HCL 50 MG TAB PO PRN (09:22)
--- NOTE | 2020-07-21 11:05 | RAD REPORT ---
EXAM DESCRIPTION: USExtrem Venous W Compress Bil07/20/2020 10:22 pm CLINICAL HISTORY: Leg swelling COMPARISON: none FINDINGS: The common femoral, superficial femoral, popliteal and posterior tibial veins bilaterally are compressible and demonstrate augmentation. Doppler demonstrates good flow. IMPRESSION: No evidence of deep venous thrombosis involving either lower extremity.
--- NOTE | 2020-07-21 12:20 | RAD REPORT ---
EXAM DESCRIPTION: NM - Vent Perfusion VQ Scan - 07/21/2020 11:59 am CLINICAL HISTORY: Shortness of breath COMPARISON: CT chest July 20, 2020 TECHNIQUE: 20.2 Mci Xe133 was administered by inhalation. First breath, equilibrium, and washout images of the lungs obtained 6.7 millicuries Technetium-99 MAA was administered intravenously. Anterior, posterior, lateral and ob lique views of the lungs were taken. FINDINGS: The lungs demonstrate relatively homogeneous radiotracer activity on ventilation and perfu ej sequences. No mismatched segmental or lobar perfusion defects are seen. IMPRESSION: No evidence of a pulmonary embolus
--- NOTE | 2020-07-21 12:31 | P.CNS ---
Date of Consult: 07/21/20 Chief Complaint: Dyspnea, hypoxia History of Present Illness: Patient is 69 years of age she has stage IV lung cancer diabetes hypertension admitted with shortness of breath worse for the past week with hypoxic on admission feels a little better stool that he has stage IV cancer also has bilateral pleural effusion V/Q scan and lower extremity Doppler no evidence of DVT or PE Allergies codeine Allergy (Mild, Verified 08/31/18 02:41) Nausea/Vomiting cetuximab Allergy (Verified 08/31/18 02:41) Nausea/Vomiting Home Medications: Alprazolam 1 mg PO BEDTIME 01/15/14 Clopidogrel Bisulfate [Clopidogrel] 75 mg PO DAILY 01/15/14 Glimepiride 4 mg PO BID 01/15/14 Metformin HCl 1,000 mg PO BID 01/15/14 Hydrocodone 10/APAP 325 [[place] 10/325*] 1 tab PO SEECOM PRN 08/30/18 Pantoprazole [Protonix Tab*] 40 mg PO BID 08/30/18 Senosides [Senokot*] 1 tab PO BID PRN 08/30/18 Torsemide [Demadex*] 20 mg PO DAILY 08/30/18 carvediloL [Coreg*] 6.25 mg PO BID 08/30/18 Escitalopram [Lexapro] 10 mg PO DAILY 07/21/20 Fenofibrate [Tricor] 160 mg PO DAILY 07/21/20 Losartan Potassium 25 mg PO DAILY 07/21/20 Mirtazapine [Remeron] 15 mg PO DAILY 07/21/20 - Past Medical/Surgical History Diabetic: Yes -: Diabetes mellitus type 2, [id number] -: Squamous cell head/neck cancer -: Hypertension -: Hyperlipidemia -: GERD -: Peripheral vascular disease -: Carotid arterial disease -: Stage IV lung cancer -: neuropathy -: carotid artery stent -: knee sx -: right great toe amputation 09/30/15 -: left 2nd toe amputation -: right 4th toe amputation -: left 5th toe amputation Psychosocial/ Personal History: Patient is - Family History Mother Medical History: Diabetes Father Medical History: Other (see notes) Notes: heart failure - Social History Smoking Status: Former smoker Alcohol use: No CD- Drugs: No Caffeine use: Yes Place of Residence: Home Review of Systems Respiratory: Cough, Shortness of Breath Physical Examination Temp Pulse Resp BP Pulse Ox 97.4 F 63 18 162/84 H 95 07/21/20 08:00 07/21/20 09:15 07/21/20 10:54 07/21/20 09:15 07/21/20 10:54 General: Alert, In no apparent distress, Oriented x3 Respiratory: Clear to auscultation bilaterally Cardiovascular: No edema, Regular rate/rhythm Gastrointestinal: Normal bowel sounds, Soft and benign Musculoskeletal: No clubbing Integumentary: No rashes, No significant lesion Laboratory Data (last 24 hrs) 07/20/20 18:30: PT 14.7 H, INR 1.28, APTT 24.2 L 07/20/20 18:30: WBC 13.60 H, Hgb 9.8 L, Hct 31.3 L, Plt Count 246 07/20/20 18:30: Sodium 137, Potassium 3.7, BUN 15, Creatinine 1.68 H, Glucose 281 H, Magnesium 1.6 L, Total Bilirubin 0.6, AST 13 L, ALT 16, Alkaline Phosphatase 88, Lipase 88 - Problems (1) Shortness of breath Current Visit: Yes Status: Acute Plan: Patient is 69 years of age admitted with dyspnea he apparently has stage IV lung cancer he does have nodule in the right middle lobe bilateral pleural effusions acute renal insufficiency mild normocytic anemia white count is now normal no evidence of thromboembolism by V/Q scan and lower extremity Dopplers no evidence of pneumonia no pericardial effusion noted significant history of coronary artery disease peripheral vascular disease blood pressure is elevated patient has a history of CHF all medications need to [place] [address] patient's blood pressure needs to be controlled increase Lasix oxygenation satisfactory
[2020-07-21] MEDS ORDERED: carvediloL 6.25 MG TAB PO ONE (12:36)
[2020-07-21] MEDS: FUROSEMIDE 40 MG/4 ML VIAL IV SCH (17:03)
[2020-07-21] MEDS: METHYLPREDNISOLONE 40 MG INJ IV SCH (17:03)
[2020-07-21] MEDS ORDERED: CEFTRIAXONE/SWI 1gm 1 GM/10 ML SYR IVP SCH (18:00)
[2020-07-21] MEDS ORDERED: ALPRAZOLAM 1 MG TABLET PO SCH (21:00)
[2020-07-21] MEDS ORDERED: carvediloL 6.25 MG TAB PO SCH (21:00)
[2020-07-21] MEDS ORDERED: MIRTAZAPINE 15 MG TAB PO SCH (21:00)
[2020-07-21] MEDS ORDERED: Enoxaparin 120 MG/0.8 ML SYR SQ SCH (21:00)
[2020-07-22] MEDS: METHYLPREDNISOLONE 40 MG INJ IV SCH ×2 (01:39→09:00)
[2020-07-22 05:53] LABS: Absolute Lymphocytes (CBC) 0.5 K/uL (0.7-4.9); Basophils % 0.1 % (0-1.3); Hematocrit 30.3 % (39.6-49.0); Lymphocytes % 6.4 % (15.3-44.8); MPV 8.5 fL (7.6-11.3); RBC Red Blood Cell Count 3.72 M/uL (4.33-5.43)
[2020-07-22 06:06] LABS: Bilirubin Total 0.4 mg/dL (0.2-1.0); Magnesium 2.1 mg/dL (1.8-2.4); Potassium 4.5 mmol/L (3.5-5.1); Protein, Total 6.6 g/dL (6.4-8.2)
[2020-07-22] MEDS ORDERED: carvediloL 12.5 MG TAB PO ONE (08:46)
--- NOTE | 2020-07-22 08:49 | P.PN ---
Subjective Date of Service: 07/21/20 Patient respiratory status has improved. Patient is clinically feeling better. Arrange for home oxygen. Anticipate discharge in the morning. Review of Systems 10-point ROS is otherwise unremarkable Physical Examination - Vital Signs Temperature: 97.4 F Blood Pressure: 184/91 Pulse: 62 Respirations: 20 Pulse Ox (%): 99 - Physical Exam General: Alert, In no apparent distress, Oriented x3 Respiratory: Diminished, Expiratory wheezes Cardiovascular: Regular rate/rhythm, Normal S1 S2, No murmurs Gastrointestinal: Normal bowel sounds, Soft and benign, Non-distended, No tenderness Musculoskeletal: No clubbing, No swelling, No tenderness Neurological: Sensation intact, Cranial nerves 3-12 intact - Studies Medications List Reviewed: Yes Assessment & Plan - Problems (Diagnosis) (1) Shortness of breath Current Visit: Yes Status: Acute (2) Anemia Onset Date: 04/04/18 Current Visit: No Status: Acute (3) Diabetes mellitus Onset Date: 04/04/18 Current Visit: No Status: Chronic Qualifiers: Diabetes mellitus type: type 2 Diabetes mellitus predatory animal exterminator insulin use: without predatory animal exterminator use Diabetes mellitus complication status: without complication Qualified Code(s): E11.9 - Type 2 diabetes mellitus without complications (4) Hyperlipidemia Onset Date: 01/16/14 Current Visit: No Status: Chronic Qualifiers: Hyperlipidemia type: unspecified Qualified Code(s): E78.5 - Hyperlipidemia, unspecified (5) Hypertension Onset Date: 01/16/14 Current Visit: No Status: Chronic Qualifiers: Hypertension type: essential hypertension (6) Obesity (BMI 30.0-34.9) Onset Date: 04/04/18 Current Visit: No Status: Chronic (7) Pneumonia Onset Date: 01/21/16 Current Visit: No Status: Resolved - Plan Plan: 1. Continue with anti coagulation 2. Diuresing patient 3. Management of COPD with steroids nebs and antibiotics 4. Blood pressure control 5. GI and DVT prophylax Discharge Plan: Home Plan to discharge in: Greater than 2 days - Advance Directives Does patient have a Living Will: Yes Does patient have a Durable POA for Healthcare: Yes - Code Status/Comfort Care Code Status Assessed: Yes Code Status: Full Code Critical Care: No Time Spent Managing PTS Care (In Minutes): 35
[2020-07-22] MEDS ORDERED: CLOPIDOGREL 75 MG TABLET PO SCH (09:00)
[2020-07-22] MEDS ORDERED: LOSARTAN POTASSIUM 50 MG TABLET PO SCH (09:00)
[2020-07-22] MEDS ORDERED: TORSEMIDE 20 MG TAB PO SCH (09:00)
[2020-07-22] MEDS: FUROSEMIDE 40 MG/4 ML VIAL IV SCH (09:00)
[2020-07-22] MEDS: INSULIN -REGULAR HUMAN 50 UNIT/0.5 ML ML SQ SCH ×2 (09:29→12:32)
[2020-07-22 12:47] VITALS: O2SAT 99
[2020-07-22 13:16] VITALS: BP 173/88; TEMP 97.6
[2020-07-23] MEDS ORDERED: MEDIHONEY 44 ML TOPICAL TUBE TOP SCH (09:00)
--- NOTE | 2020-07-23 09:32 | ECHO ---
HEIGHT: 6 ft 0 in WEIGHT: 250 lb 0 oz DATE OF STUDY: 07/22/[address]: Benton Pearl NP 2-DIMENSIONAL: YES M.MODE: YES DOPPLER: YES COLOR FLOW: YES TDS: PORTABLE: DEFINITY: BUBBLE STUDY: DIAGNOSIS: NON ST ELEVATION MYOCARDIAL INFARCTION CARDIAC HISTORY: CATHERIZATION: YES SURGERY: NO PROSTHETIC VALVE: NO PACEMAKER: NO MEASUREMENTS (cm) DIASTOLIC (NORMALS) SYSTOLIC (NORMALS) IVSd 1.2 (0.6-1.2) LA Diam 4.0 (1.9-4.0) LVEF 55% LVIDd 5.0 (3.5-5.7) LVIDs 3.5 (2.0-3.5) %FS 28% LVPWd 1.3 (0.6-1.2) Ao Diam 3.5 (2.0-3.7) 2 DIMENSIONAL ASSESSMENT: RIGHT ATRIUM: NORMAL LEFT ATRIUM: NORMAL RIGHT VENTRICLE: NORMAL LEFT VENTRICLE: NORMAL TRICUSPID VALVE: NORMAL MITRAL VALVE: NORMAL PULMONIC VALVE: NORMAL AORTIC VALVE: NORMAL PERICARDIAL EFFUSION: NONE AORTIC ROOT: NORMAL LEFT VENTRICULAR WALL MOTION: NORMAL DOPPLER/COLOR FLOW: NORMAL COMMENTS: TECHNICALLY DIFFICULT STUDY. GROSSLY NORMAL LEFT VENTRICULAR SIZE AND FUNCTION. TECHNOLOGIST: ROXANN WIGGINS
--- NOTE | 2020-07-24 11:07 | CON ---
Date of Consultation: 07/21/2020 Reason For Consultation: Atypical chest pain, positive troponin, hypoxia, dyspnea, and lung cancer. History Of Present Illness: Mr. Pizarro is 69. Came in mostly complaining of shortness of breath to me. He denied any chest pain. He denied any nausea, vomiting, diaphoresis, PND, orthopnea, pedal e skyler, palpitation, or syncope. He has stage IV lung cancer, on chemotherapy with shortness of breath . Allergies: HE IS ALLERGIC TO CODEINE. Review of Systems: Negative. Social History: Negative. Family History: Noncontributory. Past Medical History: Includes anxiety, neuropathy, diabetes, brain cancer, lung cancer, hypertensio n, chronic pain, CAD, and history of stents in the past. Medications: At home includes Xanax, Plavix, Lexapro, Tricor, glimepiride, losartan, metformin, Prot ulises, Senokot, Demadex, carvedilol, Deltasone, Ultram, and Remeron. Family History: Noncontributory. Review of Systems: Noncontributory. Social History: Negative. Physical Examination: Vital Signs: His blood pressure is 166/78, pulse is 59 and sinus, respiratory rate was 16. He was a febrile. HEENT: Negative. Neck: Supple with no bruit. Chest: Clear to auscultation and percussion. Cardiac: Revealed a regular rhythm and rate. No murmurs, gallops, or rubs. Abdomen: Benign. Extremities: Revealed no clubbing, cyanosis, or edema. Diagnostic Data: Glucose was 294. Chest x-ray showed mild congestive heart failure. Creatinine was 1.69. Hemoglobin was 9.8 with a white count of 13,000. D-dimer was 1561 with a negative V/Q scan. Troponin was 0.11. BNP was 18, 366. Impression And Plan: Shortness of breath. I think it is probably secondary to his lung cancer and c ongestive heart failure. I think this is the reason that his troponin is elevated, acute coronary sy ndrome, there are no EKG changes to indicate that, not having any chest pain. We would recommend doi ng a 2D echocardiogram. He had a V/Q scan that was normal. CT scan of his chest and chest x-ray katlyn wed mild volume overload, extremity venous Doppler of the legs showed no evidence of deep vein thromb osis. I will continue his present regimen, which he takes at home include Lasix. I will obtain a 2D echocardiogram. I do not think Mr. Pizarro is a candidate for any coronary intervention or invasive workup at this point considering his complicated past medical history, stage IV lung cancer, and marie motherapy. If the echocardiogram shows any significant wall motion abnormality, we will re-discuss t he case. REJI Voice ID: [id number] Report ID: [id number]
--- NOTE | 2020-07-28 03:34 | P.DS ---
Discharge Date: 07/22/20 Disposition: ROUTINE DISCHARGE Discharge Condition: GOOD Reason for Admission: Dyspnea, hypoxia - Problems (1) Shortness of breath Status: Acute (2) Anemia Onset Date: 04/04/18 Status: Acute (3) Diabetes mellitus Onset Date: 04/04/18 Status: Chronic Qualifiers: Diabetes mellitus type: type 2 Diabetes mellitus tank terminal gauger insulin use: without tank terminal gauger use Diabetes mellitus complication status: without complication Qualified Code(s): E11.9 - Type 2 diabetes mellitus without complications (4) Hyperlipidemia Onset Date: 01/16/14 Status: Chronic Qualifiers: Hyperlipidemia type: unspecified Qualified Code(s): E78.5 - Hyperlipidemia, unspecified (5) Hypertension Onset Date: 01/16/14 Status: Chronic Qualifiers: Hypertension type: essential hypertension (6) Obesity (BMI 30.0-34.9) Onset Date: 04/04/18 Status: Chronic (7) Pneumonia Onset Date: 01/21/16 Status: Resolved Brief History of Present Illness: 69-year-old male with history of diabetes mellitus type 2, hypertension, stage IV lung cancer presents emergency department for shortness of breath. Patient reports that shortness breath began last night, orthopnea. Upon arrival to the emergency department patient noted to be hypoxic, labs in the emergency department reveal white blood cell count 13.6 hemoglobin 9.8 hematocrit 31.3 D-dimer 1561 creatinine 1.68 GFR 41 glucose 281, troponin 0.11. BNP 74908 chest x-ray demonstrates mild to moderate CHF/volume overload pattern CT head brain without any acute findings CT chest without contrast due to patient's renal function demonstrates lung masses, small bilateral pleural effusions, 19 mm left axillary lymph node. There is some concern for pulmonary embolism given patient's cancer history, elevated D-dimer BNP and troponin, ultrasound lower extremities currently pending, V/Q scan ordered for the morning. Hospital Course: Patient was given antibiotic therapy. Patient's clinical symptoms are improved. Patient respiratory status is much better. Echocardiogram was normal and patient's V/Q scan was unremarkable. At this time, patient is stable for discharge with antibiotic therapy. Vital Signs/Physical Exam: Temp Pulse Resp BP Pulse Ox 97.6 F 59 18 173/88 H 97 07/22/20 12:00 07/22/20 12:00 07/22/20 12:00 07/22/20 12:00 07/22/20 12:00 General: Alert, In no apparent distress, Oriented x3 Laboratory Data at Discharge: WBC 8.40 K/uL (4.3-10.9) 07/22/20 05:27 Hgb 9.8 g/dL (13.6-17.9) L 07/22/20 05:27 Hct 30.3 % (39.6-49.0) L 07/22/20 05:27 Plt Count 212 K/uL (152-406) 07/22/20 05:27 PT 14.7 SECONDS (9.5-12.5) H 07/20/20 18:30 INR 1.28 07/20/20 18:30 APTT 24.2 SECONDS (24.3-36.9) L 07/20/20 18:30 Sodium 139 mmol/L (136-145) 07/22/20 05:27 Potassium 4.5 mmol/L (3.5-5.1) 07/22/20 05:27 BUN 30 mg/dL (7-18) H 07/22/20 05:27 Creatinine 1.89 mg/dL (0.55-1.3) H 07/22/20 05:27 Glucose 279 mg/dL (74-106) H 07/22/20 05:27 Magnesium 2.1 mg/dL (1.8-2.4) 07/22/20 05:27 Total Bilirubin 0.4 mg/dL (0.2-1.0) 07/22/20 05:27 AST 11 U/L (15-37) L 07/22/20 05:27 ALT 15 U/L (12-78) 07/22/20 05:27 Alkaline Phosphatase 78 U/L (45-117) 07/22/20 05:27 Lipase 88 U/L (73-393) 07/20/20 18:30 Home Medications: Alprazolam 1 mg PO BEDTIME 01/15/14 Clopidogrel Bisulfate [Clopidogrel] 75 mg PO DAILY 01/15/14 Glimepiride 4 mg PO BID 01/15/14 Metformin HCl 1,000 mg PO BID 01/15/14 Hydrocodone 10/APAP 325 [[place] 10/325*] 1 tab PO SEECOM PRN 08/30/18 Pantoprazole [Protonix Tab*] 40 mg PO BID 08/30/18 Senosides [Senokot*] 1 tab PO BID PRN 08/30/18 Torsemide [Demadex*] 20 mg PO DAILY 08/30/18 Escitalopram [Lexapro*] 10 mg PO DAILY 07/21/20 Fenofibrate [Tricor*] 160 mg PO DAILY 07/21/20 Losartan Potassium 25 mg PO DAILY 07/21/20 Mirtazapine [Remeron*] 15 mg PO DAILY 07/21/20 Cefdinir [Omnicef] 300 mg PO BID #14 capsule 07/22/20 Losartan Potassium [Cozaar*] 50 mg PO DAILY #30 tablet 07/22/20 carvediloL [Carvedilol] 12.5 mg PO BID #60 tablet 07/22/20 predniSONE [Deltasone] 20 mg PO BID #20 tab 07/22/20 traMADol HCL [Ultram*] 50 mg PO Q6H PRN #30 tab 07/22/20 New Medications: carvediloL [Carvedilol] 12.5 mg PO BID #60 tablet Losartan Potassium [Cozaar*] 50 mg PO DAILY #30 tablet Cefdinir [Omnicef] 300 mg PO BID #14 capsule predniSONE [Deltasone] 20 mg PO BID #20 tab traMADol HCL [Ultram*] 50 mg PO Q6H PRN #30 tab PRN Reason: Pain Scale 5-7 (Moderate) Physician Discharge Instructions: PROBLEM: Dyspnea, hypoxia GOAL: Clear understanding of disease process INSTRUCTIONS: Diet: heart healthy Activity: Fall precautions OK TO DC IV AND DC HOME FOLLOW-UP WITH PRIMARY CARE PROVIDER IN 1-2 WEEKS FOLLOW-UP WITH Pulmonary IN 1-2 WEEKS RETURN TO THE ER IF symptoms worsen CALL or TEXT DR. ROSA AT [phone] IF ANY QUESTIONS REGARDING HOSPITAL STAY. PLEASE CALL THE FLOOR AT [phone] IF ANY MEDICATION OR NURSING QUESTIONS.` Diet: AHA Activity: Fall precautions Followup: Enrique Zarco MD [ACTIVE - CAN ADMIT] - [place] Or[place]ez MD [Primary Care Provider] - Time spent managing pt's care (in minutes): 35
== END 2020-07-22 13:00 | disposition home or self-care (01) | DRG 280 ==
LOC: ER 17:56 → ERHOLD 20:58 → 2ND 07-21 07:38
PROVIDERS: ADMIT Hospitalist; ATTEND Hospitalist
DX: I11.0 Hypertensive heart disease with heart failure (principal); I21.4 Non-ST elevation (NSTEMI) myocardial infarction; J18.9 Pneumonia, unspecified organism; I50.31 Acute diastolic (congestive) heart failure; C34.90 Malignant neoplasm of unspecified part of unspecified bronchus or lung; N17.9 Acute kidney failure, unspecified; J44.0 Chronic obstructive pulmonary disease with (acute) lower respiratory infection; L97.421 Non-pressure chronic ulcer of left heel and midfoot limited to breakdown of skin; E11.621 Type 2 diabetes mellitus with foot ulcer; K21.9 Gastro-esophageal reflux disease without esophagitis; E11.51 Type 2 diabetes mellitus with diabetic peripheral angiopathy without gangrene; E11.40 Type 2 diabetes mellitus with diabetic neuropathy, unspecified; D64.9 Anemia, unspecified; I25.10 Atherosclerotic heart disease of native coronary artery without angina pectoris; E78.5 Hyperlipidemia, unspecified; E66.9 Obesity, unspecified; R09.02 Hypoxemia; Z68.30 Body mass index [BMI] 30.0-30.9, adult; Z85.841 Personal history of malignant neoplasm of brain; Z95.5 Presence of coronary angioplasty implant and graft; Z79.02 Long term (current) use of antithrombotics/antiplatelets; Z79.84 Long term (current) use of oral hypoglycemic drugs; Z79.899 Other long term (current) drug therapy; Z79.52 Long term (current) use of systemic steroids; Z89.411 Acquired absence of right great toe; Z89.422 Acquired absence of other left toe(s); Z89.421 Acquired absence of other right toe(s); Z87.891 Personal history of nicotine dependence; Z88.5 Allergy status to narcotic agent; Z20.822 Contact with and (suspected) exposure to COVID-19
CPT/HCPCS: 36415; 70450; 71045; 71250; 78582; 80048; 80053; 80076; 81003; 81015; 82550; 82553; 82565; 82947; 83036; 83690; 83735; 83880; 84484; 85025; 85379; 85610; 85730; 87040; 93005; 93306; 93970; 96372; 99251; 99285; A9540; A9558; J0456; J0696; J1650; J1940; J2920; J2930; J3360; J7030; J7050; U0003

== ENCOUNTER 2022-05-03 14:46 | Observation (INO) | payer BC, MEDICARE ==
[2022-05-03 15:19] LABS: Absolute Lymphocytes (CBC) 0.9 K/uL (0.7-4.9); Hematocrit 23.6 % (39.6-49.0); Lymphocytes % 49.2 % (15.3-44.8); MPV 7.9 fL (7.6-11.3); RBC Red Blood Cell Count 2.62 M/uL (4.33-5.43)
[2022-05-03] MEDS ORDERED: HYDROCODONE/APAP 5/325 MG TAB ONE (15:26)
[2022-05-03 15:37] LABS: Magnesium 1.6 mg/dL (1.6-2.4); Potassium 3.2 mmol/L (3.5-5.1)
[2022-05-03 15:38] LABS: Troponin High Sensitivity 112.6 pg/mL (<58.9)
--- NOTE | 2022-05-03 16:04 | RAD REPORT ---
[facility] DES[facility] CLINICAL HISTORY: CHEST PAIN. Chest tightness. Headaches COMPARISON: Chest Single View dated 07/20/2020; Chest Single View dated 04/03/2018; Chest Single View dated 08/07/2015; CHEST PA AND LAT 2 VIEW dated 06/12/2014 TECHNIQUE: Portable AP view of the chest. FINDINGS: Developing bibasilar patchy airspace opacities more pronounced on the right. Prominent mili tral interstitium. No pneumothorax. There may be a small right pleural effusion. The cardiomediastina l contours are unchanged, with stable mild cardiomegaly. IMPRESSION: Pattern of central venous congestion with developing bibasilar airspace opacities more c onfluent on the right. Superimposed pneumonia should be considered.
--- NOTE | 2022-05-03 16:59 | RAD REPORT ---
EXAM DESCRIPTION: CT - Chest For Pe Angio - 05/03/2022 4:32 pm CLINICAL HISTORY: Chest pain. Elevated troponin and d-dimer COMPARISON: 07/20/2020. TECHNIQUE: Dynamically enhanced axial 3 mm thick images of the chest were obtained during administra tion of 66 mL Isovue 370 IV contrast. Coronal and oblique reconstruction images were generated and re viewed. Exam utilizes a protocol for optimal evaluation of pulmonary arterial tree. All CT scans are performed using dose optimization technique as appropriate and may include automated exposure control or mA/KV adjustment according to patient size. FINDINGS: Pulmonary arteries show no evidence of emboli. Enlarged main pulmonary artery caliber exce eding that of the ascending aorta, which may indicate pulmonary hypertension. Mildly fusiform dilatio n of the ascending aorta measuring 4.3 cm. No mass or infiltrate in the lung parenchyma. Mild central interstitial prominence suggests central c ongestion/edema, with mild bronchovascular thickening. Right moderate and left trace pleural effusion , with underlying atelectasis. No pneumothorax. No abnormal mediastinal or hilar masses or lymphadenopathy seen. No chest wall mass or abnormal axill iary lymphadenopathy. IMPRESSION: No evidence of acute pulmonary embolus. Enlarged main pulmonary artery caliber exceeding that of the ascending aorta, which may indicate pulm onary hypertension. Mild central interstitial prominence suggests central congestion/edema. Right mod erate and left trace pleural effusion. Mildly fusiform dilation of the ascending aorta measuring 4.3 cm.
--- NOTE | 2022-05-03 17:16 | EDPHYS ---
Physician Documentation [facility] Name: Brando Pizarro Age: 71 yrs Sex: Male : 1950 Arrival Date: 05/03/2022 Time: 14:48 Bed 25 Private MD: ED Physician Wolf Silva HPI: 05/03 15:37 This 71 yrs old Unknown Male presents to ER via EMS with complaints of chest pain, ms3 shortness of breath. 15:37 71-year-old male with past medical history anxiety, diabetes, stage IV lung cancer ms3 presents for chest pain and shortness of breath that began yesterday. Patient's pain is a 6/10 and described as tightness. Patient denies nausea, vomiting. Patient endorses shortness of breath. Historical: - Allergies: 14:55 Codeine; mb9 - Home Meds: 14:55 carvedilol 6.25 mg Oral tab 1 tab every 12 hours [Active]; losartan 100 mg oral tab mb9 [Active]; furosemide 40 mg Oral tab [Active]; clopidogrel 75 mg Oral tab 1 tab once daily [Active]; atorvastatin 20 mg oral tab [Active]; fenofibrate 160 mg oral tab [Active]; metformin 500 mg oral tab [Active]; glimepiride 4 mg Oral tab 1 tab once daily for Type 2 Diabetes Mellitus [Active]; Lexapro 10 mg Oral tab [Active]; mirtazapine 15 mg Oral tab [Active]; - PMHx: 14:55 Anxiety; Diabetes - NIDDM; Cancer; brain cancer; stage 4 lung cancer; Hypertension; mb9 Chronic pain; neuropathy; - Immunization history:: Adult Immunizations up to date. - Social history:: Smoking status: Patient/guardian denies using tobacco. ROS: 15:37 Constitutional: Negative for fever, and chills. ENT: Negative for injury, pain, and ms3 discharge, Neck: Negative for injury, pain, and swelling. 15:37 MS/Extremity: Negative for injury and deformity, Skin: Negative for injury, rash, and discoloration. 15:37 Cardiovascular: Positive for chest pain. 15:37 Respiratory: Positive for shortness of breath. 15:37 All other systems are negative. Exam: 15:37 Constitutional: This is a well developed, well nourished patient who is awake, alert, ms3 and in no acute distress. Head/Face: Normocephalic, atraumatic. Neck: Trachea midline, no cervical lymphadenopathy. Supple, full range of motion without nuchal rigidity, or vertebral point tenderness. No Meningismus. Chest/axilla: Normal chest wall appearance and motion. Nontender with no deformity. 15:37 Cardiovascular: Regular rate and rhythm with a normal S1 and S2. No gallops, murmurs, or rubs. Normal PMI, no JVD. No pulse deficits. Respiratory: Lungs have equal breath sounds bilaterally, clear to auscultation and percussion. No rales, rhonchi or wheezes noted. No increased work of breathing, no retractions or nasal flaring. Abdomen/GI: Soft, non-tender, with normal bowel sounds. No distension or tympany. No guarding or rebound. No evidence of tenderness throughout. Skin: Warm, dry with normal turgor. Normal color with no rashes, no lesions, and no evidence of cellulitis. MS/ Extremity: Pulses equal, no cyanosis. Neurovascular intact. Full, normal range of motion. 15:37 Cardiovascular: 15:37 ECG was reviewed by the Attending Physician. Vital Signs: 14:52 BP 139 / 67; Pulse 72; Resp 18; Temp 97.1(O); Pulse Ox 100% ; Weight 111.13 kg; Height mb9 6 ft. 0 in. (182.88 cm); Pain 9/10; 15:18 BP 137 / 61; Pulse 67; Resp 18; Pulse Ox 98% on R/A; mb9 16:46 BP 155 / 70; Pulse 66; Resp 20; Pulse Ox 96% on R/A; mb9 18:57 BP 147 / 65; Pulse 79; Resp 19; Pulse Ox 100% on R/A; mb9 20:12 BP 132 / 55; Pulse 72; Resp 16; Pulse Ox 96% on R/A; mb9 14:52 Body Mass Index 33.23 (111.13 kg, 182.88 cm) mb9 MDM: 14:54 Patient medically screened. ms3 15:37 Differential diagnosis: abnormal EKG, acute myocardial infarction, coronary artery ms3 disease pulmonary embolus. 17:16 HEART Score: History: Slightly Suspicious (0), ECG: Non specific repolarization ms3 disturbance / LBTB / PM (1), Age: > or = 65 years (2), Risk Factors: 1 or 2 risk factors (1), Troponin: > 1 and < 3 x normal limit (1), Total Score = 5. 17:17 The patient was given aspirin in the Emergency Department. Data reviewed: vital signs, ms3 nurses notes, lab test result(s), EKG, radiologic studies, and as a result, I will admit patient. Consideration of Admission/Observation Patient was admitted/placed on observation. I considered the following discharge prescriptions or medication management in the emergency department Medications were administered in the Emergency Department. See MAR. Independent interpretation of the following test(s) in the Emergency Department EKG: See my EKG interpretation above lunchroom monitor: rate is 66 beats/min, Rhythm is normal sinus rhythm, regular, with no ectopy, Interpretation: normal rate, normal rhythm. Historians other than the Patient: EMS: [facility]. Counseling: I had a detailed discussion with the patient and/or guardian regarding: the historical points, exam findings, and any diagnostic results supporting the discharge/admit diagnosis, lab results, radiology results, the need for further work-up and treatment in the hospital. ED course: Discussed need for admission with patient. Patient understands agrees with plan. Discussed case with Dr. Acevedo he accepts patient. 05/03 14:55 Order name: Basic Metabolic Panel; Complete Time: 15:42 ms3 05/03 14:55 Order name: CBC with Diff; Complete Time: 15:27 05/03 14:55 Order name: D-Dimer; Complete Time: 15:27 05/03 14:55 Order name: Magnesium; Complete Time: 15:42 ms3 05/03 14:55 Order name: NT PRO-BNP; Complete Time: 15:42 ms3 05/03 14:55 Order name: Troponin HS; Complete Time: 15:42 ms05/03 14:55 Order name: XRAY Chest (1 view); Complete Time: 16:32 ms05/03 14:55 Order name: EKG; Complete Time: 14:56 ms3 05/03 15:27 Order name: Chest For PE Angio CT 05/03 16:59 Order name: CT; Complete Time: 17:07 EDMS 05/03 17:16 Order name: SARS RAPID 05/03 17:45 Order name: SARS-COV-2 Antigen Rapid; Complete Time: 17:51 EDMS 05/03 14:55 Order name: Cardiac monitoring; Complete Time: 14:59 ms3 05/03 14:55 Order name: EKG - Nurse/Tech; Complete Time: 14:59 ms3 05/03 14:55 Order name: IV Saline Lock; Complete Time: 14:59 ms3 05/03 14:55 Order name: Labs collected and sent; Complete Time: 15:13 ms3 05/03 14:55 Order name: O2 Per Protocol; Complete Time: 14:59 ms3 05/03 14:55 Order name: O2 Sat Monitoring; Complete Time: 14:59 ms3 EC:37 Rate is 72 beats/min. Rhythm is regular. Left axis deviation noted. SC interval is ms3 normal. QRS interval is normal. Clinical impression: NSR w/ Non-specific ST/T Changes. Interpreted by me. Reviewed by me. Administered Medications: 15:23 Drug: HYDROcodone-acetaminophen 5 mg-325 mg 1 tabs Route: PO; mb9 17:16 Follow up: Response: No adverse reaction mb9 17:22 Not Given (Patient Refused; pt refused due to ulcerss): Aspirin Chewable Tablet 324 mg mb9 PO once; 81 mg tablets x 4 Disposition Summary: 05/03/22 17:15 Hospitalization Ordered Hospitalization Status: Observation ms3 Provider: Rodolfo Acevedo ms3 Location: Telemetry/MedSurg (observation) ms3 Condition: Stable ms3 Problem: new ms3 Symptoms: are unchanged ms3 Bed/Room Type: Standard ms3 Room Assignment: 223(05/03/22 19:35) mw Diagnosis - Chest pain, unspecified ms3 - Elevated troponin ms3 - Lung Cancer ms3 Forms: - Medication Reconciliation Form ms3 - SBAR form ms3 Signatures: Dispatcher [employer] EDMS Shanti Noe RN RN Benton Martinez, PATRICK-C PATRICK-Wolf Ashraf DO DO ms3 Lian Viveros RN RN mb9 Corrections: (The following items were deleted from the chart) 19:35 17:15 ms3 mw
--- NOTE | 2022-05-03 17:16 | ER ---
Nurse's Notes [facility] Name: Brando Pizarro Age: 71 yrs Sex: Male : 1950 Arrival Date: 05/03/2022 Time: 14:48 Bed 25 Private MD: Diagnosis: Chest pain, unspecified;Elevated troponin;Lung Cancer Presentation: 05/03 14:52 Chief complaint: EMS states: "pt has been feeling extra crappy, chest tightness, and mb9 bad headache the past few days.". Coronavirus screen: Vaccine status: Patient reports receiving the 2nd dose of the covid vaccine. Ebola Screen: No symptoms or risks identified at this time. Initial Sepsis Screen: Does the patient meet any 2 criteria? No. Patient's initial sepsis screen is negative. Does the patient have a suspected source of infection? No. Patient's initial sepsis screen is negative. Risk Assessment: Do you want to hurt yourself or someone else? Patient reports no desire to harm self or others. Onset of symptoms was May 01, 2022. 14:52 Method Of Arrival: EMS: [facility] mb9 14:52 Acuity: YUMIKO 3 mb9 Historical: - Allergies: 14:55 Codeine; mb9 - Home Meds: 14:55 carvedilol 6.25 mg Oral tab 1 tab every 12 hours [Active]; losartan 100 mg oral tab mb9 [Active]; furosemide 40 mg Oral tab [Active]; clopidogrel 75 mg Oral tab 1 tab once daily [Active]; atorvastatin 20 mg oral tab [Active]; fenofibrate 160 mg oral tab [Active]; metformin 500 mg oral tab [Active]; glimepiride 4 mg Oral tab 1 tab once daily for Type 2 Diabetes Mellitus [Active]; Lexapro 10 mg Oral tab [Active]; mirtazapine 15 mg Oral tab [Active]; - PMHx: 14:55 Anxiety; Diabetes - NIDDM; Cancer; brain cancer; stage 4 lung cancer; Hypertension; mb9 Chronic pain; neuropathy; - Immunization history:: Adult Immunizations up to date. - Social history:: Smoking status: Patient/guardian denies using tobacco. Screenin:18 [facility] ED Fall Risk Assessment (Adult) History of falling in the last 3 months, mb9 including since admission No falls in past 3 months (0 pts) Confusion or Disorientation No (0 pts) Intoxicated or Sedated No (0 pts) Impaired Gait No (0 pts) Mobility Assist Device Used No (0 pt) Altered Elimination No (0 pt) Score/Fall Risk Level 0 - 2 = Low Risk Oriented to surroundings, Maintained a safe environment, Educated pt \\T\\ family on fall prevention, incl call for assistance when getting out of bed. Abuse screen: Denies threats or abuse. Nutritional screening: No deficits noted. Tuberculosis screening: No symptoms or risk factors identified. Assessment: 15:15 General: Appears uncomfortable, Behavior is calm, cooperative. Pain: Complains of pain mb9 in chest and head Pain currently is 9 out of 10 on a pain scale. Quality of pain is described as throbbing, Pain began 2-3 days ago. Is continuous. Neuro: Serrano Agitation-Sedation Scale (RASS): 0 - Alert and Calm Level of Consciousness is awake, alert, obeys commands, Oriented to person, place, time, situation, Appropriate for age Reports headache. Cardiovascular: Heart tones S1 S2 present Capillary refill < 3 seconds is brisk Patient's skin is warm and dry. Respiratory: Reports shortness of breath on exertion Airway is patent Respiratory effort is even, unlabored, Respiratory pattern is regular, symmetrical, Breath sounds are clear bilaterally. GI: Abdomen is round Bowel sounds present X 4 quads. Abd is soft and non tender X 4 quads. Reports diarrhea. : No signs and/or symptoms were reported regarding the genitourinary system. EENT: No signs and/or symptoms were reported regarding the EENT system. Derm: Skin is intact, Skin is dry, Skin is normal, Skin temperature is warm. Musculoskeletal: Range of motion: intact in all extremities. 16:46 Reassessment: No changes from previously documented assessment. Patient and/or family mb9 updated on plan of care and expected duration. Pain level reassessed. Patient is alert, oriented x 3, equal unlabored respirations, skin warm/dry/pink. 18:58 Reassessment: No changes from previously documented assessment. Patient and/or family mb9 updated on plan of care and expected duration. Pain level reassessed. Patient is alert, oriented x 3, equal unlabored respirations, skin warm/dry/pink. Patient states feeling better. Patient states symptoms have improved. 20:13 Reassessment: No changes from previously documented assessment. Patient and/or family mb9 updated on plan of care and expected duration. Pain level reassessed. Patient is alert, oriented x 3, equal unlabored respirations, skin warm/dry/pink. Patient denies pain at this time. Patient states feeling better. Patient states symptoms have improved. 20:13 Reassessment: attempted to call report to admitting nurse. mb9 Vital Signs: 14:52 BP 139 / 67; Pulse 72; Resp 18; Temp 97.1(O); Pulse Ox 100% ; Weight 111.13 kg; Height mb9 6 ft. 0 in. (182.88 cm); Pain 9/10; 15:18 BP 137 / 61; Pulse 67; Resp 18; Pulse Ox 98% on R/A; mb9 16:46 BP 155 / 70; Pulse 66; Resp 20; Pulse Ox 96% on R/A; mb9 18:57 BP 147 / 65; Pulse 79; Resp 19; Pulse Ox 100% on R/A; mb9 20:12 BP 132 / 55; Pulse 72; Resp 16; Pulse Ox 96% on R/A; mb9 14:52 Body Mass Index 33.23 (111.13 kg, 182.88 cm) mb9 ED Course: 14:48 Patient arrived in ED. mb9 14:52 Lian Viveros, RN is Primary Nurse. mb9 14:52 Arm band placed on. mb9 14:52 Placed in gown. Bed in low position. Call light in reach. Side rails up X 1. Client mb9 placed on continuous cardiac and pulse oximetry monitoring. NIBP monitoring applied. casket coverer on. 14:54 Wolf Silva DO is Attending Physician. ms3 14:55 Triage completed. mb9 14:58 EKG done, by ED staff, reviewed by Wolf Silva DO. Maintain EMS IV. Dressing intact. mb9 Good blood return noted. Site clean \\T\\ dry. Gauge \\T\\ site: 20 gauge right AC. 15:13 Basic Metabolic Panel Sent. mb9 15:13 Troponin HS Sent. mb9 15:13 NT PRO-BNP Sent. mb9 15:13 Magnesium Sent. mb9 15:13 D-Dimer Sent. mb9 15:13 CBC with Diff Sent. mb9 15:14 XRAY Chest (1 view) In Process Unspecified. EDMS 15:18 No provider procedures requiring assistance completed. mb9 17:14 Rodolfo Acevedo MD is Hospitalizing Provider. ms3 17:27 SARS RAPID Sent. mb9 20:13 Patient admitted, IV remains in place. mb9 Administered Medications: 15:23 Drug: HYDROcodone-acetaminophen 5 mg-325 mg 1 tabs Route: PO; mb9 17:16 Follow up: Response: No adverse reaction mb9 17:22 Not Given (Patient Refused; pt refused due to ulcerss): Aspirin Chewable Tablet 324 mg mb9 PO once; 81 mg tablets x 4 Medication: 15:18 VIS not applicable for this client. mb9 Outcome: 17:15 Decision to Hospitalize by Provider. ms3 20:30 Admitted to Med/surg kd3 20:30 Condition: stable 20:30 Discharge instructions given to patient, Instructed on the need for admit, Demonstrated understanding of instructions. 20:55 Patient left the ED. mb9 Signatures: Dispatcher [employer] EDMS Wolf Silva DO DO ms3 Martha Ham, RN RN kd3 Lian Viveros RN RN mb9
[2022-05-03 17:44] LABS: SARS-CoV-2 Antigen Rapid Res Negative (Negative)
--- NOTE | 2022-05-03 18:36 | EKG ---
Test Date: 2022-05-03 Test Time: 14:48:17 Negative Developer: SHAKA MEASUREMENT RESULTS: Intervals: Rate: 72 TN: 96 QRSD: 126 QT: 410 QTc: 448 [place]: P: TN: 96 QRS: -53 T: 237 INTERPRETIVE STATEMENTS: Sinus rhythm with short TN Left axis deviation Nonspecific intraventricular block Inferior infarct, age undetermined Cannot rule out Anteroseptal infarct, age undetermined T wave abnormality, consider lateral ischemia Abnormal ECG Electronically Signed On 05-03-22 18:36:27 SYBASE DEVELOPER by Jesse Hdz
[2022-05-03] MEDS ORDERED: ONDANSETRON 4 MG/2 ML VIAL IV PRN (20:31)
--- NOTE | 2022-05-03 20:55 | P.HP ---
Certification for Inpatient Patient admitted to: Observation With expected LOS: <2 Midnights Patient will require the following post-hospital care: None Practitioner: I am a practitioner with admitting privileges, knowledge of patient current condition, hospital course, and medical plan of care. Services: Services provided to patient in accordance with Admission requirements found in Title 42 Section 412.3 of the Code of Federal Regulations Patient History Date of Service: 05/03/22 History of Present Illness: 71-year-old male with history of stage IV lung cancer on chemotherapy, insulin- dependent diabetes, hypertension, chronic pain, chronic diastolic CHF, hyperlipidemia, PAD presents to the emergency department for chest pain. He reports intermittent chest pain over the course of the last 2 to 3 days described as tightness with associated shortness of breath. He also reports 8 pound weight gain in the course of the last 1 week as well as increasing dyspnea/dyspnea on exertion. He was evaluated here in the emergency department his labs were significant for leukopenia white blood cell count 1.9 hemoglobin 8.2 D-dimer 1459 troponin 112.6 BNP 15,673 creatinine 1.96 GFR 36, baseline creatinine appears to be around 1.7. Patient last had chemotherapy on 04/22/2022. He had a CT PE protocol performed in the emergency department which was negative for pulmonary embolism but did show enlarged main pulmonary artery caliber exceeding that of a sending artery which may indicate pulmonary hypertension. Mild central interstitial prominence suggesting central conge stion/edema. Right moderate and left trace pleural effusion. Mildly fusiform dilation of the ascending aorta measuring 4.3 cm. ED provider wishes to admit for ACS rule out/chest pain/dyspnea with elevated troponin. Allergies codeine Allergy (Mild, Verified 08/31/18 02:41) Nausea/Vomiting cetuximab Allergy (Verified 08/31/18 02:41) Nausea/Vomiting Home Medications: Alprazolam 1 mg PO BEDTIME 01/15/14 Clopidogrel Bisulfate [Clopidogrel] 75 mg PO DAILY 01/15/14 Glimepiride 4 mg PO BID 01/15/14 Metformin HCl 1,000 mg PO BID 01/15/14 Hydrocodone 10/APAP 325 [[place] 10/325*] 1 tab PO SEECOM PRN 08/30/18 Pantoprazole [Protonix Tab*] 40 mg PO BID 08/30/18 Senosides [Senokot*] 1 tab PO BID PRN 08/30/18 Torsemide [Demadex*] 20 mg PO DAILY 08/30/18 Escitalopram [Lexapro*] 10 mg PO DAILY 07/21/20 Fenofibrate [Tricor*] 160 mg PO DAILY 07/21/20 Losartan Potassium 25 mg PO DAILY 07/21/20 Mirtazapine [Remeron*] 15 mg PO DAILY 07/21/20 Cefdinir [Omnicef] 300 mg PO BID #14 capsule 07/22/20 Losartan Potassium [Cozaar*] 50 mg PO DAILY #30 tablet 07/22/20 carvediloL [Carvedilol] 12.5 mg PO BID #60 tablet 07/22/20 predniSONE [Deltasone] 20 mg PO BID #20 tab 07/22/20 traMADol HCL [Ultram*] 50 mg PO Q6H PRN #30 tab 07/22/20 - Past Medical/Surgical History Diabetic: Yes -: Diabetes mellitus type 2, [id number] -: Squamous cell head/neck cancer -: Hypertension -: Hyperlipidemia -: GERD -: Peripheral vascular disease -: Carotid arterial disease -: Stage IV lung cancer -: neuropathy -: Chronic diastolic congestive heart failure -: CKD 3 -: carotid artery stent -: knee sx -: right great toe amputation 09/30/15 -: left 2nd toe amputation -: right 4th toe amputation -: left 5th toe amputation Psychosocial/ Personal History: Patient is - Family History Mother -: Diabetes Father -: Other (see notes) Notes: heart failure - Social History Smoking Status: Former smoker Alcohol use: No CD- Drugs: No Caffeine use: Yes Place of Residence: Home Review of Systems 10-point ROS is otherwise unremarkable Respiratory: Cough, Shortness of Breath, SOB with Excertion Cardiovascular: Chest Pain, Edema Physical Examination - Physical Exam General: Alert, In no apparent distress, Oriented x3 HEENT: Atraumatic, PERRLA, Mucous membr. moist/pink, EOMI, Sclerae nonicteric Neck: Supple, 2+ carotid pulse no bruit, No LAD, Without JVD or thyroid abnormality Respiratory: Diminished, Crackles/rales Cardiovascular: Regular rate/rhythm, Normal S1 S2, Edema (Trace lower extremity edema) Capillary refill: <2 Seconds Gastrointestinal: Normal bowel sounds, No tenderness Musculoskeletal: No tenderness Integumentary: No rashes Neurological: Normal speech, Normal strength at 5/5 x4 extr, Normal tone, Normal affect - Studies Laboratory Data (last 24 hrs) 05/03/22 15:10: WBC 1.90 L*, Hgb 8.2 L, Hct 23.6 L, Plt Count 186 05/03/22 15:10: Sodium 137, Potassium 3.2 L, BUN 22 H, Creatinine 1.96 H, Glucose 67 L, Magnesium 1.6 Assessment and Plan - Plan Assessment: Chest pain rule out ACS Acute on chronic diastolic ingestive heart failure JONATHAN on CKD 3 Diabetes mellitus type 2insulin-dependent Hypertension PAD Hyperlipidemia Leukopenia Stage IV lung cancer on chemotherapy Plan: Chest pain rule out ACS Initial high-sensitivity troponin mildly elevated, similar elevations during previous admission. Trend troponin, monitor on telemetry. Continue aspirin, statin, beta-arminda. Cardiology consult in place. Patient chest pain-free at this time. Possibility related to acute on chronic diastolic congestive heart failure. Echocardiogram ordered. Acute on chronic diastolic ingestive heart failure Patient reports 8 pound weight gain over the course last 1 week, increasing dyspnea. Mild worsening in renal function as well noted. Denies changes in his home medications recently he is currently on Lasix 40 mg p.o. twice daily, torsemide 20 mg once daily. We will continue with IV diuresis, obtain echocardiogram. Appreciate further input from cardiology/nephrology. Currently on room air. JONATHAN on CKD 3 Continue with diuresis, possibly CRS. Repeat BMP in the morning, nephrology consulted. Diabetes mellitus type 2insulin-dependent ACHS Accu-Chek, sliding scale insulin. Patient recently placed on Lantus 15 units daily in addition to his oral agents. Hypertension PAD Hyperlipidemia Continue home medications Leukopenia Likely secondary to IV chemotherapy, last chemo 04/22/2022 Stage IV lung cancer on chemotherapy Outpatient management. DVT PPX: Heparin subcu Code status: Full Discharge Plan: Home Plan to discharge in: 24 Hours - Advance Directives Does patient have a Living Will: Yes Does patient have a Durable POA for Healthcare: Yes - Code Status/Comfort Care Code Status Assessed: Yes (Full code) Critical Care: No Time Spent Managing Pts Care (In Minutes): 70
[2022-05-03] MEDS: INSULIN -REGULAR HUMAN 50 UNIT/0.5 ML ML SQ SCH (21:00)
[2022-05-03] MEDS: HEPARIN 5000 UNIT/ML 1 ML VIAL SQ SCH (21:00)
[2022-05-04] MEDS ORDERED: FUROSEMIDE 40 MG/4 ML VIAL IV ONE (00:07)
[2022-05-04 00:16] LABS: Specific Gravity 1.029 (1.005-1.030); Urine Bacteria None Seen /HPF (<20); Urine Bilirubin NEGATIVE (Negative); Urine Blood Negative (Negative); Urine Clarity Clear (Clear); Urine Color Light-Yellow (Yellow); Urine Glucose NEGATIVE (Negative); Urine Protein TRACE (Negative); Urine RBC None Seen /HPF (None Seen); Urine Urobilinogen Normal (Normal); Urine pH 5.5 (5.0-7.0)
[2022-05-04 03:41] LABS: Absolute Lymphocytes (CBC) 0.9 K/uL (0.7-4.9); Hematocrit 24.8 % (39.6-49.0); Lymphocytes % 52.8 % (15.3-44.8); MCV 89.9 fL (80-100); MPV 8.3 fL (7.6-11.3); RBC Red Blood Cell Count 2.75 M/uL (4.33-5.43)
[2022-05-04 04:04] LABS: Potassium 3.3 mmol/L (3.5-5.1); Thyroid Stimulating Hormone 1.48 uIU/mL (0.358-3.740)
[2022-05-04 04:05] LABS: Troponin High Sensitivity 81.8 pg/mL (<58.9)
[2022-05-04 04:34] LABS: Blood Morphology Comment NOTED (NOT SEEN); Platelet Estimate ADEQ; Polychromasia 2+; White Blood Cell Scan OK (OK)
[2022-05-04] MEDS ORDERED: ALPRAZOLAM 1 MG TABLET PO PRN (04:35)
[2022-05-04] MEDS ORDERED: SENOSIDES 8.6 MG TAB PO PRN (04:35)
[2022-05-04] MEDS ORDERED: HYDROCODONE/APAP 10/325 TAB PO PRN ×2 (04:35→12:00)
[2022-05-04] MEDS ORDERED: TRAMADOL HCL 50 MG TAB PO PRN (04:35)
[2022-05-04] MEDS: INSULIN -REGULAR HUMAN 50 UNIT/0.5 ML ML SQ SCH ×4 (07:30→21:00)
[2022-05-04] MEDS: MIRTAZAPINE 15 MG TAB PO SCH (08:40)
[2022-05-04] MEDS: CLOPIDOGREL 75 MG TABLET PO SCH (08:40)
[2022-05-04] MEDS: ATORVASTATIN 20 MG TAB PO SCH (08:41)
[2022-05-04] MEDS: FENOFIBRATE 160 MG TAB PO SCH (08:41)
[2022-05-04] MEDS: ESCITALOPRAM 20 MG TAB PO SCH (08:41)
[2022-05-04] MEDS: carvediloL 12.5 MG TAB PO SCH ×2 (08:42→21:34)
[2022-05-04] MEDS: FUROSEMIDE 40 MG/4 ML VIAL IV SCH ×2 (08:42→16:33)
[2022-05-04] MEDS: ASPIRIN EC 81 MG TAB PO SCH (08:44)
[2022-05-04] MEDS: HEPARIN 5000 UNIT/ML 1 ML VIAL SQ SCH ×3 (08:44→21:35)
--- NOTE | 2022-05-04 12:27 | P.CNS ---
Date of Consult: 05/04/22 Reason for Consult: Shortness of breath Chief Complaint: Shortness of breath History of Present Illness: Patient is 71 years of age stage IV lung cancer on chemotherapy does have diabetes hypertension diastolic heart failure came in with shortness of breath chest discomfort having some chest discomfort over the past 2 or 3 days associated with weight gain lower extremity edema dyspnea on exertion the same symptoms before was admitted treated with diuretics doing better so found to have a pleural effusion on the right side [place] any fever chills Allergies codeine Allergy (Mild, Verified 08/31/18 02:41) Nausea/Vomiting cetuximab Allergy (Verified 08/31/18 02:41) Nausea/Vomiting Home Medications: Alprazolam 1 mg PO BEDTIME PRN 01/15/14 Clopidogrel Bisulfate [Clopidogrel] 75 mg PO DAILY 01/15/14 Glimepiride 4 mg PO BID 01/15/14 Metformin HCl 500 mg PO BID 01/15/14 Hydrocodone 10/APAP 325 [[place] 10/325*] 1 tab PO SEECOM PRN 08/30/18 Senosides [Senokot*] 1 tab PO BID PRN 08/30/18 Torsemide [Demadex*] 20 mg PO DAILY 08/30/18 Escitalopram [Lexapro*] 10 mg PO DAILY 07/21/20 Fenofibrate [Tricor*] 160 mg PO DAILY 07/21/20 Mirtazapine [Remeron*] 15 mg PO DAILY 07/21/20 traMADol HCL [Ultram*] 50 mg PO Q6H PRN #30 tab 07/22/20 Atorvastatin Calcium 20 mg PO DAILY 05/03/22 Furosemide 40 mg PO BID 05/03/22 Insulin Glargine,Hum.rec.anlog [Lantus Solostar] 10 units SQ DAILY 05/03/22 Losartan Potassium [Cozaar*] 100 mg PO DAILY 05/03/22 carvediloL [Carvedilol] 6.25 mg PO BID 05/03/22 - Past Medical/Surgical History Diabetic: Yes -: Diabetes mellitus type 2, [id number] -: Squamous cell head/neck cancer -: Hypertension -: Hyperlipidemia -: GERD -: Peripheral vascular disease -: Carotid arterial disease -: Stage IV lung cancer -: neuropathy -: Chronic diastolic congestive heart failure -: CKD 3 -: carotid artery stent -: knee sx -: right great toe amputation 09/30/15 -: left 2nd toe amputation -: right 4th toe amputation -: left 5th toe amputation Psychosocial/ Personal History: Patient is - Family History Mother Medical History: Diabetes Father Medical History: Other (see notes) Notes: heart failure - Social History Smoking Status: Former smoker Alcohol use: Yes CD- Drugs: No Caffeine use: Yes Place of Residence: Home Review of Systems 10-point ROS is otherwise unremarkable Physical Examination Temp Pulse Resp BP Pulse Ox 97.7 F 84 18 146/77 H 96 05/04/22 08:00 05/04/22 08:42 05/04/22 08:00 05/04/22 08:42 05/04/22 08:00 General: Alert, Oriented x3 HEENT: Atraumatic Neck: Supple Respiratory: Clear to auscultation bilaterally Cardiovascular: No edema, Regular rate/rhythm Gastrointestinal: Normal bowel sounds, Soft and benign Laboratory Data (last 24 hrs) 05/03/22 15:10: WBC 1.90 L*, Hgb 8.2 L, Hct 23.6 L, Plt Count 186 05/03/22 15:10: Sodium 137, Potassium 3.2 L, BUN 22 H, Creatinine 1.96 H, Glucose 67 L, Magnesium 1.6 - Problems (1) Shortness of breath Current Visit: No Status: Acute Plan: Patient is 71 years of age with a history of stage IV lung cancer status postchemotherapy admitted with shortness of breath volume overload lower extremity edema he does take torsemide at home doing much better on IV Lasix chest x-ray CT scan shows a right-sided pleural effusion patient is neutropenic from his chemotherapy troponins are mildly elevated his vital signs have improved high risk for coronary artery disease agree with cardiology consult probably needs a noninvasive stress test prior to discharge mornings have declined a little
--- NOTE | 2022-05-04 14:32 | ECHO ---
HEIGHT: 6 ft 0 in WEIGHT: 251 lb 0 oz DATE OF STUDY: 05/04/[address]: Benton Pearl NP 2-DIMENSIONAL: YES M.MODE: YES DOPPLER: YES COLOR FLOW: YES TDS: PORTABLE: YES DEFINITY: BUBBLE STUDY: DIAGNOSIS: ELEVATED TROPONIN, CHEST PAIN, SHORTNESS OF BREATH CARDIAC HISTORY: CATHERIZATION: YES SURGERY: NO PROSTHETIC VALVE: NO PACEMAKER: NO MEASUREMENTS (cm) DIASTOLIC (NORMALS) SYSTOLIC (NORMALS) IVSd 1.2 (0.6-1.2) LA Diam 2.9 (1.9-4.0) LVEF 44% LVIDd 4.6 (3.5-5.7) LVIDs 3.6 (2.0-3.5) %FS 22% LVPWd 1.2 (0.6-1.2) Ao Diam 2.5 (2.0-3.7) 2 DIMENSIONAL ASSESSMENT: RIGHT ATRIUM: NORMAL LEFT ATRIUM: NORMAL RIGHT VENTRICLE: NORMAL LEFT VENTRICLE: NOT WELL SEEN TRICUSPID VALVE: NORMAL MITRAL VALVE: THICKENED MITRAL VALVE WITH MILD MITRAL REGURGITATION PULMONIC VALVE: NOT WELL SEEN AORTIC VALVE: NORMAL PERICARDIAL EFFUSION: SMALL AORTIC ROOT: NORMAL LEFT VENTRICULAR WALL MOTION: UNABLE TO EVALUATE DUE TO POOR WINDOWS DOPPLER/COLOR FLOW: SEE BELOW COMMENTS: 1. VERY LIMITED STUDY DUE TO POOR WINDOWS 2. LEFT VENTRICULAR EJECTION FRACTION IS DEPRESSED - 40%. RECOMMEND CONTRAST ECHOCARDIOGRAM TO BETTER EVALUATE. 3. MILD MITRAL REGURGITATION 4. VERY POOR WINDOWS. TECHNOLOGIST: ROXANN MEHTA
--- NOTE | 2022-05-04 16:32 | P.CNS ---
Date of Consult: 05/04/22 Reason for Consult: JONATHAN Requesting Physician: Domenico Danielson Chief Complaint: Shortness of breath History of Present Illness: 71-year-old male with history of stage IV lung cancer on chemotherapy, insulin- dependent diabetes, hypertension, chronic pain, chronic diastolic CHF, hyperlipidemia, PAD presents to the emergency department for chest pain. He reports intermittent chest pain over the course of the last 2 to 3 days described as tightness with associated shortness of breath. He also reports 8 pound weight gain in the course of the last 1 week as well as increasing dyspnea/dyspnea on exertion. He was evaluated here in the emergency department his labs were significant for leukopenia white blood cell count 1.9 hemoglobin 8.2 D-dimer 1459 troponin 112.6 BNP 15,673 creatinine 1.96 GFR 36, baseline creatinine appears to be around 1.7. Patient last had chemotherapy on 04/22/2022. He had a CT PE protocol performed in the emergency department which was negative for pulmonary embolism but did show enlarged main pulmonary artery caliber exceeding that of a sending artery which may indicate pulmonary hypertension. Mild central interstitial prominence suggesting central congestion/edema. Right moderate and left trace pleural effusion. Mildly fusiform dilation of the ascending aorta measuring 4.3 cm. ED provider wishes to admit for ACS rule out/chest pain/dyspnea with elevated troponin. 15:37 This 71 yrs old Unknown Male presents to ER via EMS with complaints of chest pain, ms3 shortness of breath. 15:37 71-year-old male with past medical history anxiety, diabetes, stage IV lung cancer ms3 presents for chest pain and shortness of breath that began yesterday. Patient's pain is a 6/10 and described as tightness. Patient denies nausea, vomiting. Patient endorses shortness of breath. No NSAIDs. No difficulty with urination. He is feeling better since the admission. Allergies codeine Allergy (Mild, Verified 08/31/18 02:41) Nausea/Vomiting cetuximab Allergy (Verified 08/31/18 02:41) Nausea/Vomiting Home medications list reviewed: Yes Home Medications: Alprazolam 1 mg PO BEDTIME PRN 01/15/14 Clopidogrel Bisulfate [Clopidogrel] 75 mg PO DAILY 01/15/14 Glimepiride 4 mg PO BID 01/15/14 Metformin HCl 500 mg PO BID 11/11/14 Hydrocodone 10/APAP 325 [[place] 10/325*] 1 tab PO SEECOM PRN 08/30/18 Senosides [Senokot*] 1 tab PO BID PRN 08/30/18 Torsemide [Demadex*] 20 mg PO DAILY 08/30/18 Escitalopram [Lexapro*] 10 mg PO DAILY 07/21/20 Fenofibrate [Tricor*] 160 mg PO DAILY 07/21/20 Mirtazapine [Remeron*] 15 mg PO DAILY 07/21/20 traMADol HCL [Ultram*] 50 mg PO Q6H PRN #30 tab 07/22/20 Atorvastatin Calcium 20 mg PO DAILY 05/03/22 Furosemide 40 mg PO BID 05/03/22 Insulin Glargine,Hum.rec.anlog [Lantus Solostar] 10 units SQ DAILY 05/03/22 Losartan Potassium [Cozaar*] 100 mg PO DAILY 05/03/22 carvediloL [Carvedilol] 6.25 mg PO BID 05/03/22 - Past Medical/Surgical History Diabetic: Yes -: DM II with Polyneuropathy -: Squamous cell head/neck cancer -: Hypertension -: Hyperlipidemia -: GERD -: PAD -: Carotid arterial disease -: Stage IV lung cancer -: CKD III (Dr. Gandara/ Dr. Haque) -: Chronic diastolic congestive heart failure -: carotid artery stent -: knee sx -: right great toe amputation 09/30/15 -: left 2nd toe amputation -: right 4th toe amputation -: left 5th toe amputation Psychosocial/ Personal History: Patient is - Family History Mother Medical History: Diabetes Father Medical History: Other (see notes) Notes: heart failure - Social History Smoking Status: Former smoker Alcohol use: Yes CD- Drugs: No Caffeine use: Yes Place of Residence: Home Review of Systems 10-point ROS is otherwise unremarkable General: Weakness Respiratory: SOB with Excertion Neurological: Weakness Physical Examination Temp Pulse Resp BP Pulse Ox 97.7 F 68 18 140/69 96 05/04/22 12:00 05/04/22 12:00 05/04/22 12:00 05/04/22 12:00 05/04/22 12:00 General: In no apparent distress, Cooperative HEENT: Atraumatic Neck: Supple Respiratory: Diminished Cardiovascular: Regular rate/rhythm, Edema Gastrointestinal: Soft and benign, Non-distended Musculoskeletal: No clubbing, No contractures Integumentary: No rashes, No cyanosis Neurological: Normal speech Blood work reviewed in the chart Imagings Data: EXAM DESCRIPTION: [place] Single View05/03/2022 3:12 pm CLINICAL HISTORY: CHEST PAIN. Chest tightness. Headaches COMPARISON: Chest Single View dated 07/20/2020; Chest Single View dated 04/03/2018; Chest Single View dated 08/07/2015; CHEST PA AND LAT 2 VIEW dated 06/12/2014 TECHNIQUE: Portable AP view of the chest. FINDINGS: Developing bibasilar patchy airspace opacities more pronounced on the right. Prominent central interstitium. No pneumothorax. There may be a small right pleural effusion. The cardiomediastinal contours are unchanged, with stable mild cardiomegaly. IMPRESSION: Pattern of central venous congestion with developing bibasilar airspace opacities more confluent on the right. Superimposed pneumonia should be considered. EXAM DESCRIPTION: CT - Chest For Pe Angio - 05/03/2022 4:32 pm CLINICAL HISTORY: Chest pain. Elevated troponin and d-dimer COMPARISON: 07/20/2020. TECHNIQUE: Dynamically enhanced axial 3 mm thick images of the chest were obtained during administration of 66 mL Isovue 370 IV contrast. Coronal and oblique reconstruction images were generated and reviewed. Exam utilizes a protocol for optimal evaluation of pulmonary arterial tree. All CT scans are performed using dose optimization technique as appropriate and may include automated exposure control or mA/KV adjustment according to patient size. FINDINGS: Pulmonary arteries show no evidence of emboli. Enlarged main pulmonary artery caliber exceeding that of the ascending aorta, which may indicate pulmonary hypertension. Mildly fusiform dilation of the ascending aorta measuring 4.3 cm. No mass or infiltrate in the lung parenchyma. Mild central interstitial prominence suggests central congestion/edema, with mild bronchovascular thickening. Right moderate and left trace pleural effusion, with underlying atelectasis. No pneumothorax. No abnormal mediastinal or hilar masses or lymphadenopathy seen. No chest wall mass or abnormal axilliary lymphadenopathy. IMPRESSION: No evidence of acute pulmonary embolus. Enlarged main pulmonary artery caliber exceeding that of the ascending aorta, which may indicate pulmonary hypertension. Mild central interstitial prominence suggests central congestion/edema. Right moderate and left trace pleural effusion. Mildly fusiform dilation of the ascending aorta measuring 4.3 cm. LEFT VENTRICULAR WALL MOTION: UNABLE TO EVALUATE DUE TO POOR WINDOWS DOPPLER/COLOR FLOW: SEE BELOW COMMENTS: 1. VERY LIMITED STUDY DUE TO POOR WINDOWS 2. LEFT VENTRICULAR EJECTION FRACTION IS DEPRESSED 40%. RECOMMEND CONTRAST ECHOCARDIOGRAM TO BETTER EVALUATE. 3. MILD MITRAL REGURGITATION 4. VERY POOR WINDOWS. Conclusions/Impression: Stage I JONATHAN likely CRS CKD IIIb with proteinuria -No NSAIDs -Continue diuresis Hypokalemia -Replete potassium -Start spironolactone HTN with CKD/ CHF -Continue Coreg Systolic CHF, A/C -Continue furosemide -Start spironolactone DM II with CKD -RISS -Hold Metformin Anemia in chronic illness Leukocytopenia -Monitor CBC Thank you kindly for the consultation
--- NOTE | 2022-05-04 18:21 | CON ---
Date of Consultation: 05/04/2022 Reason For Consultation: Shortness of breath and heart failure symptoms. History Of Present Illness: This is a 71-year-old male with a past medical history of stage IV lung cancer, diabetes, diastolic heart failure, dyslipidemia, peripheral vascular disease, presented with chest pain for the past 2-3 days, on and off, along with shortness of breath and orthopnea and lower extremity edema. Cardiac enzymes have been negative, but definitely had orthopnea and edema suggesti ve of heart failure. Past Medical History: As outlined above in HPI. Medications: Refer to reconciliation sheet for detailed list. Allergies: CODEINE AND CETUXIMAB. Family History: No premature coronary artery disease or cancer. Social History: He is an ex-smoker. Does not drink or use drugs. Review of Systems: All systems reviewed and they were negative except what mentioned in HPI. Physical Examination: Vital signs: Reviewed. Temperature is 97.7, pulse 68, breathing at 18, blood pressure is 140/69, sa turating 96% on room air. General: Pleasant elderly male, in no apparent distress. Head and Neck: Pupils are equal, reactive to light. Intact eye movements. Mild JVD elevation. Lungs: Decreased breathing sounds bilaterally. No accessory muscle use or muscle traction. Heart: Regular rate and rhythm. No extra sounds. Abdomen: Soft, nontender. Bowel sounds positive. No organomegaly. No masses or hernia. No rigidi ty or rebound. Extremities: Trace edema. No clubbing or cyanosis. Intact pulses. Skin: No rash. Neurologic: Alert, awake, oriented x3. No acute focal deficits appreciated. Investigations: BUN 24, creatinine 1.69. Troponin 90 and then 81, and his hemoglobin is 8.4. NT-pr oBNP was 15,673. Assessment And Recommendations: 1.Acute on chronic systolic heart failure exacerbation. His EF is low, but the echo was of very poo r quality and could not get accurate assessment of his ejection fraction. Recommend to continue diur esis. The patient is doing well on that, one more day and re-evaluate labs in the morning. 2.Elevated troponin with a drop in ejection fraction. Obtain a Lexiscan nuclear stress test tomorro w to further evaluate. 3.Dyslipidemia. Continue statin. SR/MODL Voice ID: [id number] Report ID: [id number]
[2022-05-04 19:15] VITALS: BMI 31.8
[2022-05-04] MEDS ORDERED: SPIRONOLACTONE 25 MG TABLET PO ONE (20:00)
[2022-05-04] MEDS ORDERED: POTASSIUM CL SA 10 MEQ TAB PO ONE (20:00)
[2022-05-04] MEDS ORDERED: FUROSEMIDE 40 MG/4 ML VIAL IV SCH (21:00)
--- NOTE | 2022-05-04 22:28 | P.PN ---
Date of Service: 05/04/22 Subjective: feeling better breathing more comfortably chest pain nearly resolved / minimal ROS: A complete review of systems was performed and is negative except as mentioned above Physical Exam: Gen: NAD, AOx3 HEENT: normal conjunctiva, sclera anicteric CV: regular rate & rhythm, no edema Pulm: non-labored respirations, diminished at R lung base Abd: soft, non-tender, non-distended Neuro: normal speech, normal affect, moves all extremities vitals reviewed Problem List Chest pain Acute on chronic diastolic CHF Moderate R pleural effusion, small left pleural effusion JONATHAN on CKD 3 Diabetes mellitus type 2insulin-dependent Hypertension PAD Hyperlipidemia Leukopenia Stage IV lung cancer on chemotherapy troponin mildly elevated, suspected demand ischemia - secondary to chemo/CHF, pleural effusion chest pain resolved trop trending down cardiology consulted possibly secondary to pleural effusion unclear etiology of R>L pleural effusion, he has been told he had fluid on lungs before, but unable to tell me severity has never undergone thoracentesis, that he can recall continue lasix ideally avoid thoracentesis at this time - immunocompromised; pt does not want thoracentesis at this time improving, O2 supplementation need decreasing Code: full Dispo: home, ~tomorrow Time Spent Managing Pts Care (In Minutes): 35
[2022-05-05 03:40] LABS: Hematocrit 24.9 % (39.6-49.0); Lymphocytes % 46.4 % (15.3-44.8); MPV 7.9 fL (7.6-11.3); RBC Red Blood Cell Count 2.74 M/uL (4.33-5.43)
[2022-05-05 04:08] LABS: Phosphorus 2.8 mg/dL (2.5-4.9); Potassium 3.2 mmol/L (3.5-5.1); Uric Acid 7.9 mg/dL (3.5-7.2)
[2022-05-05 05:43] LABS: Specific Gravity 1.017 (1.005-1.030); Urine Bacteria None Seen /HPF (<20); Urine Bilirubin NEGATIVE (Negative); Urine Blood Negative (Negative); Urine Clarity Clear (Clear); Urine Color Yellow (Yellow); Urine Glucose NEGATIVE (Negative); Urine Mucus Slight /HPF (None Seen); Urine Protein 1+ (Negative); Urine RBC <5 /HPF (None Seen); Urine Urobilinogen Normal (Normal); Urine pH 5.5 (5.0-7.0)
[2022-05-05 05:47] VITALS: BP 142/70
[2022-05-05 06:15] LABS: UR MICROALBUMIN 20.2 mg/dL (< 1.9)
[2022-05-05] MEDS: INSULIN -REGULAR HUMAN 50 UNIT/0.5 ML ML SQ SCH (07:30)
--- NOTE | 2022-05-05 08:02 | RAD REPORT ---
EXAM DESCRIPTION: Jose C Single View3 5:35 am CLINICAL HISTORY: Pleural effusion COMPARISON: May 03, 2022 FINDINGS: Moderate right pleural effusion with basilar atelectasis unchanged Mild bilateral interstitial lung opacities probably mild interstitial pulmonary edema. Heart remains enlarged
[2022-05-05] MEDS: carvediloL 12.5 MG TAB PO SCH ×2 (09:00→09:32)
[2022-05-05] MEDS: ASPIRIN EC 81 MG TAB PO SCH (09:00)
[2022-05-05] MEDS ORDERED: SPIRONOLACTONE 25 MG TABLET PO SCH (09:00)
[2022-05-05] MEDS: HEPARIN 5000 UNIT/ML 1 ML VIAL SQ SCH (09:00)
[2022-05-05] MEDS: FENOFIBRATE 160 MG TAB PO SCH (09:20)
[2022-05-05] MEDS: ATORVASTATIN 20 MG TAB PO SCH (09:21)
[2022-05-05] MEDS: CLOPIDOGREL 75 MG TABLET PO SCH (09:21)
[2022-05-05] MEDS: MIRTAZAPINE 15 MG TAB PO SCH (09:22)
[2022-05-05] MEDS: ESCITALOPRAM 20 MG TAB PO SCH (09:22)
[2022-05-05] MEDS: FUROSEMIDE 40 MG/4 ML VIAL IV SCH (09:23)
[2022-05-05] MEDS ORDERED: POTASSIUM CL SA 10 MEQ TAB PO ONE (09:36)
[2022-05-05 09:39] VITALS: TEMP 98.1
[2022-05-05] MEDS ORDERED: MAGNESIUM OXIDE 400 MG TAB PO SCH (10:00)
[2022-05-05] MEDS ORDERED: REGADENOSON 0.4 MG/5 ML SYR IV ONE (10:03)
[2022-05-05 12:10] VITALS: O2SAT 95
--- NOTE | 2022-05-05 14:00 | P.DS ---
Admission Date: 05/03/22 Discharge Date: 05/05/22 Disposition: ROUTINE DISCHARGE Discharge Condition: GOOD Reason for Admission: Shortness of breath Consultations: Cardiology - Dr. Hdz Nephrology - Dr. Gandara Pulmonary - Dr. Zarco Brief History of Present Illness: 71-year-old male with history of stage IV lung cancer on chemotherapy, insulin- dependent diabetes, hypertension, chronic pain, chronic diastolic CHF, hyperlipidemia, PAD presents to the emergency department for chest pain. He reports intermittent chest pain over the course of the last 2 to 3 days described as tightness with associated shortness of breath. He also reports 8 pound weight gain in the course of the last 1 week as well as increasing dyspnea/dyspnea on exertion. He was evaluated here in the emergency department his labs were significant for leukopenia white blood cell count 1.9 hemoglobin 8.2 D-dimer 1459 troponin 112.6 BNP 15,673 creatinine 1.96 GFR 36, baseline creatinine appears to be around 1.7. Patient last had chemotherapy on 04/22/2022. He had a CT PE protocol performed in the emergency department which was negative for pulmonary embolism but did show enlarged main pulmonary artery caliber exceeding that of a sending artery which may indicate pulmonary hypertension. Mild central interstitial prominence suggesting central congestion/edema. Right moderate and left trace pleural effusion. Mildly fu siform dilation of the ascending aorta measuring 4.3 cm. ED provider wishes to admit for ACS rule out/chest pain/dyspnea with elevated troponin. Hospital Course: Problem list Chest pain Acute on chronic diastolic CHF Moderate R pleural effusion, small left pleural effusion JONATHAN on CKD 3 Diabetes mellitus type 2insulin-dependent Hypertension PAD Hyperlipidemia Leukopenia Stage IV lung cancer on chemotherapy Patient presented with chest pain and shortness of breath. He was noted to have bilateral pleural effusions and edema. His symptoms resolved with IV diuresis. Cardiology, Nephrology, and pulmonology were consulted. No need for thoracentesis at this time. Recommended to continue diuretics as prescribed at home, with addition of spir onolactone. Troponin's remained negative / flat. EKG without acute ischemic changes. He is to follow up with Dr. Hdz for outpatient stress testing. Follow up: PCP within 1 week Oncology as scheduled Cardiology for stress testing Nephrology in a few weeks Vital Signs/Physical Exam: Temp Pulse Resp BP Pulse Ox 98.1 F 77 16 142/70 H 95 05/05/22 08:00 05/05/22 09:32 05/05/22 08:00 05/05/22 09:32 05/05/22 08:00 Physical Exam: Gen: NAD, AOx3 HEENT: normal conjunctiva, sclera anicteric CV: regular rate & rhythm, no edema Pulm: non-labored respirations, diminished at R lung base Abd: soft, non-tender, non-distended Neuro: normal speech, normal affect, moves all extremities vitals reviewed Laboratory Data at Discharge: WBC 2.10 K/uL (4.3-10.9) L 05/05/22 02:31 Hgb 8.5 g/dL (13.6-17.9) L 05/05/22 02:31 Hct 24.9 % (39.6-49.0) L 05/05/22 02:31 Plt Count 173 K/uL (152-406) 05/05/22 02:31 Sodium 138 mmol/L (136-145) 05/05/22 02:31 Potassium 3.2 mmol/L (3.5-5.1) L 05/05/22 02:31 BUN 18 mg/dL (7-18) 05/05/22 02:31 Creatinine 1.65 mg/dL (0.70-1.30) H 05/05/22 02:31 Glucose 124 mg/dL (74-106) H 05/05/22 02:31 Uric Acid 7.9 mg/dL (3.5-7.2) H 05/05/22 02:31 Phosphorus 2.8 mg/dL (2.5-4.9) 05/05/22 02:31 Magnesium 1.6 mg/dL (1.6-2.4) 05/03/22 15:10 Triglycerides 114 mg/dL (<150) 05/04/22 03:13 Cholesterol 112 mg/dL (<200) 05/04/22 03:13 HDL Cholesterol 34 mg/dL (40-60) L 05/04/22 03:13 Cholesterol/HDL Ratio 3.29 05/04/22 03:13 Home Medications: Alprazolam 1 mg PO BEDTIME PRN 01/15/14 Clopidogrel Bisulfate [Clopidogrel] 75 mg PO DAILY 01/15/14 Glimepiride 4 mg PO BID 01/15/14 Metformin HCl 500 mg PO BID 01/15/14 Hydrocodone 10/APAP 325 [[place] 10/325*] 1 tab PO SEECOM PRN 08/30/18 Senosides [Senokot*] 1 tab PO BID PRN 08/30/18 Torsemide [Demadex*] 20 mg PO DAILY 08/30/18 Escitalopram [Lexapro*] 10 mg PO DAILY 07/21/20 Fenofibrate [Tricor*] 160 mg PO DAILY 07/21/20 Mirtazapine [Remeron*] 15 mg PO DAILY 07/21/20 traMADol HCL [Ultram*] 50 mg PO Q6H PRN #30 tab 07/22/20 Atorvastatin Calcium 20 mg PO DAILY 05/03/22 Furosemide 40 mg PO BID 05/03/22 Insulin Glargine,Hum.rec.anlog [Lantus Solostar] 10 units SQ DAILY 05/03/22 Losartan Potassium [Cozaar*] 100 mg PO DAILY 05/03/22 carvediloL [Carvedilol] 6.25 mg PO BID 05/03/22 Spironolactone [Aldactone*] 25 mg PO DAILY 30 Days #30 tab 05/05/22 New Medications: Spironolactone [Aldactone*] 25 mg PO DAILY 30 Days #30 tab Physician Discharge Instructions: Patient presented with chest pain and shortness of breath. He was noted to have bilateral pleural effusions and edema. His symptoms resolved with IV diuresis. Cardiology, Nephrology, and pulmonology were consulted. No need for thoracentesis at this time. Recommended to continue diuretics as prescribed at home, with addition of spironolactone. Troponin's remained negative / flat. EKG without acute ischemic changes. He is to follow up with Dr. Hdz for outpatient stress testing. Follow up: PCP within 1 week Oncology as scheduled Cardiology for stress testing Nephrology in a few weeks Followup: Nathen Yoon MD [Primary Care Provider] - (Call to schedule appointment.) Time spent managing pt's care (in minutes): 45
== END 2022-05-05 11:12 | disposition home or self-care (01) ==
LOC: ER 14:46 → ERHOLD 19:24 → 2ND 20:40
PROVIDERS: ADMIT Hospitalist; ATTEND Hospitalist
DX: R07.9 Chest pain, unspecified (principal); C34.90 Malignant neoplasm of unspecified part of unspecified bronchus or lung; E11.22 Type 2 diabetes mellitus with diabetic chronic kidney disease; I13.0 Hypertensive heart and chronic kidney disease with heart failure and stage 1 through stage 4 chronic kidney disease, or unspecified chronic kidney disease; I50.32 Chronic diastolic (congestive) heart failure; I73.9 Peripheral vascular disease, unspecified; J90 Pleural effusion, not elsewhere classified; N18.32 Chronic kidney disease, stage 3b; E78.5 Hyperlipidemia, unspecified; N17.9 Acute kidney failure, unspecified; D72.819 Decreased white blood cell count, unspecified; E87.70 Fluid overload, unspecified; R60.9 Edema, unspecified; R80.9 Proteinuria, unspecified; E87.6 Hypokalemia; D63.1 Anemia in chronic kidney disease; Z88.6 Allergy status to analgesic agent; Z79.4 Long term (current) use of insulin; Z88.8 Allergy status to other drugs, medicaments and biological substances; Z87.891 Personal history of nicotine dependence
CPT/HCPCS: 93005; 93306; 85025 ×3; 81001 ×2; 80048 ×3; 36415 ×2; 83735; 84100; 80061; 82947 ×6; 85379; 84550; 84443; 82570; 84484 ×3; 84439; 83880; 82043; 71275; 71045 ×2; 99285; 87811; Q9967; J1940 ×4; J1644; J2785; G0378

== ENCOUNTER 2022-05-26 09:12 | Emergency (ER) | payer MEDICARE ==
--- NOTE | 2022-05-26 09:57 | RAD REPORT ---
EXAM DESCRIPTION: Jose C Single View05/26/2022 9:33 am CLINICAL HISTORY: Shortness of breath COMPARISON: May 05, 2022 FINDINGS: Mild bilateral pulmonary opacities Small to moderate right pleural effusion with basilar atelectasis Heart is moderately enlarged IMPRESSION: Mild CHF
[2022-05-26] MEDS ORDERED: NITROGLYCERIN 1 GM PKT TD ONE (10:02)
[2022-05-26] MEDS ORDERED: FUROSEMIDE 40 MG/4 ML VIAL ONE (10:02)
[2022-05-26 10:03] LABS: Absolute Lymphocytes (CBC) 1.1 K/uL (0.7-4.9); Hematocrit 30.2 % (39.6-49.0); Lymphocytes % 19.5 % (15.3-44.8); MPV 7.9 fL (7.6-11.3); RBC Red Blood Cell Count 3.05 M/uL (4.33-5.43)
[2022-05-26 10:20] LABS: Albumin 3.5 g/dL (3.4-5.0); Bilirubin Total 0.6 mg/dL (0.2-1.0); Potassium 3.5 mEq/L (3.5-5.1); Troponin High Sensitivity 22.5 pg/mL (<58.9)
[2022-05-26 11:03] LABS: Anisocytosis 3+; Blood Morphology Comment NOTED (NOT SEEN); Platelet Estimate ADEQ; Polychromasia 1+; White Blood Cell Scan OK (OK)
[2022-05-26 11:22] LABS: SARS-CoV-2 Antigen Rapid Res Negative (Negative)
--- NOTE | 2022-05-26 11:33 | EDPHYS ---
Physician Documentation [facility] Name: Brando Pizarro Age: 71 yrs Sex: Male : 1950 Arrival Date: 05/26/2022 Time: 09:13 Bed 15 Private MD: Nathen Yoon E ED Physician Kevin Dudley HPI: 05/26 09:36 This 71 yrs old Male presents to ER via Wheelchair with complaints of Doctor Referral. rt 09:36 Patient with history of lung cancer and congestive heart failure presents to the ED rt with progressively worsening swelling. Patient was admitted about a month ago for congestive heart failure, had improvement with IV diuretics, about 2 days following this, had worsening swelling. This has been progressing throughout this time. He has not been able to get his outpatient stress testing done. The patient states that he has difficulty walking due to the shortness of breath as well as cannot lie down flat due to the shortness of breath. Reports a chest tightness. Denies other acute complaints at this time, symptoms are moderate in severity, no other aggravating or alleviating factors.. Historical: - Allergies: 09:24 Codeine; ss - PMHx: 09:24 Anxiety; brain cancer; stage 4 lung cancer; Hypertension; Diabetes - NIDDM; Chronic ss pain; neuropathy; - Immunization history:: Adult Immunizations unknown. - Social history:: Smoking status: . - Family history:: not pertinent. ROS: 09:36 Constitutional: Negative for fever, chills, and weight loss, Abdomen/GI: Negative for rt abdominal pain, nausea, vomiting, diarrhea, and constipation, Skin: Negative for injury, rash, and discoloration, Neuro: Negative for headache, weakness, numbness, tingling, and seizure, Psych: Negative for depression, anxiety, suicide ideation, homicidal ideation, and hallucinations. 09:36 Cardiovascular: Positive for Chest tenderness, edema. 09:36 Respiratory: Positive for dyspnea on exertion, orthopnea, shortness of breath. Exam: 09:36 Constitutional: This is a well developed, well nourished patient who is awake, alert, rt and in no acute distress. Head/Face: Normocephalic, atraumatic. Chest/axilla: Normal chest wall appearance and motion. Nontender with no deformity. No lesions are appreciated. Cardiovascular: Regular rate and rhythm with a normal S1 and S2. No gallops, murmurs, or rubs. Normal PMI, no JVD. No pulse deficits. Abdomen/GI: Soft, non-tender, with normal bowel sounds. No distension or tympany. No guarding or rebound. No evidence of tenderness throughout. MS/ Extremity: Pulses equal, no cyanosis. Neurovascular intact. Full, normal range of motion. Neuro: Awake and alert, GCS 15, oriented to person, place, time, and situation. Cranial nerves II-XII grossly intact. Motor strength 5/5 in all extremities. Sensory grossly intact. Cerebellar exam normal. Normal gait. Psych: Awake, alert, with orientation to person, place and time. Behavior, mood, and affect are within normal limits. 09:36 Respiratory: Bibasilar crackles, no respiratory distress. 09:36 Musculoskeletal/extremity: 4+ pitting bilateral lower extremity edema. 09:46 ECG was reviewed by the Attending Physician. rt Vital Signs: 09:22 BP 155 / 73; ss 09:24 Pulse 58; Temp 97.8; Pulse Ox 95% ; db 10:00 BP 130 / 65; Pulse 51; Resp 16; Pulse Ox 97% on R/A; db 10:30 BP 113 / 81; Pulse 64; Resp 16; Pulse Ox 100% on R/A; db 10:45 Resp 16; Weight 117.93 kg; eb 11:45 BP 146 / 61; Pulse 54; Resp 16; Pulse Ox 98% on R/A; db 12:00 BP 161 / 77; Pulse 54; Resp 16; Pulse Ox 99% on R/A; db MDM: 09:16 Patient medically screened. rt 15:28 Differential diagnosis: CHF, PE, pneumonia, pneumothorax. Data reviewed: vital signs, rt nurses notes, lab test result(s), EKG, radiologic studies. Consideration of Admission/Observation Patient requires admission to the hospital, he request to be transferred to [facility], will do so.. Management of patient was discussed with the following: Hospitalist: Agrees to accept patient in transfer. I considered the following discharge prescriptions or medication management in the emergency department Medications were administered in the Emergency Department. See MAR. Test considered but Not performed: CT: Low suspicion for PE, CT angiogram not indicated. Care significantly affected by the following chronic conditions: Congestive Heart Failure, Cancer. Counseling: I had a detailed discussion with the patient and/or guardian regarding: the historical points, exam findings, and any diagnostic results supporting the discharge/admit diagnosis, the presence of at least one elevated blood pressure reading (>120/80) during this emergency department visit, radiology results, the need for further work-up and treatment in the hospital. Response to treatment: the patient's symptoms have markedly improved after treatment. 05/26 09:25 Order name: CBC with Diff; Complete Time: 11:18 rt 05/26 09:25 Order name: CMP; Complete Time: 10:23 rt 05/26 09:25 Order name: Troponin High Sensitivity; Complete Time: 10:23 rt 05/26 09:25 Order name: BNP; Complete Time: 10:23 rt 05/26 10:43 Order name: SARS RAPID; Complete Time: 11:30 eb 05/26 11:04 Order name: CBC Smear Scan; Complete Time: 11:18 EDMS 05/26 09:25 Order name: Chest Single View XRAY; Complete Time: 10:02 rt 05/26 09:25 Order name: EKG; Complete Time: 09:26 rt 05/26 09:25 Order name: EKG - Nurse/Tech; Complete Time: 10:02 rt EC:46 Rate is 52 beats/min. Rhythm is regular, Sinus bradycardia with Occasional PVCs. TX rt interval is prolonged at 228 msec. QRS interval is normal. QT interval is normal. No Q waves. 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 marshall db
--- NOTE | 2022-05-26 11:33 | ER ---
Nurse's Notes [facility] Name: Brando Pizarro Age: 71 yrs Sex: Male : 1950 Arrival Date: 05/26/2022 Time: 09:13 Bed 15 Private MD: Nathen Yoon E Diagnosis: Acute on chronic combined systolic (congestive) and diastolic (congestive) heart failure Presentation: 05/26 09:22 Chief complaint: Patient states: SOB that has been ongoing since the beginning of the ss month. Pt reports a recent weight gain of 20 lbs in 2 weeks. HX of Lung CA and CHF. Coronavirus screen: Client denies travel out of the [place] in the last 14 days. Ebola Screen: Patient denies exposure to infectious person. Patient denies travel to an Ebola-affected area in the 21 days before illness onset. Initial Sepsis Screen: Does the patient meet any 2 criteria? No. Patient's initial sepsis screen is negative. Does the patient have a suspected source of infection? No. Patient's initial sepsis screen is negative. Risk Assessment: Do you want to hurt yourself or someone else? Patient reports no desire to harm self or others. Onset of symptoms was May 12, 2022. 09:22 Method Of Arrival: Wheelchair ss 09:22 Acuity: YUMIKO 3 ss Triage Assessment: :27 General: Appears in no apparent distress. comfortable, Behavior is calm, cooperative. db Pain: Complains of pain in right leg and left leg. Neuro: Level of Consciousness is awake, alert, obeys commands, Oriented to person, place, time, situation, Speech is normal, Pupils are. Historical: - Allergies: :24 Codeine; ss - PMHx: :24 Anxiety; brain cancer; stage 4 lung cancer; Hypertension; Diabetes - NIDDM; Chronic ss pain; neuropathy; - Immunization history:: Adult Immunizations unknown. - Social history:: Smoking status: . - Family history:: not pertinent. Screenin:05 [facility] ED Fall Risk Assessment (Adult) History of falling in the last 3 months, db including since admission No falls in past 3 months (0 pts) Confusion or Disorientation No (0 pts) Intoxicated or Sedated No (0 pts) Impaired Gait No (0 pts) Mobility Assist Device Used No (0 pt) Altered Elimination Yes (1 pt) Score/Fall Risk Level 0 - 2 = Low Risk Oriented to surroundings, Maintained a safe environment. Abuse screen: Denies threats or abuse. Denies injuries from another. Nutritional screening: No deficits noted. Tuberculosis screening: No symptoms or risk factors identified. Assessment: 11:05 Reassessment: Patient appears in no apparent distress at this time. Patient and/or db family updated on plan of care and expected duration. Pain level reassessed. Patient is alert, oriented x 3, equal unlabored respirations, skin warm/dry/pink. 12:54 Reassessment: Patient appears in no apparent distress at this time. Patient and/or db family updated on plan of care and expected duration. Pain level reassessed. Patient is alert, oriented x 3, equal unlabored respirations, skin warm/dry/pink. patient transferred via EMS. General: Appears in no apparent distress. comfortable, Behavior is calm, cooperative. Vital Signs: 09:22 BP 155 / 73; ss 09:24 Pulse 58; Temp 97.8; Pulse Ox 95% ; db 10:00 BP 130 / 65; Pulse 51; Resp 16; Pulse Ox 97% on R/A; db 10:30 BP 113 / 81; Pulse 64; Resp 16; Pulse Ox 100% on R/A; db 10:45 Resp 16; Weight 117.93 kg; eb 11:45 BP 146 / 61; Pulse 54; Resp 16; Pulse Ox 98% on R/A; db 12:00 BP 161 / 77; Pulse 54; Resp 16; Pulse Ox 99% on R/A; db Vitals: 10:00 Cardiac Rhythm Assessment Irregular Sinus monica. db ED Course: 09:13 Patient arrived in ED. am2 09:13 Nathen Yoon MD is Private Physician. am2 09:14 Kevin Dudley MD is Attending Physician. rt 09:24 Triage completed. ss 09:24 Beckie Pruitt, JYOTHI is Primary Nurse. db 09:24 Arm band placed on right wrist. ss 09:34 Chest Single View XRAY In Process Unspecified. EDMS 09:55 Inserted saline lock: 20 gauge in left antecubital area, using aseptic technique. Blood db collected. 10:42 initiated a transfer with Juan Francisco Tsai from the [facility] at the eb request of the patient. 11:16 connected the hospitalist immigration investigator for [facility] with Dr. Dudley for patient eb transfer consultation. 11:31 administrative approval given by Juan Francisco Tsai Rn/ patient guzman been accepted to [facility]/ Dr. Dent in [place] has accepted the patient i transfer/ report to be called to [phone]. 11:52 Patient has correct armband on for positive identification. Bed in low position. Call db light in reach. Side rails up X 1. Client placed on continuous cardiac and pulse oximetry monitoring. NIBP monitoring applied. 11:53 Report given to Beckie ROE given report at receiving [facility]. db 12:55 No provider procedures requiring assistance completed. Patient transferred, IV remains db in place. Administered Medications: 10:07 Drug: Furosemide IVP 40 mg Route: IVP; Site: left antecubital; db 12:38 Follow up: Response: No adverse reaction db 10:07 Drug: Nitroglycerin Transdermal Ointment 2 % 0.5 inches Route: Transdermal; Site: db anterior chest wall; 12:38 Follow up: Response: No adverse reaction db Medication: 12:56 VIS not applicable for this client. db Outcome: 11:32 ER care complete, transfer ordered by MD. rt 12:55 Transferred by ground EMS to [facility], Transfer form completed. db 12:55 Condition: stable 12:55 Instructed on the need for transfer. 12:56 Patient left the ED. db Signatures: Dispatcher [employer] EDMS Sharla Schofield RN RN ss Moreno, Amanda am2 Botello, Elizabeth eb Benton, Danielle, RN RN db [place]ton, Ryan, MD MD rt Corrections: (The following items were deleted from the chart) 09:24 09:24 PMHx: Cancer; ss ss
[2022-05-26 13:15] VITALS: TEMP 97.8
[2022-05-26 13:25] VITALS: BP 161/77; O2SAT 99
--- NOTE | 2022-05-27 12:17 | EKG ---
Test Date: 2022-05-26 Test Time: 09:40:25 Rehabilitation Physician: JORGE ALBERTO MEASUREMENT RESULTS: Intervals: Rate: 52 DE: 228 QRSD: 112 QT: 448 QTc: 416 [place]: P: 18 DE: 228 QRS: -42 T: 166 INTERPRETIVE STATEMENTS: Sinus bradycardia with 1st degree AV block with occasional premature ventricular complexes Left axis deviation Inferior infarct, age undetermined Anteroseptal infarct, age undetermined ST & T wave abnormality, consider lateral ischemia Abnormal ECG Electronically Signed On 05-27-22 12:13:47 CDT by Jesse Hdz
== END 2022-05-26 12:56 | disposition short-term general hospital (02) ==
LOC: ER 09:12
DX: I50.43 Acute on chronic combined systolic (congestive) and diastolic (congestive) heart failure (principal); I10 Essential (primary) hypertension; Z20.822 Contact with and (suspected) exposure to COVID-19; Z85.841 Personal history of malignant neoplasm of brain; Z85.118 Personal history of other malignant neoplasm of bronchus and lung
CPT/HCPCS: 93005; 85025; 36415; 84484; 80053; 83880; 71045; 96374; 99285; 87811; J1940